=== PATIENT | female | born 1950 | race Caucasian/White ===

== ENCOUNTER → 2016-12-22 | Outpatient (CLI) | payer OTHER ==
[2012-10-12 14:31] VITALS: BP 179/59
--- NOTE | 2016-12-22 12:46 | MG ---
HISTORY: SCREENING Comparison: 06/18/2015, 06/03/2014 FINDINGS: Bilateral CC and MLO projections of the right and left breast were obtained. Scattered fibroglandul ar tissue is seen to be present. No significant architectural distortion, mass or clustered microca lcifications can be observed to suggest malignancy. No skin thickening or nipple retraction is appr eciated. No pathological lymphadenopathy can be identified. Partially visualized battery pack in t he left chest wall. IMPRESSION: NO RADIOGRAPHIC EVIDENCE OF MALIGNANCY. ACR CATEGORY I - NEGATIVE EXAM. FOLLOW-UP EXAM 1 YEAR. Diagnostic CAD was utilized and reviewed. * 0 (ZERO) - ASSESSMENT INCOMPLETE; ADDITIONAL IMAGING IS NEEDED. * 1/ (ONE) - NEGATIVE. * 2/II (TWO) - BENIGN FINDINGS. * 3/III (THREE) - PROBABLY BENIGN FINDING; SHORT INTERVAL FOLLOW-UP SUGGESTED. * 4/IV (FOUR) - SUSPICIOUS ABNORMALITY; BIOPSY SHOULD BE CONSIDERED. * 5/V - HIGHLY SUSPICIOUS OF MALIGNANCY; BIOPSY SHOULD BE PERFORMED. A NEGATIVE X-RAY REPORT SHOULD NOT DELAY BIOPSY IF A DOMINANT OR CLINICALLY SUSPICIOUS MASS IS PRESENT; 4 TO 8 PERCENT OF CANCERS ARE NOT IDENTIFIED BY X-RAY. A NEG ATIVE REPORT MAY REINFORCE THE CLINICAL IMPRESSION. ADENOSIS AND DENSE BREASTS MAY OBSCURE AN UNDER LYING NEOPLASM. Reported By:
== END ==
LOC: RAD 10:02
PROVIDERS: ATTEND Nurse Practitioner Family
DX: Z12.31 Encounter for screening mammogram for malignant neoplasm of breast (principal)
CPT/HCPCS: 77067

== ENCOUNTER → 2017-02-09 | Outpatient (CLI) | payer OTHER ==
[2012-10-12 14:31] VITALS: BP 179/59
--- NOTE | 2017-02-09 16:19 | RAD ---
HISTORY: PREOP. Study: PA and lateral chest. Comparison: Chest x-ray dated October 11, 2012 Findings: The trachea is midline. The cardiac silhouette is at the upper limits of normal. Interval placement of a multilead left chest cardiac pacemaker.. The lungs are clear without focal infiltrate or effu thai. The bony thorax is unremarkable. IMPRESSION: 1. No acute cardiopulmonary disease. Reported By:
== END | disposition home or self-care (01) ==
LOC: RAD 15:29
PROVIDERS: ATTEND Nurse Practitioner Family
DX: Z01.811 Encounter for preprocedural respiratory examination (principal); M25.561 Pain in right knee; M17.11 Unilateral primary osteoarthritis, right knee
CPT/HCPCS: 71020

== ENCOUNTER 2017-04-15 15:05 | Emergency (ER) | payer OTHER ==
[2017-04-15 15:18] VITALS: BP 152/74; BMI 43.2
[2017-04-15] MEDS ORDERED: DEMEROL INJ IM ONE (15:56)
[2017-04-15] MEDS ORDERED: PHENERGAN INJ 25 MG IM ONE (15:57)
[2017-04-15] MEDS ORDERED: DEMEROL INJ ONE (16:00)
[2017-04-15] MEDS ORDERED: PHENERGAN INJ 25 MG ONE (16:00)
--- NOTE | 2017-04-15 16:00 | DR.GENAD ---
HPI - PCP Primary Care Physician: NFD - Complaint/Symptoms Chief Complaint Doctors Comments: Patient is complaining of right ankle and foot pain all day. States she had right knee surgery recently and has been going to therapy with a little pain yesterday in her right foot but today she is unable to stand or put weight on the right ankle or foot. states the pain is 10 of 10. States she took oxycodone 10mg earlier today without improvement. States she is taking aspirin but she was on Eliquis for four weeks after the surgery. she denies chest pain or SOB. Patient states the new exercises is probabley what caused her ankle to hurt because it started hurting while she was doing the new exercise and has continurelly gotten worst. States she does not want crutches because she is using a walker presently. Chief Complaint:: PT STATES "I HAD KNEE SURGERY ON MARCH 06. I WAS AT THERAPY YESTERDAY ON THE BICYCLE MACHINE AND MY FOOT STARTED HURTING THEN. IT'S GOT WORSE THROUGH THE NIGHT. NOW IT'S UNBEARABLE." - Nurses notes reviewed Nurses Notes Review: Yes - Source History Provided: Patient, Family Member - Mode of Arrival Mode of Arrival: Wheelchair - Timing Onset of Chief Complaint: 04/14/17 Came on: Gradually - Duration Duration: Constant How lon Duration: Days - Location Location: right foot and ankle pain - Severity Severity: Severe - Modifying Factors Worsens:: standing or walking Improves:: rest PMH - PMH Past Medical History: No Past Medical History: Coronary Artery Disease, Hypertension Past Surgical History: Yes Surgical History: CABG/Valve Surgery, Cholecystectomy, RUGBY UNION FOOTBALLER Surgery, Ortho Surgery Past Surgical History Comment: PACEMAKER - SET AT 64. STENT X1. CERVICAL NECK FUSION. RIGHT TOTAL KNEE REPLACEMENT. GALLBLADDER REMOVAL. TUBAL LIGATION - Family History History of Family Medical Conditions: Yes Family Medical History: Cancer, [place], Coronary Artery Disease, Heart Failure, Hypertension - Social History Does patient currently use any type of tobacco product: No Have you used tobacco products in the last 12 months: No Type of Tobacco Use: Cigarettes How many years tobacco product used: 10 Does any household member use tobacco: Yes Alcohol Use: None Do you use any recreational Drugs:: No Lives With: Spouse Lives Where: Home - infectious screening In the last 2 months have you had wt loss of >10#?: NO Have you had fever, night sweats or hemotysis?: No Have you traveled outside the country in the last 6 months?: No Isolation: Standard ROS - Review of Systems Constitutional: No Symptoms Reported. negative: See HPI, Chills, Diaphoresis, Fever, Malaise, Weakness, Irritable, Fatigue, Loss of Appetite, Other Eyes: No Symptoms Reported. negative: See HPI, Eye Pain, Blurred Vision, Tearing, Discharge, Photophobia, Diplopia, Other ENTM: No Symptoms Reported. negative: See HPI, Ear Pain, Ear Discharge, Pulling on Ears, Hearing Loss, Nose Pain, Nose Discharge, Epistaxis, Nose Congestion, Mouth Pain, Mouth Swelling, Loose Teeth, Drooling, Throat Pain, Throat Swelling, Ear Foreign Body Respiratoy: No Symptoms Reported. negative: See HPI, Productive Cough, Non- Productive Cough, Moist Cough, Dry Cough, Hacking Cough, Barking Cough, Brassy Cough, Orthopnea, Short of Breath, Stridor, Wheezing, Hemoptysis, Other Cardiovascular: No Symptoms Reported. negative: See HPI, Chest Pain, Edema, Palpitations, Syncope, Cyanosis, Skin Mottling, Other Gastrointestinal/Abdominal: No Symptoms Reported. negative: Abdominal Pain, Diarrhea Genitourinary: No Symptoms Reported. negative: See HPI, Discharge, Dysuria, Frequency, Hematuria, Pain, Bleeding, Other Neurological: No Symptoms Reported Musculoskeletal: No Symptoms Reported, Right, Ankle (swelling, warm, tender), Foot Integumentary: No Symptoms Reported Hematologic/Lymphatic: No Symptoms Reported. negative: See HPI, Anemia, Blood Clots, Easy Bleeding, Easy Bruising, Swollen Glands, Lymphadenopathy, Other Endocrine: No Symptoms Reported Psychiatric: No Symptoms Reported PE - Vital Signs Vitals: Temperature 98.0 F Pulse Rate 89 Respiratory Rate 24 Blood Pressure [Right Arm] 179/59 Blood Pressure 152/74 O2 Sat by Pulse Oximetry 97 - General Limitations: No Limitations General Appearance: Alert, In Distress - Head Head Exam: Normal Inspection, Atraumatic, Normocephalic - Eyes Eye exam: Normal Appearance, PERRL, EOMI. negative: Scleral Icterus, Conjunctival Injection, Nystagmus, Miosis, Mydrasis, Periorbital Swelling, Periorbital Tenderness, Other - ENT ENT Exam: Normal Exam, Normal Oropharynx, Normal External Ear Exam, Mucous Membranes Moist, TM's Normal Bilaterally External Ear Exam: Normal External Inspection TM/Canal Exam: Bilateral Normal Nose Exam: Normal Nose Exam Mouth Exam: Normal Inspection Throat Exam: Normal Inspection - Neck Neck Exam: Normal Inspection, Full ROM, Trachea Midline - Chest Chest Inspection: Normal Inspection, Symmetric Chest Wall Rise - Respiratory Respiratory Exam: Normal Lung Sounds Bilat Respiratory Exam: Bilateral Clear to Auscultation - Cardiovascular Cardiovascular Exam: Regular Rate, Normal Rhythm, Normal Heart Sounds, Systolic Murmur - Abdominal Exam Abdominal Exam: Normal Inspection, Normal Bowel Sounds Abdominal Tenderness: negative: RUQ, RLQ, LUQ, LLQ, Epigastrium, Suprapubic, Diffuse, Mild, Moderate, Severe, Other - Extremities Extremities Exam: Normal Inspection, Full ROM, Normal Capillary Refill, Joint Swelling - Back Back Exam: Normal Inspection, Full ROM. negative: Tenderness, (R) CVA Tenderness, (L) CVA Tenderness, Muscle Spasm, Paraspinal Tenderness, Vertebral Tenderness, Rashes, (R) Sciatic Notch Tenderness, (L) Sciatic Notch Tendern, (R ) Straight Leg Raise, (L) Straight Leg Raise, Other - Neurologic Neurological Exam: Alert, Oriented X3, CN II-XII Intact, Reflexes Normal. negative: Normal Gait (gait not tested) - Skin Skin Exam: Warm, Dry, Intact, Normal Color ROR - Labs Reviewed Laboratory Results Reviewed?: Yes (all labs and x-ray results reviewed and discussed with patient) Result Diagrams: 04/15/17 16:14 04/15/17 16:14 Laboratory: WBC 14.7 X10^3/uL (3.6-10.0) H 04/15/17 16:14 RBC 4.11 X10^6/uL (3.5-5.4) 04/15/17 16:14 Hgb 12.4 g/dL (12.0-16.0) 04/15/17 16:14 Hct 37.3 % (36.0-47.0) 04/15/17 16:14 MCV 90.7 fL (80.0-100.0) 04/15/17 16:14 MCH 30.3 pg (27.0-34.0) 04/15/17 16:14 MCHC 33.4 g/dL (33.0-35.0) 04/15/17 16:14 RDW 14.0 % (11.6-16.5) 04/15/17 16:14 Plt Count 310 X10^3/uL (150.0-450.0) 04/15/17 16:14 MPV 9.5 fL (7.4-11.0) 04/15/17 16:14 Neut % 68.4 % (42.0-75.0) 04/15/17 16:14 Lymph % 21.4 % (21.0-51.0) 04/15/17 16:14 [place] % 8.2 % (0.0-13.0) 04/15/17 16:14 Eos % 1.1 % (0.9-2.9) 04/15/17 16:14 Baso % 0.9 % (0.2-1.0) 04/15/17 16:14 Neut # 10.1 x10^3/uL (2.2-4.8) H 04/15/17 16:14 Lymph # 3.1 X10^3/uL (1.3-2.9) H 04/15/17 16:14 [place] # 1.2 x10^3/uL (0.3-0.8) H 04/15/17 16:14 Eos # 0.2 x10^3/uL (0.0-0.2) 04/15/17 16:14 Baso # 0.1 X10^3/uL (0.0-0.1) 04/15/17 16:14 Absolute Nucleated RBC 0.0 /100WBC 04/15/17 16:14 D-Dimer > 5000 ng/mL (0-400) H* 04/15/17 16:14 Sodium 137 mmol/L (136-145) 04/15/17 16:14 Corrected Sodium 138 mmol/L (136-145) 04/15/17 16:14 Potassium 3.4 mmol/L (3.5-5.1) L 04/15/17 16:14 Chloride 103 mmol/L (98-107) 04/15/17 16:14 Carbon Dioxide 24.8 mmol/L (21-32) 04/15/17 16:14 BUN 18 mg/dL (7-18) 04/15/17 16:14 Creatinine 1.05 mg/dL (0.55-1.02) H 04/15/17 16:14 Est GFR (MDRD) Af Amer > 60 (>60) 04/15/17 16:14 Est GFR (MDRD) Non-Af 56 (>60) L 04/15/17 16:14 Glucose 121 mg/dL (65-99) H 04/15/17 16:14 Uric Acid 5.0 mg/dL (2.6-6.0) 04/15/17 16:14 Calcium 8.8 mg/dL (8.5-10.1) 04/15/17 16:14 - XRAY XRAY Interpreted by: Radiologist (Venous doppler: Negative for DVT) XRAY Findings: right forx x-ray: No acute osseous abnormalities identified. Osteopenia - Diagnosis Discharge Problem: Ankle pain, right, Tendonitis of ankle, Hyperglycemia Strain of ankle, right Qualifiers: Encounter type: initial encounter Qualified Code(s): S96.911A - Strain of unspecified muscle and tendon at ankle and foot level, right foot, initial encounter - Discharge Plan Disposition: 01 HOME, SELF-CARE Condition: Stable Prescriptions: Naproxen [Naprosyn] 500 mg PO BID PRN #24 tab PRN Reason: Pain/Inflammation - Follow ups/Referrals Follow ups/Referrals: Gaurav ROWE [Primary Care Provider] - 3 days RACHELLE LINARES [STAFF PHYSICIAN] - 3 days - Instructions Instructions: Tendinitis and Tenosynovitis-SportsMed, Tendon Injury
[2017-04-15] MEDS ORDERED: SOLU-Medrol 125 MG VIAL ONE (16:34)
[2017-04-15] MEDS ORDERED: TORADOL 30 MG VIAL IVP ONE (16:34)
[2017-04-15] MEDS ORDERED: SOLU-Medrol 125 MG VIAL IVP ONE (16:34)
[2017-04-15] MEDS ORDERED: TORADOL 30 MG VIAL ONE (16:34)
[2017-04-15 16:59] LABS: BLOOD UREA NITROGEN 18 mg/dL (7-18); CALCIUM 8.8 mg/dL (8.5-10.1); CARBON DIOXIDE 24.8 mmol/L (21-32); CHLORIDE 103 mmol/L (98-107); COR NA(FOR HYPERGLY) 138 mmol/L (136-145); CREATININE 1.05 mg/dL (0.55-1.02); SODIUM 137 mmol/L (136-145); eGFR BLACK RACES > 60 (>60); eGFR NON BLACK RACES 56 (>60)
[2017-04-15 17:00] LABS: BASOPHILS # (AUTO) 0.1 X10^3/uL (0.0-0.1); BASOPHILS % (AUTO) 0.9 % (0.2-1.0); EOSINOPHILS # (AUTO) 0.2 x10^3/uL (0.0-0.2); EOSINOPHILS % (AUTO) 1.1 % (0.9-2.9); HEMATOCRIT 37.3 % (36.0-47.0); HEMOGLOBIN 12.4 g/dL (12.0-16.0); LYMPHOCYTES # (AUTO) 3.1 X10^3/uL (1.3-2.9); LYMPHOCYTES % (AUTO) 21.4 % (21.0-51.0); MEAN CORPUSCULAR HEMOGLOBIN 30.3 pg (27.0-34.0); MEAN CORPUSCULAR HGB CONC 33.4 g/dL (33.0-35.0); MEAN CORPUSCULAR VOLUME 90.7 fL (80.0-100.0); MEAN PLATELET VOLUME 9.5 fL (7.4-11.0); MONOCYTES # (AUTO) 1.2 x10^3/uL (0.3-0.8); MONOCYTES % (AUTO) 8.2 % (0.0-13.0); NEUTROPHILS # (AUTO) 10.1 x10^3/uL (2.2-4.8); NEUTROPHILS % (AUTO) 68.4 % (42.0-75.0); PLATELET COUNT 310 X10^3/uL (150.0-450.0); RED BLOOD COUNT 4.11 X10^6/uL (3.5-5.4); WHITE BLOOD COUNT 14.7 X10^3/uL (3.6-10.0)
--- NOTE | 2017-04-15 17:12 | RAD ---
History: Right ankle pain Technique: Three views of the right ankle Comparison:NONE Findings: There is mild soft tissue swelling along the lateral aspect of the ankle. There is generalized osteop enia. There is no acute fracture or dislocation demonstrated. The ankle mortise and talar dome are in tact. Impression: 1. Lateral soft tissue swelling. No acute osseous abnormalities are demonstrated. 2. Osteopenia. Reported By:
--- NOTE | 2017-04-15 17:13 | RAD ---
History: Right foot pain. Technique: Three views of the right foot Comparison:NONE Findings: There is generalized osteopenia. There is no acute fracture or dislocation demonstrated. The tarsomet atarsal articulations appear aligned. Impression: 1. No acute osseous abnormalities identified. 2. Osteopenia Reported By:
--- NOTE | 2017-04-15 18:09 | VAS ---
HISTORY: Pain Study: Venous Doppler Comparison: None TECHNIQUE: Multiple marin scale and color flow Doppler images of the deep venous system were obtained of the right lower extremity FINDINGS: There is normal respiratory phasicity, compression and augmentation of the extremity veins without ev idence of acute DVT. IMPRESSION: 1. Negative for DVT. Reported By:
== END 2017-04-15 18:50 | disposition home or self-care (01) ==
LOC: ER 15:24
DX: S96.911A Strain of unspecified muscle and tendon at ankle and foot level, right foot, initial encounter (principal); M25.571 Pain in right ankle and joints of right foot; M77.9 Enthesopathy, unspecified; R73.9 Hyperglycemia, unspecified; Y33.XXXA Other specified events, undetermined intent, initial encounter; Y92.89 Other specified places as the place of occurrence of the external cause; M85.80 Other specified disorders of bone density and structure, unspecified site; R79.1 Abnormal coagulation profile
CPT/HCPCS: 36415; 73610; 73630; 80048; 84550; 85025; 85378; 93971; 96365; 96372; 96374; 96375; 99283; A4222; J1885; J2175; J2550; J2930

== ENCOUNTER 2017-05-20 21:55 | Emergency (ER) | payer OTHER ==
[2017-05-20 22:34] VITALS: BP 153/64; BMI 41.8
[2017-05-20] MEDS ORDERED: PHENERGAN INJ 25 MG IM ONE (23:20)
[2017-05-20] MEDS ORDERED: DEMEROL INJ IM ONE (23:20)
[2017-05-20] MEDS ORDERED: PREDNISONE TAB 20 MG PO ONE ×2 (23:21→23:42)
--- NOTE | 2017-05-20 23:26 | DR.GENAD ---
HPI - PCP Primary Care Physician: Yaakov WILCOX NANNY CAREGIVER - Complaint/Symptoms Chief Complaint Doctors Comments: Patient is complaining of severe left hip pain for the past 24 hours getting worst today with problems walking due to the hip pain. Patient states the pain is 10 of 10. she denies any recent trauma. States she just had right knee surgery in [place] recently and she has had a problem with stenosis in her back. She states she just went to her 's 50th class re-union and she had to take six Alieve 200mg and it still did not control the pain. She denies dysuria, hematuia, fever or chills. Chief Complaint:: LEFT HIP PAIN SINCE YESTERDAY EVENING. CAN'T HARDLY WALK, CAN' T STAND, CAN'T SIT WITHOUT HURTING Self Treatment fo Chief Complaint: ALEVE LAST TAKEN 2 HOURS AGO 400MG. 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 , Ortho Surgery, Tonsillectomy Past Surgical History Comment: PACE MAKER/STENT, CERVICAL FUSION - Family History History of Family Medical Conditions: Yes Family Medical History: Cancer, [place], Coronary Artery Disease, Heart Failure, Hypertension Family Medical History Comment: RENAL DISEASE, CVA - Social History Does patient currently use any type of tobacco product: No Have you used tobacco products in the last 12 months: No Type of Tobacco Use: None Does any household member use tobacco: No Alcohol Use: None Do you use any recreational Drugs:: No Lives With: Spouse Lives Where: Home - infectious screening In the last 2 months have you had wt loss of >10#?: NO Have you had fever, night sweats or hemotysis?: No Have you traveled outside the country in the last 6 months?: No Isolation: Standard ROS - Review of Systems Constitutional: No Symptoms Reported. negative: See HPI, Chills, Diaphoresis, Fever, Malaise, Weakness, Irritable, Fatigue, Loss of Appetite, Other Eyes: No Symptoms Reported. negative: See HPI, Eye Pain, Blurred Vision, Tearing, Discharge, Photophobia, Diplopia, Other ENTM: No Symptoms Reported Respiratoy: No Symptoms Reported. negative: See HPI, Productive Cough, Non- Productive Cough, Moist Cough, Dry Cough, Hacking Cough, Barking Cough, Brassy Cough, Orthopnea, Short of Breath, Stridor, Wheezing, Hemoptysis, Other Cardiovascular: No Symptoms Reported. negative: See HPI, Chest Pain, Edema, Palpitations, Syncope, Cyanosis, Skin Mottling, Other Gastrointestinal/Abdominal: No Symptoms Reported. negative: See HPI, Abdominal Pain, Constipation, Diarrhea, Nausea, Vomiting, Food Intolerance, Other Genitourinary: No Symptoms Reported. negative: See HPI, Discharge, Dysuria, Frequency, Hematuria, Pain, Bleeding, Other Neurological: No Symptoms Reported Musculoskeletal: No Symptoms Reported, Left, Hip Integumentary: No Symptoms Reported. negative: See HPI, Change in Color, Change in Hair/Nails, Dryness, Lesions, Lumps, Rash, Itching, Wound, Bruises, Juandice, Other Hematologic/Lymphatic: No Symptoms Reported Endocrine: No Symptoms Reported Psychiatric: No Symptoms Reported PE - Vital Signs Vitals: Temperature 98.4 F Pulse Rate 67 Respiratory Rate 20 Blood Pressure [Right Arm] 179/59 Blood Pressure 153/64 O2 Sat by Pulse Oximetry 98 - General Limitations: No Limitations General Appearance: Alert, In Distress (moderate), Obese - Head Head Exam: Normal Inspection, Atraumatic, Normocephalic - Eyes Eye exam: Normal Appearance, PERRL, EOMI, Scleral Icterus. negative: Conjunctival Injection, Nystagmus, Miosis, Mydrasis, Periorbital Swelling, Periorbital Tenderness, Other - ENT ENT Exam: Normal Exam, Normal Oropharynx, Normal External Ear Exam, Mucous Membranes Moist, TM's Normal Bilaterally External Ear Exam: Normal External Inspection TM/Canal Exam: Bilateral Normal Nose Exam: Normal Nose Exam Mouth Exam: Normal Inspection Throat Exam: Normal Inspection - Neck Neck Exam: Normal Inspection, Full ROM, Trachea Midline - Chest Chest Inspection: Normal Inspection, Symmetric Chest Wall Rise - Respiratory Respiratory Exam: Normal Lung Sounds Bilat Respiratory Exam: Bilateral Clear to Auscultation - Cardiovascular Cardiovascular Exam: Regular Rate, Normal Rhythm, Normal Heart Sounds. negative : Bradycardia, Tachycardia, Irregular Rhythm, Systolic Murmur, Diastolic Murmur , Rubs, Gallop, Clicks, JVD, +S1, +S2, +S3, +S4, Other - Abdominal Exam Abdominal Exam: Normal Inspection, Normal Bowel Sounds, Soft, Dimnished Bowel Sounds. negative: Distention, Tenderness, Guarding, Rebound, Rigidity, Hyperactive Bowel Sounds, Hypoactive Bowel Sounds, Organomegaly, Trauma, Incision, Ascites, Mass, Bruit, Pulsatile Mass, Hernia, Other Abdominal Tenderness: negative: RUQ, RLQ, LUQ, LLQ, Epigastrium, Suprapubic, Diffuse, Mild, Moderate, Severe, Other - Extremities Extremities Exam: Normal Inspection, Full ROM, Tenderness (left hip tender on palpation), Normal Capillary Refill - Back Back Exam: Normal Inspection, Full ROM, Tenderness (lower singer back tender L4 midline ), Paraspinal Tenderness. negative: (R) Straight Leg Raise, (L) Straight Leg Raise - Neurologic Neurological Exam: Alert, Oriented X3, CN II-XII Intact, Reflexes Normal. negative: Normal Gait (gait not tested) - Psychiatric Psychiatric Exam: Normal Affect, Normal Mood - Skin Skin Exam: Warm, Dry, Intact, Normal Color ROR - Labs Reviewed Laboratory Results Reviewed?: Yes (all x-ray results reviewed and discussed with patient and spouse) - XRAY XRAY Interpreted by: Self (left hip: no fracture or dislocation noted; Early degenerative changes noted.) - Diagnosis Discharge Problem: Left hip pain, Degenerative arthritis of hip, Degenerative arthritis of lumbar spine - Discharge Plan Disposition: 01 HOME, SELF-CARE Condition: Stable Prescriptions: Hydrocodone-Acet 7.5 mg/325 mg [[place] 7.5/325 mg Tab] 1 tab PO Q8H PRN #21 tab PRN Reason: Pain Methylprednisolone Dosepak 4Mg [MEDROL DOSEPAK (4 mg tab x 21)] 1 jitendra PO ONCE # 1 jitendra - Follow ups/Referrals Follow ups/Referrals: MIKE WILCOX [Primary Care Provider] - 3 days RACHELLE LINARES [STAFF PHYSICIAN] - 3 days - Instructions Instructions: Degenerative Disk Disease, Osteoarthritis, Joint Pain
[2017-05-20] MEDS ORDERED: DEMEROL INJ ONE (23:42)
[2017-05-20] MEDS ORDERED: PHENERGAN INJ 25 MG ONE (23:42)
[2017-05-21] MEDS ORDERED: TORADOL 60 MG VIAL ONE (01:06)
[2017-05-21] MEDS ORDERED: TORADOL 60 MG VIAL IM ONE (01:07)
--- NOTE | 2017-05-21 03:21 | RAD ---
Left hip three views Indication: Left hip pain. Findings: There is no cortical lucency or malalignment. Mild bilateral hip joint and SI joint DJD not ed. Bowel-gas fears sacrum. Impression: No acute left hip fracture. Reported By:
== END 2017-05-21 01:40 | disposition home or self-care (01) ==
LOC: ER 21:55
DX: M19.90 Unspecified osteoarthritis, unspecified site (principal); M47.896 Other spondylosis, lumbar region; M25.552 Pain in left hip
CPT/HCPCS: 73501; 96372; 99282; J1885; J2175; J2550; J7506

== ENCOUNTER 2017-05-25 09:15 | Day surgery (SDC) | payer OTHER ==
--- NOTE | 2017-05-25 12:00 | DR.H&P ---
H&P - History & Physical for Day of: H&P Date: 05/25/17 - Chief Complaint Chief Complaint: my back hurts on lower left side down to my left ankle. - Allergies Allergies/Adverse Reactions: Allergies Allergy/AdvReac Type Severity Reaction Status Date / Time No Known Drug Allergies Allergy Verified 04/16/17 23:30 - History of Present Illness History of Present Illness: pt reports long h/o above cc. received reggie x2 [address] Ly with very good results. presents today with similar pain. pain began about 2 weeks ago with no obvious cause. pt unable to have MRI secondary to PM. 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 pos slr on right.) Mood Description: Calm Speech Pattern: Clear - Assessment/Plan (1) Radiculopathy of lumbar region Status: Acute Plan: Interlaminar REGIGE L4-5 left
[2017-05-25] MEDS ORDERED: MARCAINE 0.25% INJ ONE (12:06)
[2017-05-25] MEDS ORDERED: KENALOG INJ 40 MG IM ONE (12:06)
[2017-05-25] MEDS ORDERED: XYLOCAINE 1 % (PLAIN) ONE (12:06)
== END 2017-05-25 12:30 | disposition home or self-care (01) ==
LOC: SURG1 09:15
PROVIDERS: ATTEND Student in an Organized Health Care Education/Training Program
PROC: 3E0R3BZ Introduction of Anesthetic Agent into Spinal Canal, Percutaneous Approach (ICD-10-PCS; 2017-05-25)
PROC: 3E0R33Z Introduction of Anti-inflammatory into Spinal Canal, Percutaneous Approach (ICD-10-PCS; principal; 2017-05-25 09:00)
DX: M54.17 Radiculopathy, lumbosacral region (principal)
CPT/HCPCS: 62323; 76000; S0020; J2001; J3301

== ENCOUNTER 2017-06-12 11:34 | Day surgery (SDC) | payer OTHER ==
--- NOTE | 2017-06-12 12:58 | DR.H&P ---
H&P - History & Physical for Day of: H&P Date: 06/12/17 - Chief Complaint Chief Complaint: lower back hurts into left buttock - Allergies Allergies/Adverse Reactions: Allergies Allergy/AdvReac Type Severity Reaction Status Date / Time No Known Drug Allergies Allergy Verified 04/16/17 23:30 - History of Present Illness History of Present Illness: planned reggie of L4-5 two weeks ago resulted in more of L3-4. good relief down leg, but stil pain in buttock on left. good results 8 years ago with series of reggie's - Past Medical History Past Medical History: Coronary Artery Disease, Hypertension - Past Surgical History Surgical History: Appendectomy, CABG/Valve Surgery, Cholecystectomy, TIE SAWYER Surgery , Ortho Surgery, Tonsillectomy - Family History Family Medical History: Cancer, [place], Coronary Artery Disease, Heart Failure, Hypertension - Physical Exam Vital Signs: Temperature 98.1 F Pulse Rate 68 Respiratory Rate 20 Blood Pressure [Right Arm] 179/59 Blood Pressure 153/64 O2 Sat by Pulse Oximetry 98 Musculoskeletal: Back:Lumbar (lumbar tenderness on left.) Psychiatric: Normal Mood Description: Calm - Assessment/Plan (1) Radiculopathy of lumbar region Status: Acute Plan: L4-5 interlaminar reggie left
[2017-06-12] MEDS ORDERED: XYLOCAINE 1 % (PLAIN) ONE (12:59)
[2017-06-12] MEDS ORDERED: KENALOG INJ 40 MG IM ONE (12:59)
[2017-06-12] MEDS ORDERED: MARCAINE 0.25% INJ ONE (13:00)
[2017-06-12 13:41] VITALS: BP 148/62
== END 2017-06-12 13:30 | disposition home or self-care (01) | DRG 552 ==
LOC: SURG1 11:34
PROVIDERS: ATTEND Student in an Organized Health Care Education/Training Program
PROC: 3E0R3BZ Introduction of Anesthetic Agent into Spinal Canal, Percutaneous Approach (ICD-10-PCS; 2017-06-12)
PROC: 3E0R33Z Introduction of Anti-inflammatory into Spinal Canal, Percutaneous Approach (ICD-10-PCS; principal; 2017-06-12 13:30)
DX: M54.5 Low back pain (principal); M54.17 Radiculopathy, lumbosacral region
CPT/HCPCS: 62323; 76000; S0020; J2001; J3301

== ENCOUNTER → 2017-07-13 | Outpatient (CLI) | payer OTHER ==
--- NOTE | 2017-07-13 16:04 | CT ---
Lumbar spine CT without contrast Indication: Severe lower back pain Technique: Helical CT images of the lumbar spine were obtained without IV contrast. Reformatted image s in the coronal and sagittal planes were also generated for review. Comparison: None Findings: Vertebral body heights and alignment are normal. No acute fracture or subluxation is identi fied. There is mild-moderate multilevel degenerative disc disease and facet arthropathy, most signifi cant at L4-L5. There are also prominent broad-based disc bulges at L2-L3, L3-L4 and L4-L5, which resu lt in moderate-severe canal stenosis and at least mild bilateral foraminal narrowing. The SI joints a re intact. There is mild calcification of the aortoiliac system without aneurysm. There is colonic diverticulosi s without evidence of acute inflammation. The remaining unenhanced visualized paraspinal soft tissues are grossly unremarkable. Impression: No acute osseous abnormality of the lumbar spine. Moderate multilevel degenerative changes of the lumbar spine, as detailed above. If clinically warran zelda, further evaluation with MRI is recommended. Additional incidental findings, as above. Reported By:
== END ==
LOC: RAD 13:24
PROVIDERS: ATTEND Nurse Practitioner Family
DX: M54.17 Radiculopathy, lumbosacral region (principal); M25.552 Pain in left hip; M79.605 Pain in left leg
CPT/HCPCS: 72131

== ENCOUNTER → 2018-01-07 | Outpatient (CLI) | payer OTHER ==
[2018-01-07 14:02] VITALS: BP 148/62
--- NOTE | 2018-01-07 15:13 | RAD ---
Examination: Right foot, three views History: Fell Comparison reference April 15, 2017 Findings: There is a faint lucency identified involving the distal neck of the 4th metatarsal. This w as not seen on a prior examination. There is no other suggestion of fracture or dislocation in the ri t foot. Impression: Subtle lucency distal 4th metatarsal. Correlate clinically for localized injury to this a jennifer. Follow-up as appropriate. Reported By:
== END ==
LOC: RAD 14:47
PROVIDERS: ATTEND Nurse Practitioner Family
DX: M25.571 Pain in right ankle and joints of right foot (principal)
CPT/HCPCS: 73630

== ENCOUNTER 2018-11-17 09:51 | Observation (INO) ==
--- NOTE | 2018-11-17 10:03 | DR.EXTPAIN ---
HPI - Time seen Time seen: 10:03 - Complaint/Symptoms Chief Complaint Doctor Comments: Patient states she getting ready to take a shower and had the water running and she stepped into the shower but forgot something and stepped back out on a title floor and her foot was wet and she slide and fell hitting her right knee and the back of her head. She denies LOC, nausea or vomiting. States the pain is 9 of 10 in her right knee and back of her head. She is able to move her neck well and denies neck pain. States her left foot hurts and she do not remember hitting it. She is unsure of her last tetanus. States she is a patient of Jana Mccall and she is taking Lisinopril 40mg po qhs; aspirin 81mg; lipitor 40mg and genfebolate. She denies chest pain or SOB. - Nurses notes reviewed Nurses Notes Review: Yes - Source History Provided: Patient - Mode of arrival Mode of Arrival: EMS - Context History of: Arthritis, Knee Operation, Shoulder Operation - Associated signs and symptoms Associated Signs and Symptoms: Laceration (right knee 6x9 cm laceration), Pain PMH - PMH Past Medical History: Coronary Artery Disease, Hypertension Past Surgical History: Yes Surgical History: Appendectomy, CABG/Valve Surgery, Cholecystectomy, TRANSITION OF CARE SPECIALIST Surgery, Ortho Surgery, Tonsillectomy - Family History Family Medical History: Cancer, [place], Coronary Artery Disease, Heart Failure, Hypertension - Social History Do you use any recreational Drugs:: No ROS - Review of Systems Constitutional: No Symptoms Reported Eyes: No Symptoms Reported ENTM: No Symptoms Reported Respiratoy: No Symptoms Reported Cardiovascular: No Symptoms Reported. negative: See HPI, Chest Pain, Edema, Palpitations, Syncope, Cyanosis, Skin Mottling, Other Gastrointestinal/Abdominal: No Symptoms Reported. negative: See HPI, Abdominal Pain, Constipation, Diarrhea, Nausea, Vomiting, Food Intolerance, Other Genitourinary: No Symptoms Reported Neurological: No Symptoms Reported, Problems Walking (right knee pain) Musculoskeletal: No Symptoms Reported, Right, Left, Knee, Foot Integumentary: No Symptoms Reported, Wound (right knee with 6 x 9 cm evulsion laceration with adipose tissue evident) Hematologic/Lymphatic: No Symptoms Reported, Easy Bruising Endocrine: No Symptoms Reported Psychiatric: No Symptoms Reported. negative: See HPI, Anxiety, Depression, Hallucinations, Excessive crying, Suicidal, Other PE - General Limitations: No Limitations General Appearance: Alert, In Distress (moderate), Obese - Head Head Exam: Normal Inspection, Normocephalic. negative: Atraumatic (4 cm soft tissue nodule left occipital scalp) - Eyes Eye exam: Normal Appearance, PERRL, EOMI. negative: Scleral Icterus, Conjunctival Injection, Nystagmus, Miosis, Mydrasis, Periorbital Swelling, Periorbital Tenderness, Other - ENT ENT Exam: Normal Exam, Normal Oropharynx, Normal External Ear Exam, Mucous Membranes Moist, TM's Normal Bilaterally - Neck Neck Exam: Normal Inspection, Full ROM, Trachea Midline - Chest Chest Inspection: Normal Inspection, Symmetric Chest Wall Rise. negative: Tenderness, Rash, Abscess, Other - Respiratory Respiratory Exam: Normal Lung Sounds Bilat Respiratory Exam: Bilateral Clear to Auscultation - Cardiovascular Cardiovascular Exam: Regular Rate, Normal Rhythm, Normal Heart Sounds - Abdominal Exam Abdominal Exam: Normal Inspection, Normal Bowel Sounds, Soft Abdominal Tenderness: negative: RUQ, RLQ, LUQ, LLQ, Epigastrium, Suprapubic, Diffuse, Mild, Moderate, Severe, Other - Extremities Extremities Exam: Normal Inspection, Full ROM, Tenderness (right knee with large laceratio; tender on movement), Normal Capillary Refill. negative: Calf Tend erness - Upper Extremities Shoulder Exam: Normal Inspection, Full ROM Arm Exam: Normal Inspection, Full ROM. negative: Tenderness, Swelling, Abrasion, Laceration, Ecchymosis, Deformity, Crepitus, Erythema, Other Elbow Exam: Normal Inspection, Full ROM. negative: Tenderness, Swelling, Abrasion, Laceration, Ecchymosis, Deformity, Crepitus, Dislocation, Erythema, Effusion, Pain w/ pronation, Pain w/ Spuination, Tenderness over Radial Head, Other Forearm Exam: Normal Inspection, Full ROM. negative: Tenderness, Swelling, Abrasion, Laceration, Ecchymosis, Deformity, Crepitus, Erythema, Dislocation, Other Hand Exam: Normal Inspection, Full ROM. negative: Tenderness, Swelling, Abrasion, Laceration, Ecchymosis, Skin Avulsion, Deformity, Crepitus, Erythema, Dislocation, Amputation, Nail Avulsion, Subungual Hematoma, Other Neuromotor Exam: Normal Exam Neurosensory Exam: Normal Exam Hand Tendon Exam: negative: Flexor Digitorium Profundus (Location) (normal) Upper Ext. Vascular Exam: Capillary Refill (normal), Radial Pulse (normal) - Lower Extremities Hip/Pelvis Exam: Normal Inspection, Full ROM. negative: Tenderness, Swelling, Abrasion, Laceration, Ecchymosis, Deformity, Crepitus, Dislocation, Erythema, External Rotation, Internal Rotation, Shortening, Pelvis Stable, Other Upper Leg Exam: Normal Inspection, Full ROM Knee Exam: Normal Inspection, Full ROM, Tenderness (right knee with large laceration), Swelling, Laceration (right knee with 9 cm laceration), Crepitus Lower Leg Exam: Normal Inspection, Full ROM. negative: Tenderness, Swelling, Abrasion, Laceration, Deformity, Ecchymosis, Crepitus, Dislocation, Erythema, Palpable Cord, Homans' Sign, Achilles Tendon Intact, Other Ankle Exam: Normal Inspection, Full ROM, Tenderness (left ankle with slight tenderness;no swelling or erythema) Foot/Toe Exam: Normal Inspection, Full ROM, Tenderness (left lateral foot worker on palpation). negative: Swelling, Abrasion, Laceration, Ecchymosis, Deformity, Crepitus, Dislocation, Erythema, Amputation, Puncture Wound, Foreign Body, Calcaneal Tenderness, Nail Avulsion, Other Neurovascular/Tendon Exam: Normal Capillary Refill Gait Exam: Not Tested/Not Observed - Back Back Exam: Normal Inspection, Full ROM. negative: Tenderness, (R) CVA Tenderness, (L) CVA Tenderness, Muscle Spasm, Paraspinal Tenderness, Vertebral Tenderness, Rashes, (R) Sciatic Notch Tenderness, (L) Sciatic Notch Tendern, (R) Straight Leg Raise, (L) Straight Leg Raise, Other - Neurological Neurological Exam: Alert, Oriented X3, CN II-XII Intact, Reflexes Normal. negative: Normal Gait (gait not tested) - Psychiatric Psychiatric Exam: Normal Affect, Normal Mood. negative: Depressed, Agitated, Anxious, Flat Affect, Manic, Homicidal Ideation, Suicidal Ideation, Other - Skin Skin Exam: Warm, Dry, Intact, Normal Color Type of Lesion: Laceration (right knee with 9 cm laceration) Distribution: negative: Generalized, Involves Palms/Soles, Head, Face, Neck, Thorax, Chest, Back, Abdomen, Genitals, LUE, LLE, RUE, RLE, Other Description: negative: Size, Tenderness, Erythematous, Swelling, Macular, Papular, Vesicular, Blisters, Cofluent, Bullous, Petechial, Purpuric, Urticarial, Crusting, Discharge, Fluctuant, Indurated, Other - Vital Signs Vitals: Temperature 97.6 F Pulse Rate 61 Respiratory Rate 16 Blood Pressure [Right Arm] 179/59 Blood Pressure 217/98 O2 Sat by Pulse Oximetry 97 Course - Consultation Called: 11:29 Call Returned: 11:30 (Dr. Dhillon to take to surgery ) - Education/Counseling Education/Counseling: Patient, Family Educated On: Treatment, Diagnosis, Needs for Follow Up ROR - Labs Reviewed Laboratory Results Reviewed?: Yes (All x-ray results reviewed and discussed with patient) - XRAY XRAY Interpreted by: Radiologist (CT head: No acute intracranial changes noted), Self (Right foot: Degenerative changes noted at ankle but not acute fracture noted.) XRAY Findings: Right knee: Postoperative changes consistent with total knee arthroplasty. - Diagnosis Discharge Problem: Contusion of right knee, initial encounter, Left foot pain, Fall against object Laceration of skin of right knee Qualifiers: Encounter type: initial encounter Qualified Code(s): S81.011A - Laceration without foreign body, right knee, initial encounter Contusion of head Qualifiers: Encounter type: initial encounter Traumatic hematoma of scalp Qualifiers: Encounter type: initial encounter Qualified Code(s): S00.03XA - Contusion of scalp, initial encounter - Discharge Plan Condition: Stable - Follow ups/Referrals Follow ups/Referrals: MIKE MCCALL [Primary Care Provider] - 3 days - Instructions
[2018-11-17 10:08] VITALS: BMI 43.8
[2018-11-17] MEDS ORDERED: ADACEL or BOOSTRIX TDaP VACCINE IM ONE ×2 (10:16→10:25)
[2018-11-17] MEDS ORDERED: DEMEROL INJ IM ONE (10:17)
[2018-11-17] MEDS ORDERED: PHENERGAN INJ 25 MG IM ONE ×2 (10:18→10:24)
[2018-11-17] MEDS ORDERED: DEMEROL INJ ONE (10:25)
--- NOTE | 2018-11-17 11:16 | CT ---
HISTORY: Trauma Study: CT brain without contrast Comparison: None Technique: Multiple axial images of the brain were obtained from the skull base to the vertex without administration of IV contrast. Findings: No acute intraparenchymal hemorrhage or mass can be identified. No extra-axial fluid collections are seen. No alteration in the attenuation of the brain parenchyma can be identified to suggest acute or subacute ischemic change. The ventricular system is symmetric and nondilated. The extracranial structures are grossly unremarkable. IMPRESSION: 1. No acute intracranial process can be identified. Reported By:
--- NOTE | 2018-11-17 11:19 | RAD ---
HISTORY: Knee pain Study: Three views right knee Comparison: None Findings: No evidence for acute cortical disruption or dislocation. Postoperative changes consistent with total knee arthroplasty are observed. No periprosthetic lucency to suggest loosening or fracture can be identified. No significant joint effusion can be observed. IMPRESSION: Postoperative changes consistent with total knee arthroplasty. No acute abnormality can be observed. Reported By:
[2018-11-17] MEDS ORDERED: NS 1000 ML 1,000 ML ONE (11:22)
--- NOTE | 2018-11-17 11:35 | RAD ---
Examination: Left ankle, three views History: Pain Findings: There is cortical irregularity and minimal fragmentation at the tips of both medial and lateral malleoli. The joint space is symmetric. No definite acute fracture or dislocation is seen. Impression: Findings described suggest residual of old trauma to the lateral and medial sides of the ankle. No acute findings are demonstrated. Reported By:
--- NOTE | 2018-11-17 11:36 | RAD ---
HISTORY: Foot pain Study: Three views left foot Comparison: None Findings: No acute cortical disruption or dislocation can be identified. No significant soft tissue swelling or injury can be seen. The visualized portions of the talus and calcaneus are unremarkable. IMPRESSION: 1. Negative exam. Reported By:
[2018-11-17] MEDS ORDERED: BACITRACIN VIAL ONE (11:44)
[2018-11-17] MEDS ORDERED: HYDROGEN PEROXIDE 3% ONE (11:44)
[2018-11-17] MEDS ORDERED: BACTROBAN TOPICAL OINT ONE (11:44)
[2018-11-17] MEDS ORDERED: XYLOCAINE 1 % (PLAIN) ONE (11:44)
[2018-11-17] MEDS ORDERED: FENTANYL INJ 100 mcg ONE (12:14)
[2018-11-17] MEDS ORDERED: ANCEF 1 GRAM IV PREMIX* 1 G/50 ML BAG IV ONE ×2 (12:17→12:23)
[2018-11-17] MEDS ORDERED: ZOFRAN INJ 4 MG VIAL IVP PRN (13:09)
[2018-11-17] MEDS ORDERED: DILAUDID INJ IVP PRN (13:09)
[2018-11-17] MEDS ORDERED: BENADRYL INJ 50 MG VIAL IVP PRN (13:09)
[2018-11-17] MEDS ORDERED: PHENERGAN INJ 25 MG IM PRN (13:09)
[2018-11-17] MEDS ORDERED: REGLAN INJ 10 MG VIAL IVP PRN (13:09)
[2018-11-17] MEDS ORDERED: PERCOCET TAB 5/325 MG PO PRN (13:41)
[2018-11-17] MEDS ORDERED: RESTORIL CAP 30 MG PO PRN (14:29)
[2018-11-17] MEDS ORDERED: NS 100 ML IV + SPIKE MINIBAG* 100 ML ONE (14:39)
[2018-11-17] MEDS ORDERED: ANCEF VIAL 1 GRAM ONE (14:40)
[2018-11-17] MEDS ORDERED: VERSED ONE (15:56)
[2018-11-17] MEDS ORDERED: DIPRIVAN VIAL ONE (15:56)
[2018-11-17] MEDS ORDERED: ZOFRAN INJ 4 MG VIAL ONE (15:56)
[2018-11-17] MEDS ORDERED: KETALAR ONE (15:56)
[2018-11-17] MEDS: NORCO 10/325 TAB PO PRN (19:25)
[2018-11-17] MEDS ORDERED: MILK OF MAGNESIA PO SCH (21:00)
[2018-11-17] MEDS ORDERED: TRICOR TAB 160 MG PO SCH (21:00)
[2018-11-17] MEDS ORDERED: COLACE CAP 100 MG PO SCH (21:00)
[2018-11-17] MEDS: ANCEF VIAL 1 GRAM IVP SCH (23:20)
[2018-11-18 04:31] VITALS: BP 143/86
[2018-11-18] MEDS: ANCEF VIAL 1 GRAM IVP SCH (05:21)
[2018-11-18] MEDS: NORCO 10/325 TAB PO PRN (06:38)
[2018-11-18] MEDS ORDERED: LIPITOR TAB 40 MG PO SCH ×2 (09:00→21:00)
[2018-11-18] MEDS ORDERED: ASPIRIN 81 MG CHEWTAB PO SCH (09:00)
[2018-11-18] MEDS ORDERED: ZESTRIL TAB 40 MG PO SCH (09:00)
[2018-11-18] MEDS ORDERED: MOBIC TAB 15 MG PO SCH (09:00)
== END 2018-11-18 10:45 | disposition home or self-care (01) ==
LOC: ER 09:53 → MED/SURG 12:07 → SURG1 12:07
PROVIDERS: ADMIT Surgery; ATTEND Surgery
PROC: WOUNDCL (2018-11-17 12:10)
DX: E66.01 Morbid (severe) obesity due to excess calories; S81.012A Laceration without foreign body, left knee, initial encounter; S00.03XA Contusion of scalp, initial encounter; M13.89 Other specified arthritis, multiple sites; Z96.652 Presence of left artificial knee joint; S00.83XA Contusion of other part of head, initial encounter; Y92.003 Bedroom of unspecified non-institutional (private) residence as the place of occurrence of the external cause; W01.198A Fall on same level from slipping, tripping and stumbling with subsequent striking against other object, initial encounter
CPT/HCPCS: 70450; 73564; 73610; 73630; 87070; 87075; 87205; 90471; 90715; 96367; 96372; 96374; 99284; A4222; J3490; G0378; J0690; J2175; J2250; J2405; J2550; J2704; J3010; J7030

== ENCOUNTER 2019-03-20 01:08 | Inpatient (IN) ==
[2019-03-20] MEDS ORDERED: MORPHINE SULFATE INJ 2 MG INJ IVP ONE (01:39)
--- NOTE | 2019-03-20 01:39 | DR.EXTPAIN ---
HPI Time seen Time Seen by Provider: 03/20/19 01:29 PCP Primary Care Physician: BRENDEN Complaint/Symptoms Chief Complaint Doctor Comments: 68 yo female who presents for right leg pain. Which has been present for abscess on leg for 4 days. She hit the leg on metal table which broke the skin. She has no pain in the knee but in the right lower leg from the knee down. She was seen by orthopedic doctor on 03/19/19 who did imaging of the knee and advised this was not intrarticular and superficial infection. She has had puss come out of the 7 lesion on her leg. She state the pain is achy, 10/10, her right leg, the pain is like burning/throbbing. She was at ED on 01/15/19 and given bactrim DS and then given keflex by orthopedic doctor. The pain and abscess are worsening. Chief Complaint:: PAIN IN R LEG, SWELLING AND LESIONS Self Treatment fo Chief Complaint: CAME TO ER ON MONDAY, WAS GIVEN BACTRIM DS Source History Provided: Patient Mode of arrival Mode of Arrival: Ambulatory Timing Onset of Chief Complaint: 03/15/19 PMH PMH Past Medical History: Yes Past Medical History: Coronary Artery Disease, Dyslipidemia, Hypertension and [place] Past Surgical History: Yes Surgical History: Angioplasty/Stents, Appendectomy, Cholecystectomy and Ortho Surgery Family History History of Family Medical Conditions: Yes Family Medical History: Cancer, [place], Coronary Artery Disease and Hypertension Social History Do you use any recreational Drugs:: No infectious screening Have you traveled outside the country in the last 6 months?: No Isolation: Standard ROS Review of Systems Constitutional: No Symptoms Reported Eyes: No Symptoms Reported ENTM: No Symptoms Reported Respiratoy: No Symptoms Reported Cardiovascular: No Symptoms Reported Gastrointestinal/Abdominal: Nausea; negative Abdominal Pain and Vomiting Genitourinary: No Symptoms Reported Neurological: Headache (not worst of life and improved from 03/17/19 ) Musculoskeletal: No Symptoms Reported Integumentary: See HPI, Lesions, Rash and Wound Endocrine: No Symptoms Reported Psychiatric: No Symptoms Reported All Other Systems: Reviewed and Negative PE Vital Signs Vitals: Temperature 97.0 F Pulse Rate 80 Respiratory Rate 20 Blood Pressure [Right Arm] 143/86 Blood Pressure 124/71 O2 Sat by Pulse Oximetry 98 General Limitations: No Limitations General Appearance: Alert, In No Apparent Distress and Anxious Head Head Exam: Normal Inspection, Atraumatic and Normocephalic Eyes Eye exam: Normal Appearance and EOMI ENT ENT Exam: Normal Exam and Normal Oropharynx Neck Neck Exam: Normal Inspection and Full ROM Chest Chest Inspection: Normal Inspection Respiratory Respiratory Exam: Normal Lung Sounds Bilat and Accessory Muscle Use Respiratory Exam: Bilateral: Clear to Auscultation Cardiovascular Cardiovascular Exam: Regular Rate and Normal Rhythm Abdominal Exam Abdominal Exam: Normal Inspection, Normal Bowel Sounds and Soft Extremities Extremities Exam: Edema and Other (erythema, pustules 6, ranging from 1 cm to 1.5cm, on medial malleous prulent abscess with drainage) Upper Extremities Hand Exam: Normal Inspection Upper Ext. Vascular Exam: Capillary Refill Lower Extremities Knee Exam: Normal Inspection and Other (right knee to ankle cellulitis ) Ankle Exam: Full ROM, Swelling and Other (neg homen sign ) Neurovascular/Tendon Exam: Normal Capillary Refill Neurological Neurological Exam: Alert, Oriented X3, CN II-XII Intact and Normal Gait Psychiatric Psychiatric Exam: Normal Affect and Normal Mood Skin Skin Exam: Erythema and Other Type of Lesion: Abscess Description: Tenderness (at lesion sites on right knee ) Front/Back of Body, Lg ([place]): 1. abscess [id number] 2. abscess 3. " " 4. " " 5. " " 6. "" MDM Differential Diagnosis Differential Diagnosis: Other (purulent cellulitis ) COURSE Treatment Treatment: IVF vancomycin Reevaluation 1st: Improved (02:30 improved, still painful) 2nd: Improved (03:51, improved still painful at ankle) Consultation Called: 03:43 Call Returned: 03:43 Consultation Comments: Dr. Fitzgerald accepted admission Education/Counseling Education/Counseling: Patient, Family, Education and Counseling Educated On: Treatment, Diagnosis, Prognosis, Needs for Follow Up and Other ROR Labs Reviewed Result Diagrams: 03/20/19 02:15 03/20/19 02:15 Laboratory: 03/20/19 01:42 Knee - Right Gram Stain - Final WBC 13.6 X10^3/uL (3.6-10.0) H 03/20/19 02:15 RBC 4.49 X10^6/uL (3.5-5.4) 03/20/19 02:15 Hgb 14.0 g/dL (12.0-16.0) 03/20/19 02:15 Hct 41.3 % (36.0-47.0) 03/20/19 02:15 MCV 91.9 fL (80.0-100.0) 03/20/19 02:15 MCH 31.2 pg (27.0-34.0) 03/20/19 02:15 MCHC 33.9 g/dL (33.0-35.0) 03/20/19 02:15 RDW 15.1 % (11.6-16.5) 03/20/19 02:15 Plt Count 199 X10^3/uL (150.0-450.0) 03/20/19 02:15 MPV 9.7 fL (7.4-11.0) 03/20/19 02:15 Neut % (Auto) 64.7 % (42.0-75.0) 03/20/19 02:15 Lymph % (Auto) 24.9 % (21.0-51.0) 03/20/19 02:15 [place] % (Auto) 7.7 % (0.0-13.0) 03/20/19 02:15 Eos % (Auto) 1.8 % (0.9-2.9) 03/20/19 02:15 Baso % (Auto) 0.9 % (0.2-1.0) 03/20/19 02:15 Neut # (Auto) 8.8 x10^3/uL (2.2-4.8) H 03/20/19 02:15 Lymph # (Auto) 3.4 X10^3/uL (1.3-2.9) H 03/20/19 02:15 [place] # (Auto) 1.0 x10^3/uL (0.3-0.8) H 03/20/19 02:15 Eos # (Auto) 0.3 x10^3/uL (0.0-0.2) H 03/20/19 02:15 Baso # (Auto) 0.1 X10^3/uL (0.0-0.1) 03/20/19 02:15 Absolute Nucleated RBC 0.0 /100WBC 03/20/19 02:15 Sodium 138 mmol/L (136-145) 03/20/19 02:15 Corrected Sodium TNP 03/20/19 02:15 Potassium 4.0 mmol/L (3.5-5.1) 03/20/19 02:15 Chloride 103 mmol/L (98-107) 03/20/19 02:15 Carbon Dioxide 22.5 mmol/L (21-32) 03/20/19 02:15 BUN 28 mg/dL (7-18) H 03/20/19 02:15 Creatinine 1.97 mg/dL (0.55-1.02) H 03/20/19 02:15 Est GFR (MDRD) Af Amer 33 (>60) L 03/20/19 02:15 Est GFR (MDRD) Non-Af 27 (>60) L 03/20/19 02:15 Glucose 106 mg/dL (65-99) H 03/20/19 02:15 Calcium 8.7 mg/dL (8.5-10.1) 03/20/19 02:15 Opioid Opioid Risk Tool Total: 0 Total Score Risk Category: Low Risk Copyright: Marko PARKS predicting aberrant behaviors Diagnosis Narrative Support Text: Failure of outpt abx treatment for purulent cellulitis and KELLEY, will continue IVF NS and IV ABX, plan discussed with Dr. Fitzgerald and family. Time was spent discussing all lab findings, imaging, and clinical thought process. The patient states understanding and agreement. All questions were answered, and time was spent educating them on care plan.
[2019-03-20] MEDS ORDERED: ZOFRAN INJ 4 MG VIAL ONE (01:45)
[2019-03-20] MEDS ORDERED: ZOFRAN INJ 4 MG VIAL IVP ONE ×2 (01:45→01:48)
[2019-03-20] MEDS ORDERED: NS 1000 ML 1,000 ML ONE (01:45)
[2019-03-20] MEDS ORDERED: VANCOMYCIN HCL 1 GM VIAL ONE ×2 (01:45→21:38)
[2019-03-20] MEDS ORDERED: NS 250 ML IV 250 ML ONE ×2 (01:47→21:38)
[2019-03-20] MEDS ORDERED: MORPHINE SULFATE INJ 2 MG INJ ONE (01:49)
[2019-03-20] MEDS ORDERED: NS 1000 ML 1,000 ML IV ONE (01:49)
[2019-03-20] MEDS ORDERED: PHARMACY CONSULT - VANCOMYCIN XX SCH ×2 (02:00→05:00)
[2019-03-20 02:26] LABS: BASOPHILS # (AUTO) 0.1 X10^3/uL (0.0-0.1); BASOPHILS % (AUTO) 0.9 % (0.2-1.0); EOSINOPHILS # (AUTO) 0.3 x10^3/uL (0.0-0.2); EOSINOPHILS % (AUTO) 1.8 % (0.9-2.9); HEMATOCRIT 41.3 % (36.0-47.0); LYMPHOCYTES # (AUTO) 3.4 X10^3/uL (1.3-2.9); LYMPHOCYTES % (AUTO) 24.9 % (21.0-51.0); MEAN CORPUSCULAR HEMOGLOBIN 31.2 pg (27.0-34.0); MEAN CORPUSCULAR HGB CONC 33.9 g/dL (33.0-35.0); MEAN CORPUSCULAR VOLUME 91.9 fL (80.0-100.0); MEAN PLATELET VOLUME 9.7 fL (7.4-11.0); MONOCYTES % (AUTO) 7.7 % (0.0-13.0); NEUTROPHILS # (AUTO) 8.8 x10^3/uL (2.2-4.8); NEUTROPHILS % (AUTO) 64.7 % (42.0-75.0); PLATELET COUNT 199 X10^3/uL (150.0-450.0); RED BLOOD COUNT 4.49 X10^6/uL (3.5-5.4); RED CELL DISTRIBUTION WIDTH 15.1 % (11.6-16.5); WHITE BLOOD COUNT 13.6 X10^3/uL (3.6-10.0)
[2019-03-20 02:31] LABS: BLOOD UREA NITROGEN 28 mg/dL (7-18); CALCIUM 8.7 mg/dL (8.5-10.1); CARBON DIOXIDE 22.5 mmol/L (21-32); CHLORIDE 103 mmol/L (98-107); CREATININE 1.97 mg/dL (0.55-1.02); SODIUM 138 mmol/L (136-145); eGFR NON BLACK RACES 27 (>60)
[2019-03-20] MEDS ORDERED: MORPHINE SULFATE INJ 2 MG INJ IVP PRN (04:01)
[2019-03-20 05:09] VITALS: BMI 40.2
[2019-03-20] MEDS ORDERED: NORCO 5/325 MG TAB ONE (05:11)
[2019-03-20] MEDS: NORCO 5/325 MG TAB PO PRN ×4 (05:18→22:55)
--- NOTE | 2019-03-20 07:48 | VAS ---
HISTORY: Right lower extremity edema Study: Right lower extremity venous Doppler Comparison: None Technique: Multiple grayscale sonographic images were obtained. Color duplex Doppler evaluation was performed. Findings: There is no evidence for deep venous thrombosis in the common femoral vein, greater saphenous junction, superficial femoral vein or popliteal veins. IMPRESSION: Exam negative for deep venous thrombosis in the right lower extremity Reported By:
--- NOTE | 2019-03-20 08:52 | DR.H&P ---
Addendum entered and electronically signed by JUAN RAMON BROWER 03/20/19 11:53: CORRECTION TO PRIOR ENTRY: PT IS 68 WHITE FEMALE Original Note: H&P - History & Physical for Day of: H&P Date: 03/20/19 - Chief Complaint Chief Complaint: right lower leg redness, pain, swelling - History of Present Illness History of Present Illness: 8 yo female who presents for right leg pain. Which has been present for abscess on leg for 4 days. She hit the leg on metal table which broke the skin. She has no pain in the knee but in the right lower leg from the knee down. She was seen by orthopedic doctor on 03/19/19 who did imaging of the knee and advised this was not intrarticular and superficial infection. She has had puss come out of the 7 lesion on her leg. She state the pain is achy, 10/10, her right leg, the pain is like burning/throbbing. She was at ED on 01/15/19 and given bactrim DS and then given keflex by orthopedic doctor. The pain and abscess are worsening. WBC 13.6 on admission. pt admitted for IV atbx therapy, wound and blood cultures. - Past Medical History Past Medical History: [place], Coronary Artery Disease, Hypertension, Dyslipidemia - Past Surgical History Surgical History: Angioplasty/Stents, Appendectomy, Cholecystectomy, SAMPLES AND REPAIRS PREPARER Surgery, Joint Replacement, Ortho Surgery - Family History Family Medical History: Cancer - Social History Does patient currently use any type of tobacco product: No Have you used tobacco products in the last 12 months: No Type of Tobacco Use: None How many years tobacco product used: 0 Does any household member use tobacco: No Alcohol Use: None Drug Use: None - Medications Home Medications: No Known Drug Allergies Allergy (Verified 11/17/18 14:16) - Review of Systems Constitutional: Fever, Weakness Eyes: No Symptoms Reported ENT: No Symptoms Reported Respiratory: No Symptoms Reported Cardiovascular: No Symptoms Reported, Edema Gastrointestinal: Nausea Genitourinary: No Symptoms Reported Musculoskeletal: Leg Pain Skin: No Symptoms Reported Neurological: No Symptoms Reported - Physical Exam Vital Signs: Temperature 97.8 F Pulse Rate [Brachial] 78 Pulse Rate 62 Respiratory Rate 14 Blood Pressure [Right Arm] 156/56 Blood Pressure 146/63 O2 Sat by Pulse Oximetry 100 Oriented: Normal Eyes: Normal Ear: Normal Nose: Normal Throat: Normal Respiratory: RLL Diminished, LLL Diminished Cardiovascular: Normal, Edema (rle, pace maker present) : Normal Auscultation: Bowel Sounds: Normal Palpation: Normal Tenderness: Normal Skin: Decreased [place], Red, Tender, Hot, Wound (rle) Musculoskeletal: Right, Leg, Swelling, Tender Psychiatric: Normal Affect: Anxious Speech Pattern: Clear, Appropriate - Assessment/Plan (1) Cellulitis and abscess of right leg Status: Acute Plan: ADMIT, BLOOD AND WOUND CULTURES ON ADMISSION. IV ATBX THERAPY, GENTLE IV HYDRATION. PAIN CONTROL, CXR ON ADMISSION. BP CONTROL, REPEAT AM LABS (2) Right knee pain Status: Acute (3) Hypertension Status: Acute - Allergies Allergies/Adverse Reactions: Allergies Allergy/AdvReac Type Severity Reaction Status Date / Time No Known Drug Allergies Allergy Verified 11/17/18 14:16
[2019-03-20] MEDS ORDERED: PHARMACY CONSULT - DOSE _____ XX SCH (09:00)
--- NOTE | 2019-03-20 09:23 | RAD ---
HISTORY: Injury, pain and swelling Study: Right knee three views Comparison: None Findings: The patient is status post total knee arthroplasty. Position and alignment is anatomic. No periprosthetic fracture or loosening is identified. The patella itself appears intact. There does appear to be some osteophyte formation projecting off the superior aspect of the patella within which there is a lucency suggestive of a fracture. IMPRESSION: Status post TKA in good position Large patellar osteophyte superiorly through which there is a lucency suspicious for a fracture. Clinical correlation as the presence or absence of point tenderness in this area should be helpful. Reported By:
--- NOTE | 2019-03-20 09:25 | RAD ---
History: Lower extremity edema Study: PA chest Comparison: February 09, 2017 Findings: The heart is mildly enlarged with intact pacemaker wire leads via the left subclavian vein. The lungs are grossly clear without edema or effusion or congestion. No significant bony abnormality is demonstrated. Impression: No evidence for acute cardiopulmonary disease Reported By:
[2019-03-20] MEDS: LOVENOX INJ 30 MG SYR SC SCH (10:17)
[2019-03-20] MEDS: ASPIRIN 81 MG CHEWTAB PO SCH (21:15)
[2019-03-20] MEDS: TRICOR TAB 160 MG PO SCH (21:16)
[2019-03-20] MEDS: LIPITOR TAB 40 MG PO SCH (21:16)
[2019-03-20] MEDS: ZESTRIL TAB 40 MG PO SCH (21:16)
[2019-03-20] MEDS: RESTORIL CAP 30 MG PO PRN (21:16)
[2019-03-20] MEDS ORDERED: VANCOMYCIN HCL 500 MG VIAL ONE (21:37)
[2019-03-20] MEDS: VANCOMYCIN HCL 500 MG VIAL 250 MG, VANCOMYCIN HCL 1 GM VIAL 1 G in D5W 250 ML IV 250 ML IV SCH (21:57)
[2019-03-21 06:37] LABS: BASOPHILS # (AUTO) 0.1 X10^3/uL (0.0-0.1); BASOPHILS % (AUTO) 0.9 % (0.2-1.0); EOSINOPHILS # (AUTO) 0.3 x10^3/uL (0.0-0.2); EOSINOPHILS % (AUTO) 3.1 % (0.9-2.9); HEMATOCRIT 36.1 % (36.0-47.0); HEMOGLOBIN 12.3 g/dL (12.0-16.0); LYMPHOCYTES # (AUTO) 3.3 X10^3/uL (1.3-2.9); LYMPHOCYTES % (AUTO) 38.4 % (21.0-51.0); MEAN CORPUSCULAR HEMOGLOBIN 31.2 pg (27.0-34.0); MEAN CORPUSCULAR HGB CONC 34.1 g/dL (33.0-35.0); MEAN CORPUSCULAR VOLUME 91.5 fL (80.0-100.0); MEAN PLATELET VOLUME 9.3 fL (7.4-11.0); MONOCYTES # (AUTO) 0.7 x10^3/uL (0.3-0.8); MONOCYTES % (AUTO) 7.7 % (0.0-13.0); NEUTROPHILS # (AUTO) 4.2 x10^3/uL (2.2-4.8); NEUTROPHILS % (AUTO) 49.9 % (42.0-75.0); PLATELET COUNT 182 X10^3/uL (150.0-450.0); RED BLOOD COUNT 3.95 X10^6/uL (3.5-5.4); RED CELL DISTRIBUTION WIDTH 14.3 % (11.6-16.5); WHITE BLOOD COUNT 8.5 X10^3/uL (3.6-10.0)
[2019-03-21 06:49] LABS: ALANINE AMINOTRANSFERASE 19 Units/L (12-78); ALBUMIN 2.4 g/dL (3.4-5.0); ALKALINE PHOSPHATASE 66 Units/L (46-116); ASPARTATE AMINO TRANSFERASE 18 Units/L (15-37); BLOOD UREA NITROGEN 17 mg/dL (7-18); CALCIUM 8.3 mg/dL (8.5-10.1); CARBON DIOXIDE 21.7 mmol/L (21-32); CHLORIDE 107 mmol/L (98-107); COR CA(FOR HYPOALB) 9.6 mg/dL (8.5-10.1); CREATININE 0.88 mg/dL (0.55-1.02); SODIUM 138 mmol/L (136-145); TOTAL PROTEIN 5.9 g/dL (6.4-8.2); eGFR NON BLACK RACES > 60 (>60)
[2019-03-21] MEDS: LOVENOX INJ 30 MG SYR SC SCH (08:17)
[2019-03-21 08:38] VITALS: BP 127/66
[2019-03-21] MEDS ORDERED: NORCO 5/325 MG TAB PO PRN (08:40)
[2019-03-21] MEDS ORDERED: DILAUDID INJ IVP PRN (08:49)
[2019-03-21] MEDS ORDERED: XYLOCAINE 1 % (PLAIN) ONE (10:45)
--- NOTE | 2019-03-21 13:45 | DR.UPDATE ---
H&P Update History and Physical Update: History and Physical reviewed and patient examined. Changes noted: NO Yes with the following:agree with H&P. Will place PICC for longterm abx Procedures (ALL) - Central Line Placement PCM.CLCO: written consent Time out performed: Yes Patient placed pm monitor/pulse ox: Yes prep: mask, gown, gloves, other Centrial line prep: chlorhexidine scrub Local anesthsia used: lidocane 1% Ultrasound used for placement: Yes Central line lumen ininserted: double (5Fr powerpicc. Left brachial id'd via ultrasound. catheter untrimmed. 0cm exposed.) Post procedure: good blood return, all ports aspirated, flushed,capped, sterile dressing applied Post procedure xray: tip oc catheter in good position, no pneumothorax seen Patient tolerated procedure: Yes Complications: none
--- NOTE | 2019-03-21 14:08 | RAD ---
Chest, one view Indication: PICC placement Comparison: 03/20/2019 Findings: There is stable enlargement of the cardiac silhouette without congestive failure. Left-sided pacemaker noted. No focal infiltrate or significant effusion is identified. Left-sided PICC terminates over the cavoatrial junction without pneumothorax. Remote fracture of the proximal right humerus noted. Impression: Satisfactory left-sided PICC placement without pneumothorax or additional acute chest process. Reported By:
--- NOTE | 2019-03-21 16:14 | CT ---
CT right knee without contrast Indication: Pain after fall. Comparison: 03/20/2019 Technique: Helical images through the right knee without contrast. Coronal and sagittal reformats provided. Findings: There is large suprapatellar osteophyte, within the quadriceps tendon. Quadriceps tendon is thickened suggesting tendinosis. These fragments appear generally corticated, with otherwise intact patellofemoral arthroplasty. Femoral and tibial components appear intact. Proximal tib-fib joint DJD noted. No large effusion or soft tissue abnormality seen. Mild prepatellar soft tissue and pretibial soft tissue swelling noted. Vascular plaques are noted. Femur, tibia and fibula show no fracture. Impression: 1. Large osteophytes in the distal quadriceps tendon at the superior pole of patella appear corticated, with probable tendinosis, but no convincing acute fracture. 2. Patellar component of the arthroplasty appears intact. 3. Femorotibial components are intact, with other findings as above. Reported By:
--- NOTE | 2019-03-21 18:07 | PCM.PROG ---
Progress Note - Progress Note for Day of Date of Exam: 03/21/19 - Subjective Subjective: 68 WF ADMITTED ON 03/20 WITH RLE CELLULITIS WITH CO RIGHT KNEE AND RIGHT LOWER LEG PAIN. PT WBC 13K ON ADMISSION IMPROVED THIS AM. PT IS CURRENTLY ON IV VANCOMYCIN. PT HAD KNEE XRAY ABNORMALITY, CT RIGHT KNEE ORDERED FOR THIS AM. PT CO SEVERE RLE PAIN WITH AMBULATION THIS AM. PT STATES MORPHINE DID NOT HELP HER LEG PAIN. PT WOUND CULTURE +STAPH. CONSULTED CASE MANAGEMENT FOR HOME HEALTH FOR IV ATBX INFUSIONS AND WOUND CARE AT HOME. MANAGER UROLOGY CONSULTED FOR PICC LINE PLACEMENT. - Past Medical Family Social History Past Med/Fam/Surg Hx: No changes since H&P Allergies: Allergies No Known Drug Allergies Allergy (Verified 11/17/18 14:16) - Review of Systems ROS: No change since H&P - Vital Signs and I&O's Vital Signs: Temperature 98.1 F Pulse Rate [Brachial] 78 Pulse Rate 60 Respiratory Rate 15 Blood Pressure [Right Arm] 156/56 Blood Pressure 127/66 O2 Sat by Pulse Oximetry 97 Intake and Output: Intake & Output 03/19/19 03/20/19 03/21/19 03/22/19 11:59 11:59 11:59 11:59 Intake Total 1000 / 1000 860 / 860 Balance 1000 / 1000 860 / 860 - Physical Exam Oriented: Normal Eyes: Normal Ear: Normal Nose: Normal Throat: Normal Respiratory: Normal Cardiovascular: Normal, Edema (rle, pace maker present) : Normal Auscultation: Bowel Sounds: Normal Tenderness: Normal Skin: Decreased Turgur, Red, Tender, Hot, Wound (rle) Musculoskeletal: Right, Leg, Swelling, Tender Psychiatric: Normal Mood Description: Calm Affect: Anxious Speech Pattern: Clear, Appropriate - Laboratory and Diagnostics Result Diagrams: 03/21/19 05:56 03/21/19 05:56 Labs: 03/20/19 01:42 Knee - Right Gram Stain - Final 03/20/19 01:42 Knee - Right Wound Culture - Preliminary Laboratory WBC 8.5 X10^3/uL (3.6-10.0) 03/21/19 05:56 RBC 3.95 X10^6/uL (3.5-5.4) 03/21/19 05:56 Hgb 12.3 g/dL (12.0-16.0) 03/21/19 05:56 Hct 36.1 % (36.0-47.0) 03/21/19 05:56 MCV 91.5 fL (80.0-100.0) 03/21/19 05:56 MCH 31.2 pg (27.0-34.0) 03/21/19 05:56 MCHC 34.1 g/dL (33.0-35.0) 03/21/19 05:56 RDW 14.3 % (11.6-16.5) 03/21/19 05:56 Plt Count 182 X10^3/uL (150.0-450.0) 03/21/19 05:56 MPV 9.3 fL (7.4-11.0) 03/21/19 05:56 Neut % (Auto) 49.9 % (42.0-75.0) 03/21/19 05:56 Lymph % (Auto) 38.4 % (21.0-51.0) 03/21/19 05:56 [place] % (Auto) 7.7 % (0.0-13.0) 03/21/19 05:56 Eos % (Auto) 3.1 % (0.9-2.9) H 03/21/19 05:56 Baso % (Auto) 0.9 % (0.2-1.0) 03/21/19 05:56 Neut # (Auto) 4.2 x10^3/uL (2.2-4.8) 03/21/19 05:56 Lymph # (Auto) 3.3 X10^3/uL (1.3-2.9) H 03/21/19 05:56 [place] # (Auto) 0.7 x10^3/uL (0.3-0.8) 03/21/19 05:56 Eos # (Auto) 0.3 x10^3/uL (0.0-0.2) H 03/21/19 05:56 Baso # (Auto) 0.1 X10^3/uL (0.0-0.1) 03/21/19 05:56 Absolute Nucleated RBC 0.0 /100WBC 03/21/19 05:56 ESR 37 MM/HOUR (0-20) H 03/21/19 05:56 Sodium 138 mmol/L (136-145) 03/21/19 05:56 Corrected Sodium TNP 03/21/19 05:56 Potassium 4.2 mmol/L (3.5-5.1) 03/21/19 05:56 Chloride 107 mmol/L (98-107) 03/21/19 05:56 Carbon Dioxide 21.7 mmol/L (21-32) 03/21/19 05:56 BUN 17 mg/dL (7-18) 03/21/19 05:56 Creatinine 0.88 mg/dL (0.55-1.02) 03/21/19 05:56 Est GFR (MDRD) Af Amer > 60 (>60) 03/21/19 05:56 Est GFR (MDRD) Non-Af > 60 (>60) 03/21/19 05:56 Glucose 104 mg/dL (65-99) H 03/21/19 05:56 Calcium 8.3 mg/dL (8.5-10.1) L 03/21/19 05:56 Corrected Calcium 9.6 mg/dL (8.5-10.1) 03/21/19 05:56 Total Bilirubin 0.30 mg/dL (0.2-1.0) 03/21/19 05:56 AST 18 Units/L (15-37) 03/21/19 05:56 ALT 19 Units/L (12-78) 03/21/19 05:56 Alkaline Phosphatase 66 Units/L (46-116) 03/21/19 05:56 C-Reactive Protein 39.70 mg/L (0-3.0) H 03/21/19 05:56 Total Protein 5.9 g/dL (6.4-8.2) L 03/21/19 05:56 Albumin 2.4 g/dL (3.4-5.0) L 03/21/19 05:56 Globulin 3.5 g/dL (2.5-4.5) 03/21/19 05:56 Albumin/Globulin Ratio 0.7 Ratio (1.1-2.1) L 03/21/19 05:56 - Plan (1) Cellulitis and abscess of right leg Status: Acute Plan: BLOOD AND WOUND CULTURES ON ADMISSION. IV ATBX THERAPY, GENTLE IV HYDRATION. PAIN CONTROL, CXR ON ADMISSION. BP CONTROL, REPEAT AM LABS. PICC LINE PLACEMENT, CASE MANAGEMENT CONSULT (2) Right knee pain Status: Acute (3) Hypertension Status: Acute
[2019-03-21] MEDS ORDERED: VANCOMYCIN HCL 500 MG VIAL ONE (20:10)
[2019-03-21] MEDS ORDERED: NS 250 ML IV 250 ML ONE (20:10)
[2019-03-21] MEDS ORDERED: VANCOMYCIN HCL 1 GM VIAL ONE (20:10)
[2019-03-21] MEDS: ASPIRIN 81 MG CHEWTAB PO SCH (20:35)
[2019-03-21] MEDS: ZESTRIL TAB 40 MG PO SCH (20:35)
[2019-03-21] MEDS: LIPITOR TAB 40 MG PO SCH (20:36)
[2019-03-21] MEDS: TRICOR TAB 160 MG PO SCH (20:36)
[2019-03-21] MEDS: VANCOMYCIN HCL 500 MG VIAL 250 MG, VANCOMYCIN HCL 1 GM VIAL 1 G in D5W 250 ML IV 250 ML IV SCH (21:15)
[2019-03-21] MEDS: RESTORIL CAP 30 MG PO PRN (21:49)
[2019-03-22 06:52] LABS: BASOPHILS # (AUTO) 0.1 X10^3/uL (0.0-0.1); BASOPHILS % (AUTO) 0.9 % (0.2-1.0); EOSINOPHILS # (AUTO) 0.2 x10^3/uL (0.0-0.2); EOSINOPHILS % (AUTO) 3.1 % (0.9-2.9); HEMATOCRIT 36.6 % (36.0-47.0); HEMOGLOBIN 12.3 g/dL (12.0-16.0); LYMPHOCYTES # (AUTO) 3.4 X10^3/uL (1.3-2.9); LYMPHOCYTES % (AUTO) 43.3 % (21.0-51.0); MEAN CORPUSCULAR HGB CONC 33.7 g/dL (33.0-35.0); MEAN PLATELET VOLUME 9.4 fL (7.4-11.0); MONOCYTES # (AUTO) 0.6 x10^3/uL (0.3-0.8); MONOCYTES % (AUTO) 7.3 % (0.0-13.0); NEUTROPHILS # (AUTO) 3.6 x10^3/uL (2.2-4.8); NEUTROPHILS % (AUTO) 45.4 % (42.0-75.0); PLATELET COUNT 193 X10^3/uL (150.0-450.0); RED BLOOD COUNT 3.98 X10^6/uL (3.5-5.4); RED CELL DISTRIBUTION WIDTH 14.6 % (11.6-16.5); WHITE BLOOD COUNT 7.8 X10^3/uL (3.6-10.0)
[2019-03-22 07:20] LABS: ALANINE AMINOTRANSFERASE 23 Units/L (12-78); ALBUMIN 2.4 g/dL (3.4-5.0); ALKALINE PHOSPHATASE 71 Units/L (46-116); ASPARTATE AMINO TRANSFERASE 20 Units/L (15-37); BLOOD UREA NITROGEN 18 mg/dL (7-18); CALCIUM 8.5 mg/dL (8.5-10.1); CHLORIDE 106 mmol/L (98-107); COR CA(FOR HYPOALB) 9.8 mg/dL (8.5-10.1); CREATININE 0.73 mg/dL (0.55-1.02); SODIUM 139 mmol/L (136-145); eGFR NON BLACK RACES > 60 (>60)
[2019-03-22] MEDS: LOVENOX INJ 30 MG SYR SC SCH (09:06)
[2019-03-22] MEDS ORDERED: VANCOMYCIN HCL 1 GM VIAL 1 G in D5W 250 ML IV 250 ML IV SCH (10:00)
[2019-03-22] MEDS ORDERED: PHARMACY COMMENT IV SCH (20:45)
== END 2019-03-22 11:55 | disposition home or self-care (01) | DRG 603 ==
LOC: ER 01:10 → ICU 03:56
PROVIDERS: ADMIT Internal Medicine; ATTEND Internal Medicine
DX: B95.7 Other staphylococcus as the cause of diseases classified elsewhere; R79.82 Elevated C-reactive protein (CRP); I87.2 Venous insufficiency (chronic) (peripheral); Z95.0 Presence of cardiac pacemaker; M19.90 Unspecified osteoarthritis, unspecified site; Z96.651 Presence of right artificial knee joint; M25.561 Pain in right knee; I10 Essential (primary) hypertension; R60.0 Localized edema; I25.10 Atherosclerotic heart disease of native coronary artery without angina pectoris; L02.415 Cutaneous abscess of right lower limb; E78.2 Mixed hyperlipidemia; L03.115 Cellulitis of right lower limb
CPT/HCPCS: 36415; 36569; 71010; 71045; 73564; 73700; 80048; 80053; 80202; 85025; 85652; 86140; 87040; 87070; 87075; 87077; 87186; 87205; 93971; 96365; 96367; 96374; 96375; 99284; A4216; A4222; J1170; J1650; J2270; J2405; J3370; J7030; J7050; J7060

== ENCOUNTER 2022-05-27 11:16 | Observation (INO) ==
[2022-05-27] MEDS ORDERED: TUSSIONEX PENNKINETIC SUSP PO PRN (13:58)
[2022-05-27] MEDS ORDERED: FORTAZ or TAZICEF VIAL INJ 1 G in NS 100 ML IV + SPIKE MINIBAG* 100 ML IV SCH (14:00)
[2022-05-27] MEDS ORDERED: SALINE 3% 15 ML NEB TX ONE (14:01)
[2022-05-27] MEDS ORDERED: DUONEB 0.5 MG/3 MG (3 mL) NEB ONE (14:01)
[2022-05-27] MEDS: DUONEB 0.5 MG/3 MG (3 mL) NEB SCH ×2 (14:05→21:47)
[2022-05-27] MEDS ORDERED: SALINE 3% 15 ML NEB TX NEB ONE (14:08)
[2022-05-27] MEDS: PULMICORT NEB TX 0.5 MG NEB SCH ×2 (14:13→21:47)
[2022-05-27] MEDS ORDERED: NS 1/2 1,000 ML IV 1,000 ML IV ONE (14:29)
[2022-05-27] MEDS: NS 1/2 1,000 ML IV 1,000 ML IV SCH (14:32)
[2022-05-27] MEDS: SOLU-Medrol 40 MG VIAL IVP SCH ×2 (14:32→22:01)
[2022-05-27] MEDS: ROBITUSSIN DM PO SCH ×3 (14:32→20:39)
[2022-05-27] MEDS: TAMIFLU PO SCH ×2 (14:32→20:40)
[2022-05-27] MEDS: LEVAQUIN PREMIX IV 500 MG 500 MG/100 ML BAG IV SCH (14:33)
[2022-05-27] MEDS: VSL#3 PO SCH (14:33)
[2022-05-27] MEDS: FORTAZ or TAZICEF VIAL INJ 1 G in NS 100 ML IV 100 ML IV SCH ×2 (14:33→22:01)
[2022-05-27 15:27] LABS: BASOPHILS % (AUTO) 0.2 % (0.2-1.0); HEMATOCRIT 41.9 % (36.0-47.0); HEMOGLOBIN 14.4 g/dL (12.0-16.0); LYMPHOCYTES # (AUTO) 1.5 X10^3/uL (1.3-2.9); LYMPHOCYTES % (AUTO) 10.9 % (21.0-51.0); MEAN CORPUSCULAR HEMOGLOBIN 31.6 pg (27.0-34.0); MEAN CORPUSCULAR HGB CONC 34.4 g/dL (33.0-35.0); MEAN CORPUSCULAR VOLUME 91.8 fL (80.0-100.0); MONOCYTES # (AUTO) 0.9 x10^3/uL (0.3-0.8); MONOCYTES % (AUTO) 6.4 % (0.0-13.0); NEUTROPHILS # (AUTO) 11.4 x10^3/uL (2.2-4.8); NEUTROPHILS % (AUTO) 82.5 % (42.0-75.0); RED BLOOD COUNT 4.57 X10^6/uL (3.5-5.4); RED CELL DISTRIBUTION WIDTH 14.3 % (11.6-16.5); WHITE BLOOD COUNT 13.8 X10^3/uL (3.6-10.0)
[2022-05-27 15:44] LABS: ALANINE AMINOTRANSFERASE 34 Units/L (12-78); ALBUMIN 2.8 g/dL (3.4-5.0); ALKALINE PHOSPHATASE 60 Units/L (46-116); ASPARTATE AMINO TRANSFERASE 50 Units/L (15-37); BLOOD UREA NITROGEN 42 mg/dL (7-18); CALCIUM 8.3 mg/dL (8.5-10.1); CARBON DIOXIDE 25.9 mmol/L (21-32); CHLORIDE 102 mmol/L (98-107); COR CA(FOR HYPOALB) 9.3 mg/dL (8.5-10.1); CREATININE 1.58 mg/dL (0.55-1.02); SODIUM 136 mmol/L (136-145); eGFR NON BLACK RACES 34 (>60)
[2022-05-27 16:11] LABS: PLATELET MORPHOLOGY COMMENT NORMAL (NORMAL)
--- NOTE | 2022-05-27 16:16 | RAD ---
HISTORYFLU A, SOB, BRONCHOPNEUMONIASTUDYCHEST, 1 VIEWCOMPARISONNoneFINDINGSThe lungs are clear. No pneumothorax or significant effusion.Heart size is normal.Bones are unremarkable. [Left subclavian ICD is present with leads in expected location. Fixation hardware is present in the cervical spine.]IMPRESSION1. No significant abnormalityElectronically signed by: Raulito Echeverria (May 27, 2022 16:15:00)
[2022-05-27] MEDS ORDERED: NORCO 5/325 MG TAB PO PRN (20:42)
[2022-05-27] MEDS: DESYREL PO SCH (21:59)
[2022-05-27] MEDS: LIPITOR TAB 40 MG PO SCH (21:59)
[2022-05-27] MEDS: ASPIRIN EC 81 MG PO SCH (22:00)
[2022-05-27] MEDS: TRICOR TAB 160 MG PO SCH (22:00)
[2022-05-28] MEDS ORDERED: NS 1/2 1,000 ML IV 1,000 ML IV ONE (04:59)
[2022-05-28] MEDS: SOLU-Medrol 40 MG VIAL IVP SCH ×3 (05:13→21:49)
[2022-05-28] MEDS: FORTAZ or TAZICEF VIAL INJ 1 G in NS 100 ML IV 100 ML IV SCH ×3 (05:14→21:49)
[2022-05-28 06:34] LABS: BASOPHILS % (AUTO) 0.1 % (0.2-1.0); EOSINOPHILS % (AUTO) 0.1 % (0.9-2.9); HEMATOCRIT 39.2 % (36.0-47.0); HEMOGLOBIN 13.7 g/dL (12.0-16.0); LYMPHOCYTES # (AUTO) 1.4 X10^3/uL (1.3-2.9); LYMPHOCYTES % (AUTO) 12.7 % (21.0-51.0); MEAN CORPUSCULAR HEMOGLOBIN 32.1 pg (27.0-34.0); MEAN CORPUSCULAR HGB CONC 34.9 g/dL (33.0-35.0); MEAN PLATELET VOLUME 10.3 fL (7.4-11.0); MONOCYTES # (AUTO) 0.4 x10^3/uL (0.3-0.8); MONOCYTES % (AUTO) 3.6 % (0.0-13.0); NEUTROPHILS # (AUTO) 9.1 x10^3/uL (2.2-4.8); NEUTROPHILS % (AUTO) 83.5 % (42.0-75.0); RED BLOOD COUNT 4.26 X10^6/uL (3.5-5.4); RED CELL DISTRIBUTION WIDTH 14.3 % (11.6-16.5)
--- NOTE | 2022-05-28 06:53 | RAD ---
CHEST, 1 VIEWHISTORY: SOBStudy: Single view of the chest.Comparison:May 27, 2022Findings:The cardiomediastinal silhouette is normal.No focal consolidations, pleural effusions or pneumothorax. Osseous structures demonstrate no acute abnormality.IMPRESSION:1. No acute cardiopulmonary process.Electronically signed by: MARILYN AMAYA (May 28, 2022 06:51:04)
[2022-05-28 06:54] LABS: ALANINE AMINOTRANSFERASE 29 Units/L (12-78); ALBUMIN 2.4 g/dL (3.4-5.0); ALKALINE PHOSPHATASE 55 Units/L (46-116); ASPARTATE AMINO TRANSFERASE 44 Units/L (15-37); BLOOD UREA NITROGEN 32 mg/dL (7-18); CALCIUM 7.9 mg/dL (8.5-10.1); CARBON DIOXIDE 25.6 mmol/L (21-32); CHLORIDE 104 mmol/L (98-107); COR CA(FOR HYPOALB) 9.2 mg/dL (8.5-10.1); COR NA(FOR HYPERGLY) 139 mmol/L (136-145); CREATININE 1.02 mg/dL (0.55-1.02); SODIUM 138 mmol/L (136-145); TOTAL PROTEIN 5.4 g/dL (6.4-8.2); eGFR NON BLACK RACES 57 (>60)
[2022-05-28] MEDS: NS 1/2 1,000 ML IV 1,000 ML IV SCH ×2 (07:55→17:36)
[2022-05-28] MEDS: DUONEB 0.5 MG/3 MG (3 mL) NEB SCH ×4 (08:03→20:25)
[2022-05-28] MEDS: PULMICORT NEB TX 0.5 MG NEB SCH ×2 (08:03→20:25)
[2022-05-28] MEDS ORDERED: NORCO 5/325 MG TAB PO PRN (08:08)
[2022-05-28] MEDS: LEVAQUIN PREMIX IV 500 MG 500 MG/100 ML BAG IV SCH (08:17)
[2022-05-28] MEDS: ZESTRIL TAB 40 MG PO SCH (08:17)
[2022-05-28] MEDS: TAMIFLU PO SCH ×2 (08:17→20:45)
[2022-05-28] MEDS: ROBITUSSIN DM PO SCH ×4 (08:17→20:43)
[2022-05-28] MEDS: VSL#3 PO SCH (08:18)
[2022-05-28] MEDS ORDERED: SOLU-Medrol 40 MG VIAL IVP SCH (10:00)
--- NOTE | 2022-05-28 10:50 | DR.H&P ---
H&P - History & Physical for Day of: H&P Date: 05/27/22 - Chief Complaint Chief Complaint: FEVER, COUGH, CONGESTION, SHORTNESS OF BREATH, WEAKNESS, AND BODY ACHES, FLU A + - History of Present Illness History of Present Illness: IS A 71 YEAR OLD PATIENT OF [employer]. SHE PRESENTED TO THE HOSPITAL FOR A DIRECT ADMISSION FOR TREATMENT OF INFLUENZA A AND ACUTE BRONCHITIS. PATIENT HAS APPARENTLY HAD SYMPTOMS OF FEVER, COUGH, CONGESTION, SHORTNESS OF BREATH, WEAKNESS, AND BODY ACHES SINCE THE BEGINNING OF THE WEEK. SHE HAS BEEN TAKING TAMIFLU, TUSSIONEX, A MEDROL DOSEPACK, AND LEVAQUIN 500MG DAILY SINCE 05/24/22. SHE DENIES IMPROVEMENT IN SYMPTOMS DESPITE COMPLIANCE WITH MEDICATIONS. HER PMH INCLUDES: CAD, ME, HTN, PACEMAKER, CARDIAC STENTS, OSTEOARTHRITIS, APPENDECTOMY, TONSILLECTOMY, RIGHT KNEE REPLACEMENT, CHOLECYSTECTOMY, CERVICAL FUSION, AND TUBAL. ON ARRIVAL TO THE HOSPITAL, VITALS WERE: 98.7-73-20-93%-137/58. SHE WAS PLACED ON OXYGEN VIA NASAL CANNULA AT 2 LPM. LABS WERE OBTAINED. WBC 13.8, RBC 4.57, HGB 14.4, HCT 41.9, PLT COUNT 147, SODIUM 136, POTASSIUM 4.3, CHLORIDE 102, BUN 42, CREATININE 1.58, GLUCOSE 96, CALCIUM 8.3, AST 50, ALT 34, ALK PHOS 60, TOTAL PROTEIN 6.0, ALBUMIN 2.8. RESPIRATORY VIRAL PANEL WAS SET UP. BLOOD CULTURES WERE SET UP. A CHEST XRAY WAS OBTAINED AND REVEALED: The lungs are clear. No pneumothorax or significant effusion. Heart size is normal. Bones are unremarkable. Left subclavian ICD is present with leads in expected location. Fixation hardware is present in the cervical spine. SHE WAS STARTED ON 1/2NS AT 75 ML/HR, LEVAQUIN 500MG IV DAILY, FORTAZ 1G IV Q8H, DUONEBS QID, PULMICORT NEBS BID, TAMIFLU 75MG PO BID, SOLU- MEDROL 20MG IV Q12H, TUSSIONEX 5ML PO Q12H PRN, ROBITUSSIN DM 10ML PO QID, AND HER HOME MEDICATIONS WERE RESUMED. OTHERWISE, WE PLAN TO FOLLOW-UP WITH AM LABS CONTINUE TO MONITOR. TIME SPENT ON CLINICAL ASSESSMENT, REVIWING LABS AND IMAGING, DECISION MAKING, AND DOCUMENTATION GREATER THAN 75 MINUTES. - Past Medical History Past Medical History: ME, Coronary Artery Disease, Hypertension, Dyslipidemia - Past Surgical History Surgical History: Appendectomy, Tonsillectomy - Family History Family Medical History: Cancer, ME, Sudden Cardiac , Hypertension - Social History Does patient currently use any type of tobacco product: No Have you used tobacco products in the last 12 months: No Type of Tobacco Use: None Alcohol Use: None - Medications Home Medications: duloxetine [From Cymbalta] Adverse Reaction (Verified 05/27/22 14:18) CONTINUE taking the following medications atorvastatin 40 mg tablet (Lipitor) 80 mg PO HS 05/27/22 [History] trazodone 50 mg tablet 50 mg PO HS 05/27/22 [History] - Review of Systems Constitutional: Fever, Chills, Weakness Eyes: No Symptoms Reported ENT: No Symptoms Reported Respiratory: Cough, Shortness of Breath, SOB with Excertion, Wheezing Cardiovascular: No Symptoms Reported Gastrointestinal: No Symptoms Reported Genitourinary: No Symptoms Reported Musculoskeletal: No Symptoms Reported Skin: No Symptoms Reported Neurological: Weakness - Physical Exam Vital Signs: Temperature 97.9 F Pulse Rate [Left Radial] 61 Pulse Rate 67 Respiratory Rate 20 Blood Pressure [Right Arm] 150/67 Blood Pressure 137/58 O2 Sat by Pulse Oximetry 98 Oriented: Normal Eyes: Normal Ear: Normal Nose: Normal Throat: Normal Respiratory: Diminished Throughout, Wheezes Throughout Cardiovascular: Normal : Normal Auscultation: Bowel Sounds: Normal Palpation: Normal Tenderness: Normal Skin: Normal Musculoskeletal: Normal Psychiatric: Normal Mood Description: Calm Affect: Normal Speech Pattern: Clear - Assessment/Plan (1) Acute bronchitis Qualifiers: Bronchitis organism: unspecified organism Qualified Code(s): J20.9 - Acute bronchitis, unspecified Status: Acute Plan: ADMIT, SUPPLEMENTAL OXYGEN, 1/2NS AT 75 ML/HR, LEVAQUIN 500MG IV DAILY, FORTAZ 1G IV Q8H, DUONEBS QID, PULMICORT NEBS BID, TAMIFLU 75MG PO BID, SOLU- MEDROL 20MG IV Q12H, TUSSIONEX 5ML PO Q12H PRN, ROBITUSSIN DM 10ML PO QID, AND HER HOME MEDICATIONS WERE RESUMED. (2) Influenza A Status: Acute (3) CAD (coronary artery disease) Qualifiers: Coronary Disease-Associated Artery/Lesion type: [place] artery [place] vs. transplanted heart: [place] heart Associated angina: unspecified whether angina present Qualified Code(s): I25.10 - Atherosclerotic heart disease of [place] coronary artery without angina pectoris Status: Chronic (4) Hypertension Qualifiers: Hypertension type: primary hypertension Qualified Code(s): I10 - Essential (primary) hypertension Status: Chronic - Allergies Allergies/Adverse Reactions: Allergies Allergy/AdvReac Type Severity Reaction Status Date / Time duloxetine [From Cymbalta] AdvReac Verified 05/27/22 14:18
[2022-05-28] MEDS: LIPITOR TAB 40 MG PO SCH (20:44)
[2022-05-28] MEDS: ASPIRIN EC 81 MG PO SCH (20:44)
[2022-05-28] MEDS: DESYREL PO SCH (20:44)
[2022-05-28] MEDS: TRICOR TAB 160 MG PO SCH (20:46)
[2022-05-28 22:54] VITALS: BP 184/81
[2022-05-29] MEDS ORDERED: NS 1/2 1,000 ML IV 1,000 ML IV ONE ×2 (01:16→17:25)
[2022-05-29] MEDS: NS 1/2 1,000 ML IV 1,000 ML IV SCH ×4 (03:50→21:21)
[2022-05-29] MEDS: SOLU-Medrol 40 MG VIAL IVP SCH ×3 (05:36→21:21)
[2022-05-29] MEDS: FORTAZ or TAZICEF VIAL INJ 1 G in NS 100 ML IV 100 ML IV SCH ×3 (05:36→21:20)
[2022-05-29 06:17] LABS: BASOPHILS % (AUTO) 0.2 % (0.2-1.0); HEMATOCRIT 39.7 % (36.0-47.0); HEMOGLOBIN 13.5 g/dL (12.0-16.0); LYMPHOCYTES # (AUTO) 1.3 X10^3/uL (1.3-2.9); LYMPHOCYTES % (AUTO) 11.7 % (21.0-51.0); MEAN CORPUSCULAR HEMOGLOBIN 31.2 pg (27.0-34.0); MEAN CORPUSCULAR HGB CONC 33.9 g/dL (33.0-35.0); MEAN PLATELET VOLUME 10.4 fL (7.4-11.0); MONOCYTES # (AUTO) 0.6 x10^3/uL (0.3-0.8); MONOCYTES % (AUTO) 5.5 % (0.0-13.0); NEUTROPHILS # (AUTO) 9.1 x10^3/uL (2.2-4.8); NEUTROPHILS % (AUTO) 82.6 % (42.0-75.0); RED BLOOD COUNT 4.31 X10^6/uL (3.5-5.4)
[2022-05-29 06:34] LABS: ALANINE AMINOTRANSFERASE 31 Units/L (12-78); ALBUMIN 2.3 g/dL (3.4-5.0); ALKALINE PHOSPHATASE 66 Units/L (46-116); ASPARTATE AMINO TRANSFERASE 37 Units/L (15-37); BLOOD UREA NITROGEN 31 mg/dL (7-18); CALCIUM 7.9 mg/dL (8.5-10.1); CARBON DIOXIDE 25.2 mmol/L (21-32); CHLORIDE 106 mmol/L (98-107); COR CA(FOR HYPOALB) 9.3 mg/dL (8.5-10.1); COR NA(FOR HYPERGLY) 141 mmol/L (136-145); CREATININE 0.89 mg/dL (0.55-1.02); SODIUM 139 mmol/L (136-145); TOTAL PROTEIN 5.1 g/dL (6.4-8.2); eGFR NON BLACK RACES > 60 (>60)
[2022-05-29] MEDS: DUONEB 0.5 MG/3 MG (3 mL) NEB SCH ×4 (08:06→21:00)
[2022-05-29] MEDS: PULMICORT NEB TX 0.5 MG NEB SCH ×2 (08:06→21:00)
--- NOTE | 2022-05-29 08:07 | RAD ---
CHEST, 1 VIEWHISTORY: SOBStudy: Single view of the chest.Comparison:May 28, 2022Findings:The cardiomediastinal silhouette is normal.No focal consolidations, pleural effusions or pneumothorax. Osseous structures demonstrate no acute abnormality. No change from prior.IMPRESSION:1. No acute cardiopulmonary process.Electronically signed by: MARILYN AMAYA (May 29, 2022 08:05:05)
[2022-05-29] MEDS: LEVAQUIN PREMIX IV 500 MG 500 MG/100 ML BAG IV SCH (08:53)
[2022-05-29] MEDS: VSL#3 PO SCH (08:54)
[2022-05-29] MEDS: ZESTRIL TAB 40 MG PO SCH (08:54)
[2022-05-29] MEDS: ROBITUSSIN DM PO SCH ×4 (08:54→21:19)
[2022-05-29] MEDS: TAMIFLU PO SCH ×2 (08:54→21:18)
[2022-05-29] MEDS: ASPIRIN EC 81 MG PO SCH (21:18)
[2022-05-29] MEDS: DESYREL PO SCH (21:19)
[2022-05-29] MEDS: LIPITOR TAB 40 MG PO SCH (21:20)
[2022-05-29] MEDS: TRICOR TAB 160 MG PO SCH (21:20)
[2022-05-30] MEDS: SOLU-Medrol 40 MG VIAL IVP SCH (05:15)
[2022-05-30] MEDS: FORTAZ or TAZICEF VIAL INJ 1 G in NS 100 ML IV 100 ML IV SCH (05:15)
[2022-05-30] MEDS ORDERED: NS 1/2 1,000 ML IV 1,000 ML IV ONE (05:22)
[2022-05-30] MEDS: NS 1/2 1,000 ML IV 1,000 ML IV SCH (05:51)
[2022-05-30 06:30] LABS: BASOPHILS % (AUTO) 0.3 % (0.2-1.0); HEMATOCRIT 40.6 % (36.0-47.0); HEMOGLOBIN 13.9 g/dL (12.0-16.0); LYMPHOCYTES # (AUTO) 1.7 X10^3/uL (1.3-2.9); LYMPHOCYTES % (AUTO) 15.1 % (21.0-51.0); MEAN CORPUSCULAR HEMOGLOBIN 31.6 pg (27.0-34.0); MEAN CORPUSCULAR HGB CONC 34.3 g/dL (33.0-35.0); MEAN CORPUSCULAR VOLUME 92.3 fL (80.0-100.0); MEAN PLATELET VOLUME 10.5 fL (7.4-11.0); MONOCYTES # (AUTO) 0.7 x10^3/uL (0.3-0.8); MONOCYTES % (AUTO) 6.5 % (0.0-13.0); NEUTROPHILS # (AUTO) 8.6 x10^3/uL (2.2-4.8); NEUTROPHILS % (AUTO) 78.1 % (42.0-75.0); RED CELL DISTRIBUTION WIDTH 14.4 % (11.6-16.5)
[2022-05-30 06:43] LABS: ALANINE AMINOTRANSFERASE 33 Units/L (12-78); ALBUMIN 2.4 g/dL (3.4-5.0); ALKALINE PHOSPHATASE 62 Units/L (46-116); ASPARTATE AMINO TRANSFERASE 34 Units/L (15-37); BLOOD UREA NITROGEN 29 mg/dL (7-18); CALCIUM 7.9 mg/dL (8.5-10.1); CARBON DIOXIDE 28.5 mmol/L (21-32); CHLORIDE 106 mmol/L (98-107); COR CA(FOR HYPOALB) 9.2 mg/dL (8.5-10.1); COR NA(FOR HYPERGLY) 140 mmol/L (136-145); SODIUM 139 mmol/L (136-145); TOTAL PROTEIN 5.3 g/dL (6.4-8.2); eGFR NON BLACK RACES > 60 (>60)
--- NOTE | 2022-05-30 07:15 | RAD ---
HISTORYSOBSTUDYPortable AP [id number] cardiomegaly with pacemaker. The lungs remain clear of consolidation. Mild vascular prominence may be related to nonstandard technical factors. There is no evidence for pneumonia, pulmonary edema or pleural effusion.IMPRESSIONNo acute pulmonary or pleural lesion demonstrated.Electronically signed by: BRET ZAMARRIPA (May 30, 2022 07:14:51)
[2022-05-30] MEDS: DUONEB 0.5 MG/3 MG (3 mL) NEB SCH (08:06)
[2022-05-30] MEDS: PULMICORT NEB TX 0.5 MG NEB SCH (08:06)
[2022-05-30] MEDS: LEVAQUIN PREMIX IV 500 MG 500 MG/100 ML BAG IV SCH (08:23)
[2022-05-30] MEDS: ROBITUSSIN DM PO SCH (08:23)
[2022-05-30] MEDS: TAMIFLU PO SCH (08:24)
[2022-05-30] MEDS: ZESTRIL TAB 40 MG PO SCH (08:24)
[2022-05-30] MEDS: VSL#3 PO SCH (08:28)
== END 2022-05-30 10:15 | disposition home or self-care (01) ==
LOC: MED/SURG
PROVIDERS: ADMIT Internal Medicine; ATTEND Internal Medicine
DX: M19.90 Unspecified osteoarthritis, unspecified site; R94.4 Abnormal results of kidney function studies; Z20.822 Contact with and (suspected) exposure to COVID-19; I10 Essential (primary) hypertension; R53.1 Weakness; J10.1 Influenza due to other identified influenza virus with other respiratory manifestations; Z95.0 Presence of cardiac pacemaker; R06.02 Shortness of breath; J20.8 Acute bronchitis due to other specified organisms; I25.10 Atherosclerotic heart disease of native coronary artery without angina pectoris

== ENCOUNTER 2024-07-16 11:56 | Observation (INO) ==
[2024-07-16 13:07] LABS: BASOPHILS # (AUTO) 0.1 X10^3/uL (0.0-0.1); BASOPHILS % (AUTO) 1.3 % (0.2-1.0); EOSINOPHILS # (AUTO) 0.4 x10^3/uL (0.0-0.2); EOSINOPHILS % (AUTO) 4.6 % (0.9-2.9); HEMATOCRIT 40.3 % (36.0-47.0); HEMOGLOBIN 13.6 g/dL (12.0-16.0); LYMPHOCYTES # (AUTO) 3.4 X10^3/uL (1.3-2.9); LYMPHOCYTES % (AUTO) 44.3 % (21.0-51.0); MEAN CORPUSCULAR HEMOGLOBIN 31.7 pg (27.0-34.0); MEAN CORPUSCULAR HGB CONC 33.7 g/dL (33.0-35.0); MEAN PLATELET VOLUME 9.7 fL (7.4-11.0); MONOCYTES # (AUTO) 0.7 x10^3/uL (0.3-0.8); MONOCYTES % (AUTO) 8.5 % (0.0-13.0); NEUTROPHILS # (AUTO) 3.2 x10^3/uL (2.2-4.8); NEUTROPHILS % (AUTO) 41.3 % (42.0-75.0); PLATELET COUNT 239 X10^3/uL (150.0-450.0); RED BLOOD COUNT 4.28 X10^6/uL (3.5-5.4); RED CELL DISTRIBUTION WIDTH 14.6 % (11.6-16.5); WHITE BLOOD COUNT 7.8 X10^3/uL (3.6-10.0)
[2024-07-16] MEDS: NS 1,000 ML IV 1,000 ML IV ONE (13:08)
[2024-07-16] MEDS: MAGNESIUM SULFATE 1 GRAM/100 mL PREMIX 1 G/100 ML BAG IV ONE (13:08)
[2024-07-16 13:16] LABS: ALANINE AMINOTRANSFERASE 40 Units/L (12-78); ALBUMIN 2.6 g/dL (3.4-5.0); ALKALINE PHOSPHATASE 73 Units/L (46-116); ASPARTATE AMINO TRANSFERASE 40 Units/L (15-37); BLOOD UREA NITROGEN 7 mg/dL (7-18); CALCIUM 9.5 mg/dL (8.5-10.1); CARBON DIOXIDE 27.1 mmol/L (21-32); CHLORIDE 106 mmol/L (98-107); COR CA(FOR HYPOALB) 10.6 mg/dL (8.5-10.1); COR NA(FOR HYPERGLY) 143 mmol/L (136-145); CREATININE 1.13 mg/dL (0.55-1.02); GLUCOSE 112 mg/dL (65-99); MAGNESIUM 1.3 mg/dL (2.0-2.9); SODIUM 143 mmol/L (136-145); TOTAL PROTEIN 5.9 g/dL (6.4-8.2); eGFR NON BLACK RACES 50 (>60)
[2024-07-16] MEDS: K-DUR TAB 20 MEQ PO ONE (14:05)
--- NOTE | 2024-07-16 15:15 | DR.DIZZY ---
HPI Time seen Time Seen by Provider: 07/16/24 12:41 PCP Primary Care Physician: sanjuana brady HPI Comment HPI Comment: Patient had recent total knee replacement of the left knee and since then has been weak and having difficulty ambulating. Has not been eating or drinking well enough. Has had several skin tears along the surgical site. Patient's family concerned due to her deconditioning. No focal signs or symptoms Complaint Chief Complaint:: feeling like going to faint, worse when standing. pt had total knee replacement end of may. during recovery has had decreased oral intake of food and fluids. she had been on restrictions of mobility due to severe skin tears around the surgical site to the left knee. in the last 2 weeks has been up more working with pt and ambulating 5-6 steps. on monday had episode of fainting when standing with spouse at home. he reports that she went limp and eyes rolled into her head. Self Treatment fo Chief Complaint: has not been taking in oral substance because she just doesnt want anything. noted dry mucous membranes and lips. when standing on the scales she was noted to become weaker and had to sit back into the wheelchair. COVID-19 Coronavirus risk:travel/contact w/high risk person: No Has patient experienced Coronavirus symptoms: No Source History Provided: Patient and Family Member Mode of Arrival Mode of Arrival: Wheelchair Timing Onset of Chief Complaint: 07/14/24 Symptom Onset: Unknown Location of Weakness Weakness Location: Generalized Context History of: ID Stroke Symptoms: None Associated signs and symptoms Associated Signs and Symptoms: Faintness and Weak PMH PMH Past Medical History: Yes Past Medical History: Hypertension and ID Past Medical History Comment: sick sinus Past Surgical History: Yes Surgical History: Appendectomy, Cholecystectomy, Joint Replacement, Ortho Surgery and Tonsillectomy Family History History of Family Medical Conditions: Yes Family Medical History: Cancer, ID, Coronary Artery Disease and Hypertension Social History Type of Tobacco Use: Cigarettes Does any household member use tobacco: No Alcohol Use: None Do you use any recreational Drugs:: No Lives With: Spouse Lives Where: Home Travel Risk Coronavirus risk:travel/contact w/high risk person: No Has patient experienced Coronavirus symptoms: No Infectious screening In the last 2 months have you had wt loss of >10#?: NO Have you had fever, night sweats or hemotysis?: No Have you traveled outside the country in the last 6 months?: No Isolation: Standard ROS Review of Systems Constitutional: See HPI Eyes: No Symptoms Reported ENTM: No Symptoms Reported Respiratoy: No Symptoms Reported Cardiovascular: No Symptoms Reported Gastrointestinal/Abdominal: No Symptoms Reported Genitourinary: No Symptoms Reported Neurological: No Symptoms Reported Musculoskeletal: See HPI Integumentary: See HPI Hematologic/Lymphatic: No Symptoms Reported Endocrine: No Symptoms Reported Psychiatric: No Symptoms Reported All Other Systems: Reviewed and Negative PE Vital Signs Vitals: Vital Signs Temperature 97.7 F Pulse Rate 61 Pulse Rate 60 Pulse Rate 60 Pulse Rate 60 Pulse Rate 60 Pulse Rate 60 Pulse Rate 60 Respiratory Rate 23 Respiratory Rate 23 Respiratory Rate 24 Respiratory Rate 27 Respiratory Rate 31 Respiratory Rate 12 Respiratory Rate 15 Blood Pressure 130/60 Blood Pressure 111/59 Blood Pressure 80/53 O2 Sat by Pulse Oximetry 100 O2 Sat by Pulse Oximetry 98 O2 Sat by Pulse Oximetry 100 O2 Sat by Pulse Oximetry 99 O2 Sat by Pulse Oximetry 99 O2 Sat by Pulse Oximetry 100 General Limitations: No Limitations General Appearance: Alert and In No Apparent Distress Head Head Exam: Normal Inspection Eyes Eye exam: Normal Appearance ENT ENT Exam: Normal Exam, Normal Oropharynx and Normal External Ear Exam Neck Neck Exam: Normal Inspection and Full ROM Chest Chest Inspection: Normal Inspection Respiratory Respiratory Exam: Normal Lung Sounds Bilat Cardiovascular Cardiovascular Exam: Regular Rate and Normal Rhythm Abdominal Exam Abdominal Exam: Normal Inspection, Normal Bowel Sounds and Soft Rectal Rectal Exam: Deferred Extremeties Extremities Exam: Other (Left knee surgical site clean dry and intact. No sign of infection. Healing well and patricia ready to be removed.) Back Back Exam: Normal Inspection and Full ROM Neurologic Neurological Exam: Alert and Oriented X3 Psychiatric Psychiatric Exam: Normal Affect and Normal Mood Skin Skin Exam: Warm, Dry, Intact and Normal Color Other Exam Other Exam: Patient is weak globally with no focal signs. COURSE Consultation Called: 15:26 Consultation Comments: Case presented to Dr. Sharma and he is agreeable for admission. Due to patient's deconditioning and failure to thrive as well need for more hydration she will be placed in the hospital as a knobs and will investigate possible placement. [facility] Labs Reviewed 07/16/24 12:55 07/16/24 12:55 Laboratory: WBC 7.8 X10^3/uL (3.6-10.0) 07/16/24 12:55 RBC 4.28 X10^6/uL (3.5-5.4) 07/16/24 12:55 Hgb 13.6 g/dL (12.0-16.0) 07/16/24 12:55 Hct 40.3 % (36.0-47.0) 07/16/24 12:55 MCV 94.0 fL (80.0-100.0) 07/16/24 12:55 MCH 31.7 pg (27.0-34.0) 07/16/24 12:55 MCHC 33.7 g/dL (33.0-35.0) 07/16/24 12:55 RDW 14.6 % (11.6-16.5) 07/16/24 12:55 Plt Count 239 X10^3/uL (150.0-450.0) 07/16/24 12:55 MPV 9.7 fL (7.4-11.0) 07/16/24 12:55 Neut % (Auto) 41.3 % (42.0-75.0) L 07/16/24 12:55 Lymph % (Auto) 44.3 % (21.0-51.0) 07/16/24 12:55 [place] % (Auto) 8.5 % (0.0-13.0) 07/16/24 12:55 Eos % (Auto) 4.6 % (0.9-2.9) H 07/16/24 12:55 Baso % (Auto) 1.3 % (0.2-1.0) H 07/16/24 12:55 Neut # (Auto) 3.2 x10^3/uL (2.2-4.8) 07/16/24 12:55 Lymph # (Auto) 3.4 X10^3/uL (1.3-2.9) H 07/16/24 12:55 [place] # (Auto) 0.7 x10^3/uL (0.3-0.8) 07/16/24 12:55 Eos # (Auto) 0.4 x10^3/uL (0.0-0.2) H 07/16/24 12:55 Baso # (Auto) 0.1 X10^3/uL (0.0-0.1) 07/16/24 12:55 Absolute Nucleated RBC 0.1 /100WBC 07/16/24 12:55 Sodium 143 mmol/L (136-145) 07/16/24 12:55 Corrected Sodium 143 mmol/L (136-145) 07/16/24 12:55 Potassium 3.0 mmol/L (3.5-5.1) L 07/16/24 12:55 Chloride 106 mmol/L (98-107) 07/16/24 12:55 Carbon Dioxide 27.1 mmol/L (21-32) 07/16/24 12:55 BUN 7 mg/dL (7-18) 07/16/24 12:55 Creatinine 1.13 mg/dL (0.55-1.02) H 07/16/24 12:55 Est GFR (MDRD) Af Amer > 60 (>60) 07/16/24 12:55 Est GFR (MDRD) Non-Af 50 (>60) L 07/16/24 12:55 Glucose 112 mg/dL (65-99) H 07/16/24 12:55 Calcium 9.5 mg/dL (8.5-10.1) 07/16/24 12:55 Corrected Calcium 10.6 mg/dL (8.5-10.1) H 07/16/24 12:55 Magnesium 1.3 mg/dL (2.0-2.9) L 07/16/24 12:55 Total Bilirubin 0.30 mg/dL (0.2-1.0) 07/16/24 12:55 AST 40 Units/L (15-37) H 07/16/24 12:55 ALT 40 Units/L (12-78) 07/16/24 12:55 Alkaline Phosphatase 73 Units/L (46-116) 07/16/24 12:55 Total Protein 5.9 g/dL (6.4-8.2) L 07/16/24 12:55 Albumin 2.6 g/dL (3.4-5.0) L 07/16/24 12:55 Globulin 3.3 g/dL (2.5-4.5) 07/16/24 12:55 Albumin/Globulin Ratio 0.8 Ratio (1.1-2.1) L 07/16/24 12:55 Opioid Opioid Risk Tool Age (Gian box if 16-45): No History of Preadolescent Sexual Abuse: No Total: 0 Total Score Risk Category: Low Risk Copyright: Marko PARKS predicting aberrant behaviors Discharge Plan Diagnosis Discharge Problem: Physical deconditioning, Dehydration, Hypomagnesemia, Acute hypokalemia, Adult failure to thrive Discharge Plan Patient Disposition: 09 ADMITTED INPATIENT Condition: Stable Orders to Discharge Patient Discharge Orders: Transfer (Routine); Ordered 07/16/24 Ordered By: Robert Jimenez
[2024-07-16] MEDS ORDERED: CONSULT PHARMACY - POTASSIUM & MAGNESIUM XX SCH (16:26)
[2024-07-16] MEDS: NS 1,000 ML IV 1,000 ML IV SCH (17:51)
[2024-07-16 17:56] LABS: BILIRUBIN,URINE 1+ (NEGATIVE); BLOOD/HEMOGLOBIN,URINE NEGATIVE (NEGATIVE); GLUCOSE, URINE NEGATIVE (NEGATIVE); KETONES,URINE 1+ (NEGATIVE); LEUKOCYTE ESTERASE ,URINE 1+ (NEGATIVE); NITRITES,URINE NEGATIVE (NEGATIVE); PROTEIN,URINE 2+ (NEGATIVE); UROBILINOGEN,URINE 1+ (NORMAL)
[2024-07-16 18:02] LABS: APPEARANCE,URINE SLIGHTLY HAZY (CLEAR); COLOR,URINE DARK YELLOW (YELLOW)
[2024-07-16 18:14] LABS: RBC,URINE 0-2 /HPF (0-3)
[2024-07-16 18:15] LABS: BACTERIA,URINE 2+ /HPF (NEGATIVE); CALCIUM OXALATE CRYSTALS,UR MANY /HPF (NEGATIVE); SQUAMOUS EPITHELIAL CELL,UR NUMEROUS /HPF (NEGATIVE)
[2024-07-16] MEDS: MAG-OX TAB PO SCH (18:15)
[2024-07-16] MEDS: K-DUR TAB 20 MEQ PO SCH (18:15)
[2024-07-16] MEDS ORDERED: DESYREL PO SCH (21:00)
[2024-07-16] MEDS: KLONOPIN TAB 1 MG PO SCH (21:57)
[2024-07-16] MEDS: LIPITOR TAB 40 MG PO SCH (21:58)
[2024-07-16] MEDS: LOPRESSOR TAB 25 MG PO SCH (21:58)
[2024-07-16] MEDS: DESYREL PO SCH (21:58)
[2024-07-16] MEDS: TRICOR TAB 160 MG PO SCH (21:58)
[2024-07-17] MEDS: TYLENOL 325 MG TAB PO PRN (02:23)
[2024-07-17 05:54] LABS: MEAN PLATELET VOLUME 10.2 fL (7.4-11.0); WHITE BLOOD COUNT 8.4 X10^3/uL (3.6-10.0)
[2024-07-17 06:02] LABS: BASOPHILS # (AUTO) 0.1 X10^3/uL (0.0-0.1); BASOPHILS % (AUTO) 1.1 % (0.2-1.0); EOSINOPHILS # (AUTO) 0.4 x10^3/uL (0.0-0.2); EOSINOPHILS % (AUTO) 4.2 % (0.9-2.9); HEMATOCRIT 34.1 % (36.0-47.0); HEMOGLOBIN 11.8 g/dL (12.0-16.0); LYMPHOCYTES # (AUTO) 4.1 X10^3/uL (1.3-2.9); LYMPHOCYTES % (AUTO) 48.4 % (21.0-51.0); MEAN CORPUSCULAR HEMOGLOBIN 32.5 pg (27.0-34.0); MEAN CORPUSCULAR HGB CONC 34.7 g/dL (33.0-35.0); MEAN CORPUSCULAR VOLUME 93.6 fL (80.0-100.0); MONOCYTES # (AUTO) 0.7 x10^3/uL (0.3-0.8); NEUTROPHILS # (AUTO) 3.2 x10^3/uL (2.2-4.8); NEUTROPHILS % (AUTO) 38.3 % (42.0-75.0); PLATELET COUNT 217 X10^3/uL (150.0-450.0); RED BLOOD COUNT 3.64 X10^6/uL (3.5-5.4); RED CELL DISTRIBUTION WIDTH 14.4 % (11.6-16.5)
[2024-07-17 06:09] LABS: ALANINE AMINOTRANSFERASE 32 Units/L (12-78); ALBUMIN 2.1 g/dL (3.4-5.0); ALKALINE PHOSPHATASE 69 Units/L (46-116); ASPARTATE AMINO TRANSFERASE 30 Units/L (15-37); BLOOD UREA NITROGEN 7 mg/dL (7-18); CALCIUM 9.1 mg/dL (8.5-10.1); CARBON DIOXIDE 25.9 mmol/L (21-32); CHLORIDE 110 mmol/L (98-107); COR CA(FOR HYPOALB) 10.6 mg/dL (8.5-10.1); COR NA(FOR HYPERGLY) 145 mmol/L (136-145); CREATININE 0.81 mg/dL (0.55-1.02); GLUCOSE 116 mg/dL (65-99); POTASSIUM 3.2 mmol/L (3.5-5.1); SODIUM 145 mmol/L (136-145); TOTAL PROTEIN 4.7 g/dL (6.4-8.2); eGFR NON BLACK RACES > 60 (>60)
[2024-07-17] MEDS: ROBITUSSIN DM PO PRN (06:14)
[2024-07-17] MEDS ORDERED: CONSULT PHARMACY - POTASSIUM & MAGNESIUM XX SCH (07:00)
[2024-07-17 09:00] VITALS: BMI 41.5
[2024-07-17] MEDS ORDERED: PHARMACY CONSULT - LOVENOX XX SCH (09:00)
[2024-07-17] MEDS ORDERED: MAG-OX TAB PO SCH (09:00)
[2024-07-17] MEDS ORDERED: K-DUR TAB 20 MEQ PO SCH (09:00)
[2024-07-17] MEDS ORDERED: OXYBUTYNIN CHLORIDE ER PO SCH (09:00)
[2024-07-17] MEDS: NS + KCL 20 MEQ/L 1,000 ML with MAGNESIUM SULFATE 50% INJ VIAL 1 G IV SCH (09:50)
[2024-07-17] MEDS: LOVENOX INJ 40 MG SYR SC SCH (09:51)
[2024-07-17] MEDS: ZESTRIL TAB 40 MG PO SCH (09:51)
[2024-07-17] MEDS: OXYBUTYNIN CHLORIDE ER PO SCH (21:47)
[2024-07-17] MEDS: AMBIEN PO PRN (21:49)
[2024-07-17] MEDS: COLACE CAP 100 MG PO PRN (21:59)
[2024-07-18] MEDS: RESTORIL CAP 15 MG PO PRN ×2 (02:29→20:35)
[2024-07-18 06:24] LABS: BASOPHILS # (AUTO) 0.1 X10^3/uL (0.0-0.1); BASOPHILS % (AUTO) 1.4 % (0.2-1.0); EOSINOPHILS # (AUTO) 0.4 x10^3/uL (0.0-0.2); HEMOGLOBIN 12.2 g/dL (12.0-16.0); LYMPHOCYTES # (AUTO) 4.3 X10^3/uL (1.3-2.9); LYMPHOCYTES % (AUTO) 48.4 % (21.0-51.0); MEAN CORPUSCULAR HGB CONC 33.8 g/dL (33.0-35.0); MEAN CORPUSCULAR VOLUME 94.7 fL (80.0-100.0); MEAN PLATELET VOLUME 10.2 fL (7.4-11.0); MONOCYTES # (AUTO) 0.8 x10^3/uL (0.3-0.8); MONOCYTES % (AUTO) 8.8 % (0.0-13.0); NEUTROPHILS # (AUTO) 3.3 x10^3/uL (2.2-4.8); NEUTROPHILS % (AUTO) 37.4 % (42.0-75.0); PLATELET COUNT 209 X10^3/uL (150.0-450.0); RED CELL DISTRIBUTION WIDTH 14.5 % (11.6-16.5); WHITE BLOOD COUNT 8.9 X10^3/uL (3.6-10.0)
[2024-07-18 06:35] LABS: ALANINE AMINOTRANSFERASE 29 Units/L (12-78); ALBUMIN 2.4 g/dL (3.4-5.0); ALKALINE PHOSPHATASE 66 Units/L (46-116); ASPARTATE AMINO TRANSFERASE 26 Units/L (15-37); BLOOD UREA NITROGEN 9 mg/dL (7-18); CALCIUM 9.1 mg/dL (8.5-10.1); CARBON DIOXIDE 23.7 mmol/L (21-32); CHLORIDE 111 mmol/L (98-107); COR CA(FOR HYPOALB) 10.4 mg/dL (8.5-10.1); CREATININE 0.76 mg/dL (0.55-1.02); GLUCOSE 98 mg/dL (65-99); MAGNESIUM 1.9 mg/dL (2.0-2.9); POTASSIUM 3.5 mmol/L (3.5-5.1); SODIUM 144 mmol/L (136-145); eGFR NON BLACK RACES > 60 (>60)
[2024-07-18] MEDS ORDERED: CONSULT PHARMACY - POTASSIUM & MAGNESIUM XX SCH (07:00)
[2024-07-18] MEDS: K-DUR TAB 20 MEQ PO SCH (10:55)
[2024-07-18] MEDS: MAG-OX TAB PO SCH (10:55)
[2024-07-18] MEDS: MEGACE PO SCH (10:56)
--- NOTE | 2024-07-18 15:10 | DR.H&P ---
H&P History & Physical for Day of: H&P Date: 07/16/24 Chief Complaint Chief Complaint: "I had those skin tears." History of Present Illness History of Present Illness: Azucena Corea is a 79-year-old woman who presents with a history of skin tears following knee surgery on May 16, 2023, which required stitches. She reports that her skin tear was very painful and tender, stating, "It hurt like hell." She has also expressed concerns about the warmth of the area but denies any signs of infection. Azucena has recently started physical therapy and is trying to regain mobility and strength in her knee, despite the initial pain. She has experienced difficulty with appetite and hydration, stating, "Nothing tasted good," and acknowledges being dehydrated at times. There have been no recent travel or new medications that could contribute to her condition. She specifically denies shortness of breath, chest pain, or any other acute symptoms that might interfere with her daily functioning. Past Medical History Past Medical History: Hypertension and MA Past Surgical History Surgical History: Appendectomy, Cholecystectomy, Joint Replacement, Ortho Surgery and Tonsillectomy Family History Family Medical History: Cancer, MA, Coronary Artery Disease and Hypertension Social History Does patient currently use any type of tobacco product: No Type of Tobacco Use: Cigarettes Does any household member use tobacco: No Alcohol Use: None Medications Home Medications: Home Medications Medication Instructions Recorded Confirmed Type fenofibrate 160 mg tablet 160 mg PO HS 11/17/18 07/16/24 History lisinopril 40 mg tablet 40 mg PO DAILY 11/17/18 07/16/24 History atorvastatin 40 mg tablet (Lipitor) 80 mg PO HS 05/27/22 07/16/24 History trazodone 50 mg tablet 50 mg PO HS 05/27/22 07/16/24 History clonazepam 1 mg tablet 1 mg PO QPM PRN 07/16/24 07/16/24 History metoprolol tartrate 25 mg tablet 25 mg PO BID 07/16/24 07/16/24 History oxybutynin chloride 10 mg 10 mg PO QDAY 07/16/24 07/16/24 History tablet,extended release 24 hr Allergies Allergies Allergy/AdvReac Type Severity Reaction Status Date / Time duloxetine [From Cymbalta] AdvReac Verified 05/27/22 14:18 latex AdvReac Verified 07/16/24 12:09 Labs 07/18/24 05:50 07/18/24 05:50 Labs: Laboratory WBC 8.4 X10^3/uL (3.6-10.0) 07/17/24 05:05 RBC 3.64 X10^6/uL (3.5-5.4) 07/17/24 05:05 Hgb 11.8 g/dL (12.0-16.0) L 07/17/24 05:05 Hct 34.1 % (36.0-47.0) L 07/17/24 05:05 MCV 93.6 fL (80.0-100.0) 07/17/24 05:05 MCH 32.5 pg (27.0-34.0) 07/17/24 05:05 MCHC 34.7 g/dL (33.0-35.0) 07/17/24 05:05 RDW 14.4 % (11.6-16.5) 07/17/24 05:05 Plt Count 217 X10^3/uL (150.0-450.0) 07/17/24 05:05 MPV 10.2 fL (7.4-11.0) 07/17/24 05:05 Neut % (Auto) 38.3 % (42.0-75.0) L 07/17/24 05:05 Lymph % (Auto) 48.4 % (21.0-51.0) 07/17/24 05:05 [place] % (Auto) 8.0 % (0.0-13.0) 07/17/24 05:05 Eos % (Auto) 4.2 % (0.9-2.9) H 07/17/24 05:05 Baso % (Auto) 1.1 % (0.2-1.0) H 07/17/24 05:05 Neut # (Auto) 3.2 x10^3/uL (2.2-4.8) 07/17/24 05:05 Lymph # (Auto) 4.1 X10^3/uL (1.3-2.9) H 07/17/24 05:05 [place] # (Auto) 0.7 x10^3/uL (0.3-0.8) 07/17/24 05:05 Eos # (Auto) 0.4 x10^3/uL (0.0-0.2) H 07/17/24 05:05 Baso # (Auto) 0.1 X10^3/uL (0.0-0.1) 07/17/24 05:05 Absolute Nucleated RBC 0.1 /100WBC 07/17/24 05:05 Sodium 145 mmol/L (136-145) 07/17/24 05:05 Corrected Sodium 145 mmol/L (136-145) 07/17/24 05:05 Potassium 3.2 mmol/L (3.5-5.1) L 07/17/24 05:05 Chloride 110 mmol/L (98-107) H 07/17/24 05:05 Carbon Dioxide 25.9 mmol/L (21-32) 07/17/24 05:05 BUN 7 mg/dL (7-18) 07/17/24 05:05 Creatinine 0.81 mg/dL (0.55-1.02) 07/17/24 05:05 Est GFR (MDRD) Af Amer > 60 (>60) 07/17/24 05:05 Est GFR (MDRD) Non-Af > 60 (>60) 07/17/24 05:05 Glucose 116 mg/dL (65-99) H 07/17/24 05:05 Calcium 9.1 mg/dL (8.5-10.1) 07/17/24 05:05 Corrected Calcium 10.6 mg/dL (8.5-10.1) H 07/17/24 05:05 Magnesium 1.4 mg/dL (2.0-2.9) L 07/17/24 05:05 Total Bilirubin 0.20 mg/dL (0.2-1.0) 07/17/24 05:05 AST 30 Units/L (15-37) 07/17/24 05:05 ALT 32 Units/L (12-78) 07/17/24 05:05 Alkaline Phosphatase 69 Units/L (46-116) 07/17/24 05:05 Total Protein 4.7 g/dL (6.4-8.2) L 07/17/24 05:05 Albumin 2.1 g/dL (3.4-5.0) L 07/17/24 05:05 Globulin 2.6 g/dL (2.5-4.5) 07/17/24 05:05 Albumin/Globulin Ratio 0.8 Ratio (1.1-2.1) L 07/17/24 05:05 Specimen Type Clean catch urine 07/16/24 16:45 Urine Color Dark yellow (YELLOW) 07/16/24 16:45 Urine Appearance Slightly hazy (CLEAR) 07/16/24 16:45 Urine pH 5.0 (5.0 - 8.0) 07/16/24 16:45 Ur Specific [place] 1.030 (1.000-1.030) 07/16/24 16:45 Urine Protein 2+ (NEGATIVE) 07/16/24 16:45 Urine Glucose (UA) Negative (NEGATIVE) 07/16/24 16:45 Urine Ketones 1+ (NEGATIVE) 07/16/24 16:45 Urine Blood Negative (NEGATIVE) 07/16/24 16:45 Urine Nitrite Negative (NEGATIVE) 07/16/24 16:45 Urine Bilirubin 1+ (NEGATIVE) 07/16/24 16:45 Urine Urobilinogen 1+ (NORMAL) 07/16/24 16:45 Ur Leukocyte Esterase 1+ (NEGATIVE) 07/16/24 16:45 Urine RBC 0-2 /HPF (0-3) 07/16/24 16:45 Urine WBC 0-2 /HPF (0-5) 07/16/24 16:45 Ur Squamous Epith Cells Numerous /HPF (NEGATIVE) 07/16/24 16:45 Calcium Oxalate Crystal Many /HPF (NEGATIVE) 07/16/24 16:45 Urine Bacteria 2+ /HPF (NEGATIVE) 07/16/24 16:45 Ur Culture Indicated? No/not indicated 07/16/24 16:45 Urine Opiates Screen Negative (NEG=<300) 07/16/24 16:45 Urine Methadone Screen Negative (NEG=<300) 07/16/24 16:45 Ur Barbiturates Screen Negative (NEG=<200) 07/16/24 16:45 Ur Phencyclidine Scrn Negative (NEG=<25) 07/16/24 16:45 Ur Amphetamines Screen Negative (NEG=<1000) 07/16/24 16:45 U Benzodiazepines Scrn Positive (NEG=<200) A 07/16/24 16:45 Urine Cocaine Screen Negative (NEG=<300) 07/16/24 16:45 U Marijuana (THC) Screen Negative (NEG=<50) 07/16/24 16:45 Review of Systems Constitutional: Chills, Weakness and Malaise Eyes: No Symptoms Reported ENT: No Symptoms Reported Respiratory: SOB with Excertion; denies Cough, Shortness of Breath, Hemoptysis or Sputum Cardiovascular: No Symptoms Reported Gastrointestinal: No Symptoms Reported Genitourinary: No Symptoms Reported Musculoskeletal: Leg Pain Skin: No Symptoms Reported Neurological: No Symptoms Reported Physical Exam Vital Signs: Vital Signs Temperature 98.6 F Pulse Rate [Right Radial] 60 Respiratory Rate 16 Respiratory Rate 18 Respiratory Rate 18 Blood Pressure [Right Arm] 155/72 O2 Sat by Pulse Oximetry 95 Oriented: Normal, Time, Person and Place Eyes: Normal Nose: Normal Throat: Normal Respiratory: Clear Throughout Cardiovascular: Normal Auscultation: Bowel Sounds: Normal Palpation: Normal Tenderness: Normal Skin: Normal Musculoskeletal: Knee (The patient's left knee is erythematous but there is no evidence of any drainage or infection at this time. There is a surgical incision that is well-healed.) Psychiatric: Depression Mood Description: Depressed Affect: Flat Speech Pattern: Clear and Appropriate Assessment/Plan (1) Difficulty in walking involving joint: Status: Acute Plan: Assessment and Plan Azucena presents with skin tear recovery and issues related to dehydration and electrolyte imbalances. The plan includes increasing hydration, correcting magnesium levels to subsequently correct potassium levels, and adjusting Trazodone dosage. Follow-up appointments should focus on lab monitoring and progress in both recovery and physical therapy. Clear instructions on diet and hydration needs should be communicated, with specific follow-ups on symptom management related to medications. (2) Physical deconditioning: Status: Acute Plan: Physical therapy consultation. (3) Poor motivation: Status: Acute (4) Hypomagnesemia: Status: Acute Plan: Magnesium correction with potassium replacement protocol which utilizes a magnesium replacement protocol as well. (5) Acute hypokalemia: Status: Acute Plan: Potassium correction potassium replacement protocol. (6) Chronic knee pain after total replacement of left knee joint: Status: Acute Review H&P Reviewed: Yes Patient was examined?: Yes
--- NOTE | 2024-07-18 15:17 | PCM.PROG ---
Progress Note Progress Note for Day of Date of Exam: 07/17/24 Subjective Subjective: History/Background Azucena has a history of hypertension and is currently on lisinopril 40 mg daily and metoprolol tartrate 25 mg twice daily. She reported not sleeping well and had issues with frostbite. She has been on lisinopril for years without experiencing a chronic dry cough. Past Medical Family Social History Allergies: Allergies duloxetine [From Cymbalta] Adverse Reaction (Verified 05/27/22 14:18) latex Adverse Reaction (Verified 07/16/24 12:09) Vital Signs and I&O's Vital Signs: Vital Signs Temperature 97.7 F Temperature 97.9 F Pulse Rate [Right Radial] 63 Pulse Rate [Right Radial] 58 Respiratory Rate 18 Respiratory Rate 18 Blood Pressure [Right Arm] 96/56 Blood Pressure [Right Arm] 141/68 O2 Sat by Pulse Oximetry 96 O2 Sat by Pulse Oximetry 99 Intake and Output: Intake & Output 07/16/24 07/17/24 07/18/24 07/19/24 11:59 11:59 11:59 11:59 Intake Total 1530 / 1530 2778 / 2778 Balance 1530 / 1530 2778 / 2778 Clinical Observations Upon examination, Azucena's blood pressure during this visit was initially low at 80/53 but has stabilized and increased to 152/71 at 8 PM last night and 155/72 this morning. Heart rate was measured at 60 bpm. The surgical site on her knee appears warm, with two patricia still present and a little scab forming. 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 No signs of swelling in the ankles or along the fingers were noted. Physical Exam Oriented: Normal, Time, Person and Place Eyes: Normal Nose: Normal Throat: Normal Cardiovascular: Normal Auscultation: Bowel Sounds: Normal Tenderness: Normal Skin: Normal Musculoskeletal: Knee (The patient's left knee is erythematous but there is no evidence of any drainage or infection at this time. There is a surgical incision that is well-healed.) Psychiatric: Depression Mood Description: Depressed Affect: Flat Speech Pattern: Clear and Appropriate Laboratory and Diagnostics 07/18/24 05:50 07/18/24 05:50 Labs: Laboratory WBC 8.9 X10^3/uL (3.6-10.0) 07/18/24 05:50 RBC 3.80 X10^6/uL (3.5-5.4) 07/18/24 05:50 Hgb 12.2 g/dL (12.0-16.0) 07/18/24 05:50 Hct 36.0 % (36.0-47.0) 07/18/24 05:50 MCV 94.7 fL (80.0-100.0) 07/18/24 05:50 MCH 32.0 pg (27.0-34.0) 07/18/24 05:50 MCHC 33.8 g/dL (33.0-35.0) 07/18/24 05:50 RDW 14.5 % (11.6-16.5) 07/18/24 05:50 Plt Count 209 X10^3/uL (150.0-450.0) 07/18/24 05:50 MPV 10.2 fL (7.4-11.0) 07/18/24 05:50 Neut % (Auto) 37.4 % (42.0-75.0) L 07/18/24 05:50 Lymph % (Auto) 48.4 % (21.0-51.0) 07/18/24 05:50 [place] % (Auto) 8.8 % (0.0-13.0) 07/18/24 05:50 Eos % (Auto) 4.0 % (0.9-2.9) H 07/18/24 05:50 Baso % (Auto) 1.4 % (0.2-1.0) H 07/18/24 05:50 Neut # (Auto) 3.3 x10^3/uL (2.2-4.8) 07/18/24 05:50 Lymph # (Auto) 4.3 X10^3/uL (1.3-2.9) H 07/18/24 05:50 [place] # (Auto) 0.8 x10^3/uL (0.3-0.8) 07/18/24 05:50 Eos # (Auto) 0.4 x10^3/uL (0.0-0.2) H 07/18/24 05:50 Baso # (Auto) 0.1 X10^3/uL (0.0-0.1) 07/18/24 05:50 Absolute Nucleated RBC 0.0 /100WBC 07/18/24 05:50 Sodium 144 mmol/L (136-145) 07/18/24 05:50 Corrected Sodium TNP 07/18/24 05:50 Potassium 3.5 mmol/L (3.5-5.1) 07/18/24 05:50 Chloride 111 mmol/L (98-107) H 07/18/24 05:50 Carbon Dioxide 23.7 mmol/L (21-32) 07/18/24 05:50 BUN 9 mg/dL (7-18) 07/18/24 05:50 Creatinine 0.76 mg/dL (0.55-1.02) 07/18/24 05:50 Est GFR (MDRD) Af Amer > 60 (>60) 07/18/24 05:50 Est GFR (MDRD) Non-Af > 60 (>60) 07/18/24 05:50 Glucose 98 mg/dL (65-99) 07/18/24 05:50 Calcium 9.1 mg/dL (8.5-10.1) 07/18/24 05:50 Corrected Calcium 10.4 mg/dL (8.5-10.1) H 07/18/24 05:50 Magnesium 1.9 mg/dL (2.0-2.9) L 07/18/24 05:50 Total Bilirubin 0.40 mg/dL (0.2-1.0) 07/18/24 05:50 AST 26 Units/L (15-37) 07/18/24 05:50 ALT 29 Units/L (12-78) 07/18/24 05:50 Alkaline Phosphatase 66 Units/L (46-116) 07/18/24 05:50 Total Protein 5.0 g/dL (6.4-8.2) L 07/18/24 05:50 Albumin 2.4 g/dL (3.4-5.0) L 07/18/24 05:50 Globulin 2.6 g/dL (2.5-4.5) 07/18/24 05:50 Albumin/Globulin Ratio 0.9 Ratio (1.1-2.1) L 07/18/24 05:50 Specimen Type Clean catch urine 07/16/24 16:45 Urine Color Dark yellow (YELLOW) 07/16/24 16:45 Urine Appearance Slightly hazy (CLEAR) 07/16/24 16:45 Urine pH 5.0 (5.0 - 8.0) 07/16/24 16:45 Ur Specific [place] 1.030 (1.000-1.030) 07/16/24 16:45 Urine Protein 2+ (NEGATIVE) 07/16/24 16:45 Urine Glucose (UA) Negative (NEGATIVE) 07/16/24 16:45 Urine Ketones 1+ (NEGATIVE) 07/16/24 16:45 Urine Blood Negative (NEGATIVE) 07/16/24 16:45 Urine Nitrite Negative (NEGATIVE) 07/16/24 16:45 Urine Bilirubin 1+ (NEGATIVE) 07/16/24 16:45 Urine Urobilinogen 1+ (NORMAL) 07/16/24 16:45 Ur Leukocyte Esterase 1+ (NEGATIVE) 07/16/24 16:45 Urine RBC 0-2 /HPF (0-3) 07/16/24 16:45 Urine WBC 0-2 /HPF (0-5) 07/16/24 16:45 Ur Squamous Epith Cells Numerous /HPF (NEGATIVE) 07/16/24 16:45 Calcium Oxalate Crystal Many /HPF (NEGATIVE) 07/16/24 16:45 Urine Bacteria 2+ /HPF (NEGATIVE) 07/16/24 16:45 Ur Culture Indicated? No/not indicated 07/16/24 16:45 Urine Opiates Screen Negative (NEG=<300) 07/16/24 16:45 Urine Methadone Screen Negative (NEG=<300) 07/16/24 16:45 Ur Barbiturates Screen Negative (NEG=<200) 07/16/24 16:45 Ur Phencyclidine Scrn Negative (NEG=<25) 07/16/24 16:45 Ur Amphetamines Screen Negative (NEG=<1000) 07/16/24 16:45 U Benzodiazepines Scrn Positive (NEG=<200) A 07/16/24 16:45 Urine Cocaine Screen Negative (NEG=<300) 07/16/24 16:45 U Marijuana (THC) Screen Negative (NEG=<50) 07/16/24 16:45 Plan (1) Difficulty in walking involving joint: Status: Acute (2) Physical deconditioning: Status: Acute Plan: Physical therapy consultation. (3) Poor motivation: Status: Acute (4) Hypomagnesemia: Status: Acute Plan: Magnesium correction with potassium replacement protocol which utilizes a magnesium replacement protocol as well. (5) Acute hypokalemia: Status: Acute Plan: Potassium correction potassium replacement protocol. (6) Chronic knee pain after total replacement of left knee joint: Status: Acute Plan: Plan/Recommendations Plan is to adjust medications: continue lisinopril at 40 mg daily, increase metoprolol if heart rate allows, but since the heart rate is normal, do not increase it at this time. I will add 12.5 mg of hydrochlorothiazide or consider 5 mg of amlodipine to prevent dehydration. I plan to reassess her knee next month and will ensure proper equipment for staple removal is available.
--- NOTE | 2024-07-18 15:19 | PCM.PROG ---
Progress Note Progress Note for Day of Date of Exam: 07/18/24 Subjective Subjective: History/Background Patient reports difficulty sleeping due to nurses coming in and out during the night. She has been experiencing excessive sleepiness during the day. Patient has been taking multiple medications for sleep, including clonazepam, trazodone, temazepam, and possibly Ambien (though patient denies taking Ambien). Patient's appetite is reported as "not too good". Past Medical Family Social History Allergies: Allergies duloxetine [From Cymbalta] Adverse Reaction (Verified 05/27/22 14:18) latex Adverse Reaction (Verified 07/16/24 12:09) Review of Systems ROS: No change since H&P Vital Signs and I&O's Vital Signs: Vital Signs Temperature 97.7 F Temperature 97.9 F Pulse Rate [Right Radial] 63 Pulse Rate [Right Radial] 58 Respiratory Rate 18 Respiratory Rate 18 Blood Pressure [Right Arm] 96/56 Blood Pressure [Right Arm] 141/68 O2 Sat by Pulse Oximetry 96 O2 Sat by Pulse Oximetry 99 Intake and Output: Intake & Output 07/16/24 07/17/24 07/18/24 07/19/24 11:59 11:59 11:59 11:59 Intake Total 1530 / 1530 2778 / 2778 Balance 1530 / 1530 2778 / 2778 1. Nucla have been removed, and the scapula incision is closed up 2. Patient appears sleepy during the examination 3. Vital signs look good 4. CBC is normal 5. Electrolytes are good 6. Kidney function is normal 7. Corrected calcium is slightly elevated (10.6 yesterday and the day before, slightly lower today) 8. Magnesium is 1.9 (normal range 2.0 to 2.9) 9. Liver tests are normal 10. Albumin is slightly low 11. No edema observed 12. Lungs were listened to during examination, but results not specified Physical Exam Oriented: Normal, Time, Person and Place Eyes: Normal Nose: Normal Throat: Normal Cardiovascular: Normal Auscultation: Bowel Sounds: Normal Tenderness: Normal Skin: Normal Musculoskeletal: Knee (The patient's left knee is erythematous but there is no evidence of any drainage or infection at this time. There is a surgical incision that is well-healed.) Psychiatric: Depression Mood Description: Depressed Affect: Flat Speech Pattern: Clear and Appropriate Laboratory and Diagnostics 07/18/24 05:50 07/18/24 05:50 Labs: Laboratory WBC 8.9 X10^3/uL (3.6-10.0) 07/18/24 05:50 RBC 3.80 X10^6/uL (3.5-5.4) 07/18/24 05:50 Hgb 12.2 g/dL (12.0-16.0) 07/18/24 05:50 Hct 36.0 % (36.0-47.0) 07/18/24 05:50 MCV 94.7 fL (80.0-100.0) 07/18/24 05:50 MCH 32.0 pg (27.0-34.0) 07/18/24 05:50 MCHC 33.8 g/dL (33.0-35.0) 07/18/24 05:50 RDW 14.5 % (11.6-16.5) 07/18/24 05:50 Plt Count 209 X10^3/uL (150.0-450.0) 07/18/24 05:50 MPV 10.2 fL (7.4-11.0) 07/18/24 05:50 Neut % (Auto) 37.4 % (42.0-75.0) L 07/18/24 05:50 Lymph % (Auto) 48.4 % (21.0-51.0) 07/18/24 05:50 [place] % (Auto) 8.8 % (0.0-13.0) 07/18/24 05:50 Eos % (Auto) 4.0 % (0.9-2.9) H 07/18/24 05:50 Baso % (Auto) 1.4 % (0.2-1.0) H 07/18/24 05:50 Neut # (Auto) 3.3 x10^3/uL (2.2-4.8) 07/18/24 05:50 Lymph # (Auto) 4.3 X10^3/uL (1.3-2.9) H 07/18/24 05:50 [place] # (Auto) 0.8 x10^3/uL (0.3-0.8) 07/18/24 05:50 Eos # (Auto) 0.4 x10^3/uL (0.0-0.2) H 07/18/24 05:50 Baso # (Auto) 0.1 X10^3/uL (0.0-0.1) 07/18/24 05:50 Absolute Nucleated RBC 0.0 /100WBC 07/18/24 05:50 Sodium 144 mmol/L (136-145) 07/18/24 05:50 Corrected Sodium TNP 07/18/24 05:50 Potassium 3.5 mmol/L (3.5-5.1) 07/18/24 05:50 Chloride 111 mmol/L (98-107) H 07/18/24 05:50 Carbon Dioxide 23.7 mmol/L (21-32) 07/18/24 05:50 BUN 9 mg/dL (7-18) 07/18/24 05:50 Creatinine 0.76 mg/dL (0.55-1.02) 07/18/24 05:50 Est GFR (MDRD) Af Amer > 60 (>60) 07/18/24 05:50 Est GFR (MDRD) Non-Af > 60 (>60) 07/18/24 05:50 Glucose 98 mg/dL (65-99) 07/18/24 05:50 Calcium 9.1 mg/dL (8.5-10.1) 07/18/24 05:50 Corrected Calcium 10.4 mg/dL (8.5-10.1) H 07/18/24 05:50 Magnesium 1.9 mg/dL (2.0-2.9) L 07/18/24 05:50 Total Bilirubin 0.40 mg/dL (0.2-1.0) 07/18/24 05:50 AST 26 Units/L (15-37) 07/18/24 05:50 ALT 29 Units/L (12-78) 07/18/24 05:50 Alkaline Phosphatase 66 Units/L (46-116) 07/18/24 05:50 Total Protein 5.0 g/dL (6.4-8.2) L 07/18/24 05:50 Albumin 2.4 g/dL (3.4-5.0) L 07/18/24 05:50 Globulin 2.6 g/dL (2.5-4.5) 07/18/24 05:50 Albumin/Globulin Ratio 0.9 Ratio (1.1-2.1) L 07/18/24 05:50 Specimen Type Clean catch urine 07/16/24 16:45 Urine Color Dark yellow (YELLOW) 07/16/24 16:45 Urine Appearance Slightly hazy (CLEAR) 07/16/24 16:45 Urine pH 5.0 (5.0 - 8.0) 07/16/24 16:45 Ur Specific [place] 1.030 (1.000-1.030) 07/16/24 16:45 Urine Protein 2+ (NEGATIVE) 07/16/24 16:45 Urine Glucose (UA) Negative (NEGATIVE) 07/16/24 16:45 Urine Ketones 1+ (NEGATIVE) 07/16/24 16:45 Urine Blood Negative (NEGATIVE) 07/16/24 16:45 Urine Nitrite Negative (NEGATIVE) 07/16/24 16:45 Urine Bilirubin 1+ (NEGATIVE) 07/16/24 16:45 Urine Urobilinogen 1+ (NORMAL) 07/16/24 16:45 Ur Leukocyte Esterase 1+ (NEGATIVE) 07/16/24 16:45 Urine RBC 0-2 /HPF (0-3) 07/16/24 16:45 Urine WBC 0-2 /HPF (0-5) 07/16/24 16:45 Ur Squamous Epith Cells Numerous /HPF (NEGATIVE) 07/16/24 16:45 Calcium Oxalate Crystal Many /HPF (NEGATIVE) 07/16/24 16:45 Urine Bacteria 2+ /HPF (NEGATIVE) 07/16/24 16:45 Ur Culture Indicated? No/not indicated 07/16/24 16:45 Urine Opiates Screen Negative (NEG=<300) 07/16/24 16:45 Urine Methadone Screen Negative (NEG=<300) 07/16/24 16:45 Ur Barbiturates Screen Negative (NEG=<200) 07/16/24 16:45 Ur Phencyclidine Scrn Negative (NEG=<25) 07/16/24 16:45 Ur Amphetamines Screen Negative (NEG=<1000) 07/16/24 16:45 U Benzodiazepines Scrn Positive (NEG=<200) A 07/16/24 16:45 Urine Cocaine Screen Negative (NEG=<300) 07/16/24 16:45 U Marijuana (THC) Screen Negative (NEG=<50) 07/16/24 16:45 Plan (1) Difficulty in walking involving joint: Status: Acute Plan: Assessment and Plan Azucena presents with skin tear recovery and issues related to dehydration and electrolyte imbalances. The plan includes increasing hydration, correcting magnesium levels to subsequently correct potassium levels, and adjusting Trazodone dosage. Follow-up appointments should focus on lab monitoring and progress in both recovery and physical therapy. Clear instructions on diet and hydration needs should be communicated, with specific follow-ups on symptom management related to medications. (2) Physical deconditioning: Status: Acute Plan: Physical therapy consultation. (3) Poor motivation: Status: Acute (4) Hypomagnesemia: Status: Acute Plan: Magnesium correction with potassium replacement protocol which utilizes a magnesium replacement protocol as well. (5) Acute hypokalemia: Status: Acute Plan: Potassium correction potassium replacement protocol. (6) Chronic knee pain after total replacement of left knee joint: Status: Acute Plan: 1. Discontinue trazodone and Ambien because of patient's increased daytime somnolence and excessive sleepiness which may be side effects of these medications. Monitor for improvement tomorrow morning. 2. Increase temazepam to 30 mg at bedtime 3. Discontinue clonazepam 4. Start Megace at 20 mg twice daily to stimulate appetite 5. Consider transferring patient to swing bed today or tomorrow for further rehabilitation and physical therapy 6. Encourage increased physical activity and movement (7) Excessive somnolence disorder: Status: Acute
[2024-07-19 06:16] LABS: BASOPHILS # (AUTO) 0.1 X10^3/uL (0.0-0.1); BASOPHILS % (AUTO) 1.2 % (0.2-1.0); EOSINOPHILS # (AUTO) 0.4 x10^3/uL (0.0-0.2); EOSINOPHILS % (AUTO) 4.1 % (0.9-2.9); HEMATOCRIT 33.5 % (36.0-47.0); HEMOGLOBIN 11.4 g/dL (12.0-16.0); LYMPHOCYTES # (AUTO) 3.9 X10^3/uL (1.3-2.9); LYMPHOCYTES % (AUTO) 42.6 % (21.0-51.0); MEAN CORPUSCULAR VOLUME 94.1 fL (80.0-100.0); MEAN PLATELET VOLUME 10.3 fL (7.4-11.0); MONOCYTES # (AUTO) 0.7 x10^3/uL (0.3-0.8); MONOCYTES % (AUTO) 7.2 % (0.0-13.0); NEUTROPHILS # (AUTO) 4.1 x10^3/uL (2.2-4.8); NEUTROPHILS % (AUTO) 44.9 % (42.0-75.0); PLATELET COUNT 206 X10^3/uL (150.0-450.0); RED BLOOD COUNT 3.57 X10^6/uL (3.5-5.4); RED CELL DISTRIBUTION WIDTH 14.6 % (11.6-16.5); WHITE BLOOD COUNT 9.1 X10^3/uL (3.6-10.0)
[2024-07-19 06:35] LABS: ALANINE AMINOTRANSFERASE 22 Units/L (12-78); ALBUMIN 2.1 g/dL (3.4-5.0); ALKALINE PHOSPHATASE 59 Units/L (46-116); ASPARTATE AMINO TRANSFERASE 21 Units/L (15-37); BLOOD UREA NITROGEN 11 mg/dL (7-18); CALCIUM 8.7 mg/dL (8.5-10.1); CHLORIDE 112 mmol/L (98-107); COR CA(FOR HYPOALB) 10.2 mg/dL (8.5-10.1); CREATININE 0.65 mg/dL (0.55-1.02); GLUCOSE 110 mg/dL (65-99); MAGNESIUM 1.9 mg/dL (2.0-2.9); POTASSIUM 3.8 mmol/L (3.5-5.1); SODIUM 142 mmol/L (136-145); TOTAL PROTEIN 4.6 g/dL (6.4-8.2); eGFR NON BLACK RACES > 60 (>60)
--- NOTE | 2024-07-19 22:00 | PCM.PROG ---
Progress Note Progress Note for Day of Date of Exam: 07/19/24 Subjective Subjective: Clinical Observations The patient's knee shows some edema, which is expected due to recent surgery. This edema is likely to be chronic but should not be problematic if it remains mild. The patient's vital signs look good. She appears more awake and has better color today compared to previous observations. The patient seems to have more energy during the day, likely due to the changes made to her nighttime medication. Past Medical Family Social History Allergies: Allergies duloxetine [From Cymbalta] Adverse Reaction (Verified 05/27/22 14:18) latex Adverse Reaction (Verified 07/16/24 12:09) Review of Systems ROS: No change since H&P Vital Signs and I&O's Vital Signs: Vital Signs Temperature 98.6 F Temperature 98.0 F Pulse Rate [Right Radial] 65 Pulse Rate [Right Radial] 69 Respiratory Rate 18 Respiratory Rate 20 Respiratory Rate 22 Respiratory Rate 18 Blood Pressure [Right Arm] 131/61 Blood Pressure [Right Arm] 126/84 O2 Sat by Pulse Oximetry 99 O2 Sat by Pulse Oximetry 99 Intake and Output: Intake & Output 07/17/24 07/18/24 07/19/24 07/20/24 11:59 11:59 11:59 11:59 Intake Total 1530 / 1530 2778 / 2778 2719 / 2719 2060 Balance 1530 / 1530 2778 / 2778 9 / 2719 2060 Physical Exam Oriented: Normal, Time, Person and Place Eyes: Normal Nose: Normal Throat: Normal Respiratory: Normal Cardiovascular: Normal Auscultation: Bowel Sounds: Normal Tenderness: Normal Skin: Normal Musculoskeletal: Knee (The patient's left knee is erythematous but there is no evidence of any drainage or infection at this time. There is a surgical incision that is well-healed.) Psychiatric: Depression Mood Description: Depressed Affect: Flat Speech Pattern: Clear and Appropriate Laboratory and Diagnostics 07/19/24 05:34 07/19/24 05:34 Labs: Laboratory WBC 9.1 X10^3/uL (3.6-10.0) 07/19/24 05:34 RBC 3.57 X10^6/uL (3.5-5.4) 07/19/24 05:34 Hgb 11.4 g/dL (12.0-16.0) L 07/19/24 05:34 Hct 33.5 % (36.0-47.0) L 07/19/24 05:34 MCV 94.1 fL (80.0-100.0) 07/19/24 05:34 MCH 32.0 pg (27.0-34.0) 07/19/24 05:34 MCHC 34.0 g/dL (33.0-35.0) 07/19/24 05:34 RDW 14.6 % (11.6-16.5) 07/19/24 05:34 Plt Count 206 X10^3/uL (150.0-450.0) 07/19/24 05:34 MPV 10.3 fL (7.4-11.0) 07/19/24 05:34 Neut % (Auto) 44.9 % (42.0-75.0) 07/19/24 05:34 Lymph % (Auto) 42.6 % (21.0-51.0) 07/19/24 05:34 [place] % (Auto) 7.2 % (0.0-13.0) 07/19/24 05:34 Eos % (Auto) 4.1 % (0.9-2.9) H 07/19/24 05:34 Baso % (Auto) 1.2 % (0.2-1.0) H 07/19/24 05:34 Neut # (Auto) 4.1 x10^3/uL (2.2-4.8) 07/19/24 05:34 Lymph # (Auto) 3.9 X10^3/uL (1.3-2.9) H 07/19/24 05:34 [place] # (Auto) 0.7 x10^3/uL (0.3-0.8) 07/19/24 05:34 Eos # (Auto) 0.4 x10^3/uL (0.0-0.2) H 07/19/24 05:34 Baso # (Auto) 0.1 X10^3/uL (0.0-0.1) 07/19/24 05:34 Absolute Nucleated RBC 0.0 /100WBC 07/19/24 05:34 Sodium 142 mmol/L (136-145) 07/19/24 05:34 Corrected Sodium TNP 07/19/24 05:34 Potassium 3.8 mmol/L (3.5-5.1) 07/19/24 05:34 Chloride 112 mmol/L (98-107) H 07/19/24 05:34 Carbon Dioxide 24.0 mmol/L (21-32) 07/19/24 05:34 BUN 11 mg/dL (7-18) 07/19/24 05:34 Creatinine 0.65 mg/dL (0.55-1.02) 07/19/24 05:34 Est GFR (MDRD) Af Amer > 60 (>60) 07/19/24 05:34 Est GFR (MDRD) Non-Af > 60 (>60) 07/19/24 05:34 Glucose 110 mg/dL (65-99) H 07/19/24 05:34 Calcium 8.7 mg/dL (8.5-10.1) 07/19/24 05:34 Corrected Calcium 10.2 mg/dL (8.5-10.1) H 07/19/24 05:34 Magnesium 1.9 mg/dL (2.0-2.9) L 07/19/24 05:34 Total Bilirubin 0.40 mg/dL (0.2-1.0) 07/19/24 05:34 AST 21 Units/L (15-37) 07/19/24 05:34 ALT 22 Units/L (12-78) 07/19/24 05:34 Alkaline Phosphatase 59 Units/L (46-116) 07/19/24 05:34 Total Protein 4.6 g/dL (6.4-8.2) L 07/19/24 05:34 Albumin 2.1 g/dL (3.4-5.0) L 07/19/24 05:34 Globulin 2.5 g/dL (2.5-4.5) 07/19/24 05:34 Albumin/Globulin Ratio 0.8 Ratio (1.1-2.1) L 07/19/24 05:34 Specimen Type Clean catch urine 07/16/24 16:45 Urine Color Dark yellow (YELLOW) 07/16/24 16:45 Urine Appearance Slightly hazy (CLEAR) 07/16/24 16:45 Urine pH 5.0 (5.0 - 8.0) 07/16/24 16:45 Ur Specific [place] 1.030 (1.000-1.030) 07/16/24 16:45 Urine Protein 2+ (NEGATIVE) 07/16/24 16:45 Urine Glucose (UA) Negative (NEGATIVE) 07/16/24 16:45 Urine Ketones 1+ (NEGATIVE) 07/16/24 16:45 Urine Blood Negative (NEGATIVE) 07/16/24 16:45 Urine Nitrite Negative (NEGATIVE) 07/16/24 16:45 Urine Bilirubin 1+ (NEGATIVE) 07/16/24 16:45 Urine Urobilinogen 1+ (NORMAL) 07/16/24 16:45 Ur Leukocyte Esterase 1+ (NEGATIVE) 07/16/24 16:45 Urine RBC 0-2 /HPF (0-3) 07/16/24 16:45 Urine WBC 0-2 /HPF (0-5) 07/16/24 16:45 Ur Squamous Epith Cells Numerous /HPF (NEGATIVE) 07/16/24 16:45 Calcium Oxalate Crystal Many /HPF (NEGATIVE) 07/16/24 16:45 Urine Bacteria 2+ /HPF (NEGATIVE) 07/16/24 16:45 Ur Culture Indicated? No/not indicated 07/16/24 16:45 Urine Opiates Screen Negative (NEG=<300) 07/16/24 16:45 Urine Methadone Screen Negative (NEG=<300) 07/16/24 16:45 Ur Barbiturates Screen Negative (NEG=<200) 07/16/24 16:45 Ur Phencyclidine Scrn Negative (NEG=<25) 07/16/24 16:45 Ur Amphetamines Screen Negative (NEG=<1000) 07/16/24 16:45 U Benzodiazepines Scrn Positive (NEG=<200) A 07/16/24 16:45 Urine Cocaine Screen Negative (NEG=<300) 07/16/24 16:45 U Marijuana (THC) Screen Negative (NEG=<50) 07/16/24 16:45 Plan (1) Difficulty in walking involving joint: Status: Acute Plan: Plan/Recommendations I am changing the patient over to swing bed this coming Monday. We will continue current treatment at this time. She is improving overall and seems to be more motivated now since we have discontinued her nighttime Ambien and trazodone. I think this was causing a lot of her problems as outpatient as it was causing her to be excessively sedated. (2) Physical deconditioning: Status: Acute Plan: Transfer to swing bed admission in 3 days from now for continued inpatient physical therapy. (3) Poor motivation: Status: Resolved Narrative Support Text: Improved since discontinuing nighttime sedatives resulted in being more alert during the day and more motivated. (4) Hypomagnesemia: Status: Resolved Plan: Magnesium correction with potassium replacement protocol which utilizes a magnesium replacement protocol as well. (5) Acute hypokalemia: Status: Resolved Plan: Potassium correction potassium replacement protocol. (6) Chronic knee pain after total replacement of left knee joint: Status: Acute Narrative Support Text: Pain is stable at this time. (7) Excessive somnolence disorder: Status: Resolved Narrative Support Text: Improved since discontinuing nighttime sedatives.
[2024-07-19] MEDS: ULTRAM PO PRN (23:37)
[2024-07-20] MEDS: MAGNESIUM SULFATE 50% INJ VIAL ONE (06:22)
[2024-07-20] MEDS: NS + KCL 20 MEQ/L 0 ML IV ONE (06:23)
[2024-07-20 07:00] LABS: BASOPHILS # (AUTO) 0.1 X10^3/uL (0.0-0.1); BASOPHILS % (AUTO) 0.9 % (0.2-1.0); EOSINOPHILS # (AUTO) 0.4 x10^3/uL (0.0-0.2); EOSINOPHILS % (AUTO) 4.1 % (0.9-2.9); HEMATOCRIT 32.6 % (36.0-47.0); HEMOGLOBIN 11.2 g/dL (12.0-16.0); LYMPHOCYTES # (AUTO) 3.9 X10^3/uL (1.3-2.9); LYMPHOCYTES % (AUTO) 39.9 % (21.0-51.0); MEAN CORPUSCULAR HEMOGLOBIN 32.4 pg (27.0-34.0); MEAN CORPUSCULAR HGB CONC 34.3 g/dL (33.0-35.0); MEAN CORPUSCULAR VOLUME 94.4 fL (80.0-100.0); MEAN PLATELET VOLUME 10.3 fL (7.4-11.0); MONOCYTES # (AUTO) 0.8 x10^3/uL (0.3-0.8); MONOCYTES % (AUTO) 7.9 % (0.0-13.0); NEUTROPHILS # (AUTO) 4.6 x10^3/uL (2.2-4.8); NEUTROPHILS % (AUTO) 47.2 % (42.0-75.0); PLATELET COUNT 189 X10^3/uL (150.0-450.0); RED BLOOD COUNT 3.45 X10^6/uL (3.5-5.4); RED CELL DISTRIBUTION WIDTH 14.9 % (11.6-16.5); WHITE BLOOD COUNT 9.7 X10^3/uL (3.6-10.0)
[2024-07-20 07:16] LABS: ALANINE AMINOTRANSFERASE 20 Units/L (12-78); ALBUMIN 2.2 g/dL (3.4-5.0); ALKALINE PHOSPHATASE 65 Units/L (46-116); ASPARTATE AMINO TRANSFERASE 18 Units/L (15-37); BLOOD UREA NITROGEN 12 mg/dL (7-18); CALCIUM 8.8 mg/dL (8.5-10.1); CARBON DIOXIDE 22.2 mmol/L (21-32); CHLORIDE 110 mmol/L (98-107); COR CA(FOR HYPOALB) 10.2 mg/dL (8.5-10.1); CREATININE 0.94 mg/dL (0.55-1.02); GLUCOSE 109 mg/dL (65-99); MAGNESIUM 1.8 mg/dL (2.0-2.9); SODIUM 140 mmol/L (136-145); TOTAL PROTEIN 4.7 g/dL (6.4-8.2); eGFR NON BLACK RACES > 60 (>60)
[2024-07-21 06:11] LABS: HEMOGLOBIN 11.7 g/dL (12.0-16.0); MEAN CORPUSCULAR HGB CONC 34.1 g/dL (33.0-35.0); PLATELET COUNT 192 X10^3/uL (150.0-450.0); WHITE BLOOD COUNT 10.6 X10^3/uL (3.6-10.0)
[2024-07-21 06:18] LABS: BASOPHILS # (AUTO) 0.1 X10^3/uL (0.0-0.1); BASOPHILS % (AUTO) 1.2 % (0.2-1.0); EOSINOPHILS # (AUTO) 0.4 x10^3/uL (0.0-0.2); EOSINOPHILS % (AUTO) 3.8 % (0.9-2.9); HEMATOCRIT 34.3 % (36.0-47.0); LYMPHOCYTES # (AUTO) 4.5 X10^3/uL (1.3-2.9); LYMPHOCYTES % (AUTO) 42.1 % (21.0-51.0); MEAN CORPUSCULAR HEMOGLOBIN 32.3 pg (27.0-34.0); MEAN CORPUSCULAR VOLUME 94.7 fL (80.0-100.0); MEAN PLATELET VOLUME 10.8 fL (7.4-11.0); MONOCYTES # (AUTO) 0.7 x10^3/uL (0.3-0.8); MONOCYTES % (AUTO) 6.8 % (0.0-13.0); NEUTROPHILS # (AUTO) 4.9 x10^3/uL (2.2-4.8); NEUTROPHILS % (AUTO) 46.1 % (42.0-75.0); RED BLOOD COUNT 3.62 X10^6/uL (3.5-5.4); RED CELL DISTRIBUTION WIDTH 14.8 % (11.6-16.5)
[2024-07-21 06:28] LABS: ALANINE AMINOTRANSFERASE 18 Units/L (12-78); ALBUMIN 2.2 g/dL (3.4-5.0); ALKALINE PHOSPHATASE 73 Units/L (46-116); ASPARTATE AMINO TRANSFERASE 16 Units/L (15-37); BLOOD UREA NITROGEN 12 mg/dL (7-18); CARBON DIOXIDE 21.6 mmol/L (21-32); CHLORIDE 110 mmol/L (98-107); COR CA(FOR HYPOALB) 10.4 mg/dL (8.5-10.1); CREATININE 0.85 mg/dL (0.55-1.02); GLUCOSE 105 mg/dL (65-99); POTASSIUM 4.4 mmol/L (3.5-5.1); SODIUM 139 mmol/L (136-145); TOTAL PROTEIN 5.1 g/dL (6.4-8.2); eGFR NON BLACK RACES > 60 (>60)
--- NOTE | 2024-07-21 08:51 | PCM.PROG ---
Progress Note Progress Note for Day of Date of Exam: 07/20/24 Subjective Subjective: Patient is a 73-year-old female that is admitted for Physical deconditioning after having a left knee replacement. She also has electrolyte abnormalities that were being repleted per protocol. This morning she is laying in bed. She does report still having a lot of pain. She does have pain medication to be given as needed that she can ask for. No acute events overnight. Labs/imaging: WBC 9.7, hemoglobin 11.2, platelets 189, sodium 140, potassium 4.0, creatinine 0.94, glucose 109. Home medications have been resumed. Otherwise continue current treatment plan and physical therapy. Continue closely monitor follow-up labs. Past Medical Family Social History Allergies: Allergies duloxetine [From Cymbalta] Adverse Reaction (Verified 05/27/22 14:18) latex Adverse Reaction (Verified 07/16/24 12:09) Review of Systems ROS changes noted: see HPI Vital Signs and I&O's Vital Signs: Vital Signs Temperature 98.1 F Temperature 98.1 F Pulse Rate [Right Radial] 62 Pulse Rate [Right Radial] 62 Respiratory Rate 21 Respiratory Rate 21 Respiratory Rate 20 Respiratory Rate 22 Blood Pressure [Right Arm] 118/72 Blood Pressure [Right Arm] 118/72 O2 Sat by Pulse Oximetry 95 O2 Sat by Pulse Oximetry 95 Intake and Output: Intake & Output 07/18/24 07/19/24 07/20/24 07/21/24 23:59 23:59 23:59 23:59 Intake Total 3382 / 3382 3163 / 3163 3392 / 3392 540 / 540 Output Total 202 / 202 Balance 3382 / 3382 3163 / 3163 3392 / 3392 338 / 338 Physical Exam Oriented: Normal, Time, Person and Place Eyes: Normal Nose: Normal Throat: Normal Respiratory: Normal Cardiovascular: Normal Auscultation: Bowel Sounds: Normal Tenderness: Normal Skin: Normal Musculoskeletal: Knee (The patient's left knee. There is a surgical incision that is well-healed.) Psychiatric: Normal Mood Description: Calm Affect: Flat Speech Pattern: Clear Laboratory and Diagnostics 07/21/24 05:40 07/21/24 05:40 Labs: Laboratory WBC 10.6 X10^3/uL (3.6-10.0) H 07/21/24 05:40 RBC 3.62 X10^6/uL (3.5-5.4) 07/21/24 05:40 Hgb 11.7 g/dL (12.0-16.0) L 07/21/24 05:40 Hct 34.3 % (36.0-47.0) L 07/21/24 05:40 MCV 94.7 fL (80.0-100.0) 07/21/24 05:40 MCH 32.3 pg (27.0-34.0) 07/21/24 05:40 MCHC 34.1 g/dL (33.0-35.0) 07/21/24 05:40 RDW 14.8 % (11.6-16.5) 07/21/24 05:40 Plt Count 192 X10^3/uL (150.0-450.0) 07/21/24 05:40 MPV 10.8 fL (7.4-11.0) 07/21/24 05:40 Neut % (Auto) 46.1 % (42.0-75.0) 07/21/24 05:40 Lymph % (Auto) 42.1 % (21.0-51.0) 07/21/24 05:40 [place] % (Auto) 6.8 % (0.0-13.0) 07/21/24 05:40 Eos % (Auto) 3.8 % (0.9-2.9) H 07/21/24 05:40 Baso % (Auto) 1.2 % (0.2-1.0) H 07/21/24 05:40 Neut # (Auto) 4.9 x10^3/uL (2.2-4.8) H 07/21/24 05:40 Lymph # (Auto) 4.5 X10^3/uL (1.3-2.9) H 07/21/24 05:40 [place] # (Auto) 0.7 x10^3/uL (0.3-0.8) 07/21/24 05:40 Eos # (Auto) 0.4 x10^3/uL (0.0-0.2) H 07/21/24 05:40 Baso # (Auto) 0.1 X10^3/uL (0.0-0.1) 07/21/24 05:40 Absolute Nucleated RBC 0.1 /100WBC 07/21/24 05:40 Sodium 139 mmol/L (136-145) 07/21/24 05:40 Corrected Sodium TNP 07/21/24 05:40 Potassium 4.4 mmol/L (3.5-5.1) 07/21/24 05:40 Chloride 110 mmol/L (98-107) H 07/21/24 05:40 Carbon Dioxide 21.6 mmol/L (21-32) 07/21/24 05:40 BUN 12 mg/dL (7-18) 07/21/24 05:40 Creatinine 0.85 mg/dL (0.55-1.02) 07/21/24 05:40 Est GFR (MDRD) Af Amer > 60 (>60) 07/21/24 05:40 Est GFR (MDRD) Non-Af > 60 (>60) 07/21/24 05:40 Glucose 105 mg/dL (65-99) H 07/21/24 05:40 Calcium 9.0 mg/dL (8.5-10.1) 07/21/24 05:40 Corrected Calcium 10.4 mg/dL (8.5-10.1) H 07/21/24 05:40 Magnesium 1.8 mg/dL (2.0-2.9) L 07/20/24 06:36 Total Bilirubin 0.40 mg/dL (0.2-1.0) 07/21/24 05:40 AST 16 Units/L (15-37) 07/21/24 05:40 ALT 18 Units/L (12-78) 07/21/24 05:40 Alkaline Phosphatase 73 Units/L (46-116) 07/21/24 05:40 Total Protein 5.1 g/dL (6.4-8.2) L 07/21/24 05:40 Albumin 2.2 g/dL (3.4-5.0) L 07/21/24 05:40 Globulin 2.9 g/dL (2.5-4.5) 07/21/24 05:40 Albumin/Globulin Ratio 0.8 Ratio (1.1-2.1) L 07/21/24 05:40 Specimen Type Clean catch urine 07/16/24 16:45 Urine Color Dark yellow (YELLOW) 07/16/24 16:45 Urine Appearance Slightly hazy (CLEAR) 07/16/24 16:45 Urine pH 5.0 (5.0 - 8.0) 07/16/24 16:45 Ur Specific [place] 1.030 (1.000-1.030) 07/16/24 16:45 Urine Protein 2+ (NEGATIVE) 07/16/24 16:45 Urine Glucose (UA) Negative (NEGATIVE) 07/16/24 16:45 Urine Ketones 1+ (NEGATIVE) 07/16/24 16:45 Urine Blood Negative (NEGATIVE) 07/16/24 16:45 Urine Nitrite Negative (NEGATIVE) 07/16/24 16:45 Urine Bilirubin 1+ (NEGATIVE) 07/16/24 16:45 Urine Urobilinogen 1+ (NORMAL) 07/16/24 16:45 Ur Leukocyte Esterase 1+ (NEGATIVE) 07/16/24 16:45 Urine RBC 0-2 /HPF (0-3) 07/16/24 16:45 Urine WBC 0-2 /HPF (0-5) 07/16/24 16:45 Ur Squamous Epith Cells Numerous /HPF (NEGATIVE) 07/16/24 16:45 Calcium Oxalate Crystal Many /HPF (NEGATIVE) 07/16/24 16:45 Urine Bacteria 2+ /HPF (NEGATIVE) 07/16/24 16:45 Ur Culture Indicated? No/not indicated 07/16/24 16:45 Urine Opiates Screen Negative (NEG=<300) 07/16/24 16:45 Urine Methadone Screen Negative (NEG=<300) 07/16/24 16:45 Ur Barbiturates Screen Negative (NEG=<200) 07/16/24 16:45 Ur Phencyclidine Scrn Negative (NEG=<25) 07/16/24 16:45 Ur Amphetamines Screen Negative (NEG=<1000) 07/16/24 16:45 U Benzodiazepines Scrn Positive (NEG=<200) A 07/16/24 16:45 Urine Cocaine Screen Negative (NEG=<300) 07/16/24 16:45 U Marijuana (THC) Screen Negative (NEG=<50) 07/16/24 16:45 Plan (1) Difficulty in walking involving joint: Status: Acute Plan: Plan/Recommendations I am changing the patient over to swing bed this coming Monday. We will continue current treatment at this time. She is improving overall and seems to be more motivated now since we have discontinued her nighttime Ambien and trazodone. I think this was causing a lot of her problems as outpatient as it was causing her to be excessively sedated. (2) Physical deconditioning: Status: Acute Plan: Transfer to swing bed admission in 3 days from now for continued inpatient physical therapy. (3) Poor motivation: Status: Resolved (4) Hypomagnesemia: Status: Resolved Plan: Magnesium correction with potassium replacement protocol which utilizes a magnesium replacement protocol as well. (5) Acute hypokalemia: Status: Resolved Plan: Potassium correction potassium replacement protocol. (6) Chronic knee pain after total replacement of left knee joint: Status: Acute Plan: 1. Discontinue trazodone and Ambien because of patient's increased daytime somnolence and excessive sleepiness which may be side effects of these medications. Monitor for improvement tomorrow morning. 2. Increase temazepam to 30 mg at bedtime 3. Discontinue clonazepam 4. Start Megace at 20 mg twice daily to stimulate appetite 5. Consider transferring patient to swing bed today or tomorrow for further rehabilitation and physical therapy 6. Encourage increased physical activity and movement (7) Excessive somnolence disorder: Status: Resolved
[2024-07-21] MEDS: NEOSPORIN OINT TOP SCH (11:23)
--- NOTE | 2024-07-21 12:01 | PCM.PROG ---
Progress Note Progress Note for Day of Date of Exam: 07/21/24 Subjective Subjective: Patient is a 73-year-old female that is admitted for Physical deconditioning after having a left knee replacement. She also has electrolyte abnormalities that were being repleted per protocol. This morning she is sitting in recliner. She has started to ambulate more. No acute events overni ght. Labs/imaging: WBC 10.6, hemoglobin 11.7, platelets 192, sodium 139, potassium 4.4, creatinine 0.85, glucose 105. Home medications have been resumed. Otherwise continue current treatment plan and physical therapy. Continue closely monitor follow-up labs. Past Medical Family Social History Allergies: Allergies duloxetine [From Cymbalta] Adverse Reaction (Verified 05/27/22 14:18) latex Adverse Reaction (Verified 07/16/24 12:09) Review of Systems ROS: No change since H&P Vital Signs and I&O's Vital Signs: Vital Signs Temperature 97.5 F Temperature 98.1 F Temperature 98.1 F Pulse Rate [Left Brachial] 64 Pulse Rate [Right Radial] 62 Pulse Rate [Right Radial] 62 Respiratory Rate 20 Respiratory Rate 21 Respiratory Rate 21 Blood Pressure [Left Arm] 117/64 Blood Pressure [Right Arm] 118/72 Blood Pressure [Right Arm] 118/72 O2 Sat by Pulse Oximetry 97 O2 Sat by Pulse Oximetry 95 O2 Sat by Pulse Oximetry 95 Intake and Output: Intake & Output 07/18/24 07/19/24 07/20/24 07/21/24 23:59 23:59 23:59 23:59 Intake Total 3382 / 3382 3163 / 3163 3392 / 3392 540 / 540 Output Total 202 / 202 Balance 3382 / 3382 3163 / 3163 3392 / 3392 338 / 338 Physical Exam Oriented: Normal, Time, Person and Place Eyes: Normal Nose: Normal Throat: Normal Respiratory: Normal Cardiovascular: Normal Auscultation: Bowel Sounds: Normal Tenderness: Normal Skin: Normal Musculoskeletal: Knee (The patient's left knee. There is a surgical incision that is well-healed.) Psychiatric: Normal Mood Description: Calm Affect: Flat Speech Pattern: Clear Laboratory and Diagnostics 07/21/24 05:40 07/21/24 05:40 Labs: Laboratory WBC 10.6 X10^3/uL (3.6-10.0) H 07/21/24 05:40 RBC 3.62 X10^6/uL (3.5-5.4) 07/21/24 05:40 Hgb 11.7 g/dL (12.0-16.0) L 07/21/24 05:40 Hct 34.3 % (36.0-47.0) L 07/21/24 05:40 MCV 94.7 fL (80.0-100.0) 07/21/24 05:40 MCH 32.3 pg (27.0-34.0) 07/21/24 05:40 MCHC 34.1 g/dL (33.0-35.0) 07/21/24 05:40 RDW 14.8 % (11.6-16.5) 07/21/24 05:40 Plt Count 192 X10^3/uL (150.0-450.0) 07/21/24 05:40 MPV 10.8 fL (7.4-11.0) 07/21/24 05:40 Neut % (Auto) 46.1 % (42.0-75.0) 07/21/24 05:40 Lymph % (Auto) 42.1 % (21.0-51.0) 07/21/24 05:40 [place] % (Auto) 6.8 % (0.0-13.0) 07/21/24 05:40 Eos % (Auto) 3.8 % (0.9-2.9) H 07/21/24 05:40 Baso % (Auto) 1.2 % (0.2-1.0) H 07/21/24 05:40 Neut # (Auto) 4.9 x10^3/uL (2.2-4.8) H 07/21/24 05:40 Lymph # (Auto) 4.5 X10^3/uL (1.3-2.9) H 07/21/24 05:40 [place] # (Auto) 0.7 x10^3/uL (0.3-0.8) 07/21/24 05:40 Eos # (Auto) 0.4 x10^3/uL (0.0-0.2) H 07/21/24 05:40 Baso # (Auto) 0.1 X10^3/uL (0.0-0.1) 07/21/24 05:40 Absolute Nucleated RBC 0.1 /100WBC 07/21/24 05:40 Sodium 139 mmol/L (136-145) 07/21/24 05:40 Corrected Sodium TNP 07/21/24 05:40 Potassium 4.4 mmol/L (3.5-5.1) 07/21/24 05:40 Chloride 110 mmol/L (98-107) H 07/21/24 05:40 Carbon Dioxide 21.6 mmol/L (21-32) 07/21/24 05:40 BUN 12 mg/dL (7-18) 07/21/24 05:40 Creatinine 0.85 mg/dL (0.55-1.02) 07/21/24 05:40 Est GFR (MDRD) Af Amer > 60 (>60) 07/21/24 05:40 Est GFR (MDRD) Non-Af > 60 (>60) 07/21/24 05:40 Glucose 105 mg/dL (65-99) H 07/21/24 05:40 Calcium 9.0 mg/dL (8.5-10.1) 07/21/24 05:40 Corrected Calcium 10.4 mg/dL (8.5-10.1) H 07/21/24 05:40 Magnesium 1.8 mg/dL (2.0-2.9) L 07/20/24 06:36 Total Bilirubin 0.40 mg/dL (0.2-1.0) 07/21/24 05:40 AST 16 Units/L (15-37) 07/21/24 05:40 ALT 18 Units/L (12-78) 07/21/24 05:40 Alkaline Phosphatase 73 Units/L (46-116) 07/21/24 05:40 Total Protein 5.1 g/dL (6.4-8.2) L 07/21/24 05:40 Albumin 2.2 g/dL (3.4-5.0) L 07/21/24 05:40 Globulin 2.9 g/dL (2.5-4.5) 07/21/24 05:40 Albumin/Globulin Ratio 0.8 Ratio (1.1-2.1) L 07/21/24 05:40 Specimen Type Clean catch urine 07/16/24 16:45 Urine Color Dark yellow (YELLOW) 07/16/24 16:45 Urine Appearance Slightly hazy (CLEAR) 07/16/24 16:45 Urine pH 5.0 (5.0 - 8.0) 07/16/24 16:45 Ur Specific [place] 1.030 (1.000-1.030) 07/16/24 16:45 Urine Protein 2+ (NEGATIVE) 07/16/24 16:45 Urine Glucose (UA) Negative (NEGATIVE) 07/16/24 16:45 Urine Ketones 1+ (NEGATIVE) 07/16/24 16:45 Urine Blood Negative (NEGATIVE) 07/16/24 16:45 Urine Nitrite Negative (NEGATIVE) 07/16/24 16:45 Urine Bilirubin 1+ (NEGATIVE) 07/16/24 16:45 Urine Urobilinogen 1+ (NORMAL) 07/16/24 16:45 Ur Leukocyte Esterase 1+ (NEGATIVE) 07/16/24 16:45 Urine RBC 0-2 /HPF (0-3) 07/16/24 16:45 Urine WBC 0-2 /HPF (0-5) 07/16/24 16:45 Ur Squamous Epith Cells Numerous /HPF (NEGATIVE) 07/16/24 16:45 Calcium Oxalate Crystal Many /HPF (NEGATIVE) 07/16/24 16:45 Urine Bacteria 2+ /HPF (NEGATIVE) 07/16/24 16:45 Ur Culture Indicated? No/not indicated 07/16/24 16:45 Urine Opiates Screen Negative (NEG=<300) 07/16/24 16:45 Urine Methadone Screen Negative (NEG=<300) 07/16/24 16:45 Ur Barbiturates Screen Negative (NEG=<200) 07/16/24 16:45 Ur Phencyclidine Scrn Negative (NEG=<25) 07/16/24 16:45 Ur Amphetamines Screen Negative (NEG=<1000) 07/16/24 16:45 U Benzodiazepines Scrn Positive (NEG=<200) A 07/16/24 16:45 Urine Cocaine Screen Negative (NEG=<300) 07/16/24 16:45 U Marijuana (THC) Screen Negative (NEG=<50) 07/16/24 16:45 Plan (1) Difficulty in walking involving joint: Status: Acute Plan: Plan/Recommendations I am changing the patient over to swing bed this coming Monday. We will continue current treatment at this time. She is improving overall and seems to be more motivated now. (2) Physical deconditioning: Status: Acute Plan: Transfer to swing bed admission for continued inpatient physical therapy. (3) Poor motivation: Status: Resolved (4) Hypomagnesemia: Status: Resolved Plan: Magnesium correction with potassium replacement protocol which utilizes a magnesium replacement protocol as well. (5) Acute hypokalemia: Status: Resolved Plan: Potassium correction potassium replacement protocol. (6) Chronic knee pain after total replacement of left knee joint: Status: Acute Plan: 1. Discontinue trazodone and Ambien because of patient's increased daytime somnolence and excessive sleepiness which may be side effects of these medications. Monitor for improvement tomorrow morning. 2. Increase temazepam to 30 mg at bedtime 3. Discontinue clonazepam 4. Start Megace at 20 mg twice daily to stimulate appetite 5. Consider transferring patient to swing bed today or tomorrow for further rehabilitation and physical therapy 6. Encourage increased physical activity and movement (7) Excessive somnolence disorder: Status: Resolved
[2024-07-22 05:57] LABS: BASOPHILS # (AUTO) 0.1 X10^3/uL (0.0-0.1); BASOPHILS % (AUTO) 1.5 % (0.2-1.0); EOSINOPHILS # (AUTO) 0.3 x10^3/uL (0.0-0.2); EOSINOPHILS % (AUTO) 3.9 % (0.9-2.9); HEMATOCRIT 34.4 % (36.0-47.0); HEMOGLOBIN 11.5 g/dL (12.0-16.0); LYMPHOCYTES # (AUTO) 3.5 X10^3/uL (1.3-2.9); LYMPHOCYTES % (AUTO) 39.4 % (21.0-51.0); MEAN CORPUSCULAR HEMOGLOBIN 31.8 pg (27.0-34.0); MEAN CORPUSCULAR HGB CONC 33.5 g/dL (33.0-35.0); MEAN PLATELET VOLUME 10.9 fL (7.4-11.0); MONOCYTES # (AUTO) 0.8 x10^3/uL (0.3-0.8); MONOCYTES % (AUTO) 9.6 % (0.0-13.0); NEUTROPHILS % (AUTO) 45.6 % (42.0-75.0); PLATELET COUNT 182 X10^3/uL (150.0-450.0); RED BLOOD COUNT 3.62 X10^6/uL (3.5-5.4); RED CELL DISTRIBUTION WIDTH 14.7 % (11.6-16.5); WHITE BLOOD COUNT 8.9 X10^3/uL (3.6-10.0)
[2024-07-22 06:11] LABS: ALANINE AMINOTRANSFERASE 17 Units/L (12-78); ALBUMIN 2.2 g/dL (3.4-5.0); ALKALINE PHOSPHATASE 62 Units/L (46-116); ASPARTATE AMINO TRANSFERASE 17 Units/L (15-37); BLOOD UREA NITROGEN 9 mg/dL (7-18); CARBON DIOXIDE 23.2 mmol/L (21-32); CHLORIDE 109 mmol/L (98-107); COR CA(FOR HYPOALB) 10.4 mg/dL (8.5-10.1); CREATININE 0.77 mg/dL (0.55-1.02); GLUCOSE 93 mg/dL (65-99); POTASSIUM 3.9 mmol/L (3.5-5.1); SODIUM 141 mmol/L (136-145); TOTAL PROTEIN 4.9 g/dL (6.4-8.2); eGFR NON BLACK RACES > 60 (>60)
[2024-07-22 08:08] VITALS: RESP 18; O2SAT 97
[2024-07-22] MEDS ORDERED: NS + KCL 20 MEQ/L 1,000 ML with MAGNESIUM SULFATE 50% INJ VIAL 2 G IV SCH (09:00)
[2024-07-22] MEDS: MAG-OX TAB PO SCH (09:05)
[2024-07-22] MEDS ORDERED: NEOSPORIN OINT ONE (09:13)
[2024-07-22 11:51] VITALS: BP 118/64; PULSE 60; TEMP 97.4
[2024-07-22] MEDS: NORCO 5/325 MG TAB PO PRN (13:17)
[2024-07-22] MEDS ORDERED: DETROL LA 2 MG CAP EXT REL PO SCH (21:00)
[2024-07-22] MEDS ORDERED: K-DUR TAB 20 MEQ PO SCH (21:00)
== END 2024-07-22 11:44 | disposition swing bed (61) ==
LOC: MED/SURG 11:56 → ER 11:56 → MED/SURG 16:18
PROVIDERS: ADMIT Family Medicine; ATTEND Family Medicine
DX: R55 Syncope and collapse; L53.8 Other specified erythematous conditions; E86.0 Dehydration; M25.562 Pain in left knee; R53.81 Other malaise; R26.89 Other abnormalities of gait and mobility; I10 Essential (primary) hypertension; Z48.02 Encounter for removal of sutures; Z98.890 Other specified postprocedural states; E87.6 Hypokalemia; E83.42 Hypomagnesemia; R06.02 Shortness of breath; Z96.652 Presence of left artificial knee joint; R62.7 Adult failure to thrive; R40.0 Somnolence; R26.2 Difficulty in walking, not elsewhere classified

== ENCOUNTER 2024-07-22 11:45 | Inpatient (IN) ==
[2024-07-22] MEDS ORDERED: COLACE CAP 100 MG PO PRN (12:13)
[2024-07-22] MEDS ORDERED: TYLENOL 325 MG TAB PO PRN (12:13)
[2024-07-22] MEDS: NORCO 5/325 MG TAB PO PRN (13:20)
[2024-07-22 15:34] VITALS: BMI 43.7
--- NOTE | 2024-07-22 16:18 | PT/OTEVAL ---
PT/OT OBJECTIVES - HISTORY Prescription: PT Consult Diagnosis: Deconditioning s/p L TKR Precautions: Fall Risk PMH: HTN, NH, Sick Sinus, Appendectomy, Cholecystectomy, Tonsillectomy, Ortho Sx, Joint Replacement Other: Per patient report (and later confirmed by family)- Pt resides at home with in a single story home with 3 steps to enter (no HR). Pt underwent L TKR at end of May and due to complications with surgical incision pt was made NWB x 4 weeks. Pt required mechanical lift at home during that time. Over 1-2 weeks, pt reports she has been able to start bearing weight through LLE and began home health services. States that she was starting to transfer; however, was also "blacking out" often causing decrease in her mobility. DME: FWW, Ewelina Lift, Wheelchair, Walk in Shower with Seat History of Present Illness: Pt is 73 year old female who was admitted to [facility] on 07/16/2024 with failure to thrive, hypomagnesia and hypokalema. Pt underwent elective L TKR on 06/12/[address] Smith in [place] and due to complications with incision and healing pt was made NWB x 4 weeks and discharged home with family from hospital. Pt was using mechanical lift with family and when she regained WB status home health services started and pt began to participate; however, pt reports that she began blacking out each time she got up and finally came to the ER for further assessment where she was subsequently admitted and due to decrease in mobility has been transitioned to swing bed program for participation in rehab services to facilitate highest level of function and safe discharge planning. - COGNITION Mental Status: Alert, Oriented, Name, Date, Place Communication Status: Verbal Ability to Follow Directions: 2 Step Affect: Appropriate - PAIN Left Foot Pain Scale: Severe Comments: Pain noted when WB on LLE; in WB pt reports pain is severe. Left Knee Pain Scale: Moderate Comments: At end range of available motion - BED MOBILITY Rolling: Minimal - TRANSFERS Supine to Sit: Moderate Sit to Stand: Moderate Sit to Stand Comment: Decreased WB through LLE due to heel pain Sit or Stand Pivot: Moderate Sit or Stand Pivot Comment: Decreased WB through LLE due to heel pain Toileting: Moderate Safety (requires cues for:): Hand Placement Precaution - BALANCE Static Sitting: Good Standing: Fair Balance Comment: Fair- Dynamic Sitting: Good Standing: Poor - NEUROMOTOR/SENSATION Jarrod. Lower Ext Sensation: WFL Coordination: WFL Proprioception: WFL - ROM Right LE ROM: WFL Muscle Tone: WFL Left Hip ROM: WFL Muscle Tone: WFL Left Knee ROM: Impaired Muscle Tone: WFL Comment: L Knee ROM: Flexion: 90 degrees, Extension: -5 degrees Left Ankle ROM: WFL Muscle Tone: WFL - STRENGTH Right LE Strength Number: 4 Left Hip Strength Number: 3 Other comment: 3+/5 Left Knee Strength Number: 3 Other comment: 10/16 Left Ankle Strength Number: 3 Other comment: 10/16 - GAIT Comments: Deferred ambulation d/t increased pain to L heel during WB - TREATMENT Date: 07/22/24 Time: 13:45 Treatment Type: Evaluation Treatment Provided: Therapeutic Activities, Therapeutic Excersises - TOTAL TREATMENT TIME Total Time: 75 - POST ASSESSMENT Post Assessment Comment: Pt was found supine in bed in room- agreeable to participation in PT but reports significant pain to L heel region and much worse in WB positions. Pt min assist for rolling R and L in bed with use of siderail. Pt mod assist for transition from supine to sitting EOB. Once at EOB, able to maintain balance. Mod assist for transfers; however, with decreased WB noted through LLE due to pain in L heel. Pt back to supine position with mod assist. Performed LLE exercises including: Ankle PF/DF, Heel Slides, SLR and Hip Abduction and Adduction- pain at end range of L knee flexion. Pt fatigued and required increased rest breaks. At end of session, radiology into room for L foot/ankle xray. Pt would benefit from continued participation in PT services to address remaining deficits and facilitate highest level of function and safe discharge planning. - EXIT DISPOSITION Exit Position: BED Call light in reach: Yes Comments: present in room PT/OT ASSESSMENT - PT Problem List: Decreased Bed Mobility, Decreased Transfers, Decreased Gait, Decreased Balance, Decreased Safety, Decreased LE Strength, Other - OT Problem List: Other - PT GOALS Short Term Goals Days: 10 Mobility: Pt will perform bed mobility tasks with touch assist Transfers: Pt will perform functional transfers with touch assist Gait: Pt will ambulate 75ft with FWW and touch assist Balance: Pt will increase static standing balance to good ROM/Strength: Pt will increase R knee ROM to 0 degrees extension and 100 degrees flexion Residential Goals Days: 20 Mobility: Pt will perform bed mobility tasks with mod I Transfers: Pt will perform functional transfers with mod I Gait: Pt will ambulate 150ft with FWW and mod I Balance: Pt will increase dynamic standing balance to fair+/good- ROM/Strength: Pt will increase BLE strength to 5/5 Others: Pt will ascend/descend 2 steps with HR and SBA - PATIENT GOALS Patient/Family Goals: "I want to get better so I can go home and move around" Goals Discussed with Patient/Family: Yes Rehabilitation Potential: Good to meet stated goals Justification for Potential: Facilitate highest level of function and safe discharge planning Weakness and Barriers: Pain If yes, explain: L heel and L knee - PLAN Suggested Treatment Plan: Bed Mobility Training, Therapeutic Activity, Gait Training, Neuro Re-education, Therapeutic Ex with HEP, Patient Education, Other Other comment: Manual Therapy - FREQUENCY AND DURATION PT: 5-6x per week x 20 days Expected Continuation of Care at Discharge: Outpatient Therapy, Home Health
--- NOTE | 2024-07-22 17:02 | PT/OTEVAL ---
PT/OT OBJECTIVES - HISTORY Prescription: OT Consult Diagnosis: Decondtioning s/p total knee replacement Precautions: Fall risk, L knee replacement PMH: Hypertension and DC, L knee replacement Other: Per pt report, pt lives with her in a 1 story home with 3 steps no HR. Pt underwent a L TKR at the end of May. and due to complications she was NWB for 4 weeks. Pt used a mechanical lift at home. Pt just started to bear weight on LLE and starting to transfer, however she was "blacking out". DME includes raoul lift, RW, w/c, walking shower with a seat. History of Present Illness: Pt is a 73 year olf female who was admitted to [facility] for FTT, hypomagnesia and hypokalema. She underwent elective L TKR in [place]. Complications with incision and healing pt was NWB x4 weeks and d/cd home. Pt used a raoul at home. She started to transfer with and starting to have black out episodes. She was admitted to [facility] for further assessment, and due to decrease in (I) pt was transitioned to swing bed program to address ADL deficits and faciliate highest level of ADL function needed for safe d/c planning. - COGNITION Mental Status: Alert Communication Status: Verbal Ability to Follow Directions: 2 Step Affect: Calm - PAIN Left Foot Pain Scale: Severe Comments: Swelling noted No signs of pain Pain Scale: No Pain Comments: No reports of pain at time of evaluation. Left Knee Pain Scale: Moderate Comments: At end range of available motion - BED MOBILITY Rolling: Moderate Scooting: Moderate - TRANSFERS Supine to Sit: Moderate Sit to Stand: Moderate Sit to Stand Comment: Pain in L heel limiting ability Toileting: Moderate Safety (requires cues for:): Hand Placement Precaution - ADL'S Feeding: Setup Grooming: Setup Upper Body ADL: Minimum Lower Body ADL: Maximum Toileting: Maximum Bathing: Maximum - BALANCE Static Sitting: Good Standing: Fair Dynamic Sitting: Good Standing: Poor - NEUROMOTOR/SENSATION Jarrod. Lower Ext Sensation: WFL Coordination: WFL Jarrod. Upper Ext Sensation: Impaired Coordination: WFL - HAND DOMINANCE Extremity Function: Hand Dominance: Right - STRENGTH Left Hip Strength Number: 3 Other comment: 3+/5 Left Knee Strength Number: 3 Other comment: 3/5 Left Ankle Strength Number: 3 Other comment: 3+/5 Left UE Strength Number: 3 Right UE Strength Number: 2 Right LE Strength Number: 4 - TREATMENT Date: 07/22/24 Time: 13:45 Treatment Type: Evaluation Treatment Provided: Therapeutic Activities, Other - TOTAL TREATMENT TIME Total Time: 75 - POST ASSESSMENT Post Assessment Comment: Pt was seen for skilled OT to assess CLOF. Pt agreeable to participate with skilled OT however reports significant pain to the L heel and states that the pain gets worse with weight bearing. Pt mod A for supine to sit. Max A for LB dressing and min A for UB dressing. Pt requires extra time for all ADL tasks due to pain and fatigue. Fatigues easily. All needs met and call light within reach. Xray came in at end of session to xray L heel. Pt demonstrate deficits with ADLs and ADL functional mobility. Pt would benefit from skilled OT services to address ADL deficits to facilitate highest level of ADL function needed for safe d/c planning. - EXIT DISPOSITION Exit Position: BED Call light in reach: Yes PT/OT ASSESSMENT - OT Problem List: Decreased Mobility ADL's, Decreased Safety Aware, Decreased Dressing, Decreased Bathing, Decreased Grooming, Decreased UE Strength - PT GOALS Short Term Goals Days: 10 Mobility: Pt will perform bed mobility tasks with touch assist Transfers: Pt will perform functional transfers with touch assist Gait: Pt will ambulate 75ft with FWW and touch assist Balance: Pt will increase static standing balance to good ROM/Strength: Pt will increase R knee ROM to 0 degrees extension and 100 degrees flexion [employer] Goals Days: 20 Mobility: Pt will perform bed mobility tasks with mod I Transfers: Pt will perform functional transfers with mod I Gait: Pt will ambulate 150ft with FWW and mod I Balance: Pt will increase dynamic standing balance to fair+/good- ROM/Strength: Pt will increase BLE strength to 5/5 Others: Pt will ascend/descend 2 steps with HR and SBA - OT GOALS Snf Goals Days: 20 Mobility for ADL's: Pt to improve functional ADL transfers with LRAD and set up A Safety Awareness: Pt to improve safety to G Dressing: Pt to improve LB dressing to supv A Bathing: Pt to improve bathing to supv A Upper Ext. Strength/Use: Pt to improve MMT in BUE by 1 grade Short Term Goals Mobility for ADL's: Pt to improve functional ADL transfers with LRAD and supv A Safety Awareness: Pt to improve safety to F+ Dressing: Pt to improve LB dressing to min A Bathing: Pt to improve bathing to min A Other: Pt to improve FAT to G - PATIENT GOALS Patient/Family Goals: Im ready to go home Rehabilitation Potential: Good to meet stated goals. Justification for Potential: To facilitate highest level of ADL function needed for safe d/c planning - PLAN Suggested Treatment Plan: Therapeutic Activity, Self Care Training, Neuro Re- education, Therapeutic Ex with HEP, Patient Education, Family Education - FREQUENCY AND DURATION OT: 5x a week x 20 days Expected Continuation of Care at Discharge: Determined on Progress
[2024-07-22] MEDS ORDERED: DETROL LA 2 MG CAP EXT REL PO SCH (21:00)
[2024-07-22] MEDS: LOPRESSOR TAB 25 MG PO SCH (21:03)
[2024-07-22] MEDS: MAG-OX TAB PO SCH (21:03)
[2024-07-22] MEDS: K-DUR TAB 20 MEQ PO SCH (21:03)
[2024-07-22] MEDS: NEOSPORIN OINT TOP SCH (21:03)
[2024-07-22] MEDS: LIPITOR TAB 40 MG PO SCH (21:03)
[2024-07-22] MEDS: DETROL LA 2 MG CAP EXT REL PO SCH (21:04)
[2024-07-22] MEDS: TRICOR TAB 160 MG PO SCH (21:04)
[2024-07-22] MEDS: RESTORIL CAP 15 MG PO PRN (22:22)
--- NOTE | 2024-07-23 05:08 | RAD ---
EXAM: FOOT, LEFT three-view HISTORY: PAIN, UNABLE TO WEIGHTBEAR; COMPARISON: 04/21/2021 FINDINGS: 5th proximal phalangeal base fracture. The remaining visualized osseous structures appear intact. N o acute soft tissue abnormality. Calcaneal enthesophyte(s). Scattered vascular calcifications. IMPRESSION: 5th proximal phalangeal base fracture. THIS IS AN ELECTRONICALLY VERIFIED FINAL REPORT 07/23/2024 5:04 AM - Electronically signed by Yobany Landry MD
[2024-07-23] MEDS ORDERED: OXYBUTYNIN CHLORIDE ER PO SCH (09:00)
[2024-07-23] MEDS: LOVENOX INJ 40 MG SYR SC SCH (09:18)
[2024-07-23] MEDS: ZESTRIL TAB 40 MG PO SCH (09:20)
[2024-07-23] MEDS: ULTRAM PO PRN (18:18)
[2024-07-23] MEDS: ROBITUSSIN DM PO PRN (18:18)
[2024-07-24] MEDS: VISTARIL PO PRN (03:05)
[2024-07-24 06:07] LABS: BASOPHILS # (AUTO) 0.1 X10^3/uL (0.0-0.1); BASOPHILS % (AUTO) 1.2 % (0.2-1.0); EOSINOPHILS # (AUTO) 0.3 x10^3/uL (0.0-0.2); HEMATOCRIT 30.4 % (36.0-47.0); HEMOGLOBIN 10.4 g/dL (12.0-16.0); LYMPHOCYTES # (AUTO) 3.7 X10^3/uL (1.3-2.9); LYMPHOCYTES % (AUTO) 48.1 % (21.0-51.0); MEAN CORPUSCULAR HEMOGLOBIN 32.2 pg (27.0-34.0); MEAN CORPUSCULAR HGB CONC 34.1 g/dL (33.0-35.0); MEAN CORPUSCULAR VOLUME 94.5 fL (80.0-100.0); MEAN PLATELET VOLUME 11.2 fL (7.4-11.0); MONOCYTES # (AUTO) 0.8 x10^3/uL (0.3-0.8); MONOCYTES % (AUTO) 9.9 % (0.0-13.0); NEUTROPHILS # (AUTO) 2.8 x10^3/uL (2.2-4.8); NEUTROPHILS % (AUTO) 36.8 % (42.0-75.0); PLATELET COUNT 174 X10^3/uL (150.0-450.0); RED BLOOD COUNT 3.21 X10^6/uL (3.5-5.4); RED CELL DISTRIBUTION WIDTH 14.7 % (11.6-16.5); WHITE BLOOD COUNT 7.6 X10^3/uL (3.6-10.0)
[2024-07-24 06:22] LABS: ALANINE AMINOTRANSFERASE 16 Units/L (12-78); ALKALINE PHOSPHATASE 76 Units/L (46-116); ASPARTATE AMINO TRANSFERASE 18 Units/L (15-37); BLOOD UREA NITROGEN 15 mg/dL (7-18); CALCIUM 8.8 mg/dL (8.5-10.1); CARBON DIOXIDE 22.7 mmol/L (21-32); CHLORIDE 111 mmol/L (98-107); COR CA(FOR HYPOALB) 10.4 mg/dL (8.5-10.1); COR NA(FOR HYPERGLY) 141 mmol/L (136-145); CREATININE 0.81 mg/dL (0.55-1.02); GLUCOSE 112 mg/dL (65-99); MAGNESIUM 1.5 mg/dL (2.0-2.9); POTASSIUM 3.8 mmol/L (3.5-5.1); SODIUM 141 mmol/L (136-145); TOTAL PROTEIN 4.5 g/dL (6.4-8.2); eGFR NON BLACK RACES > 60 (>60)
[2024-07-24] MEDS ORDERED: CONSULT PHARMACY - POTASSIUM & MAGNESIUM XX SCH (07:00)
[2024-07-24] MEDS: MAG-OX TAB PO SCH (07:12)
--- NOTE | 2024-07-24 15:25 | DR.CONSULT ---
CONSULT Consultation for Day of: Date: 07/24/24 Chief Complaint Chief Complaint: Left foot pain Allergies Allergies Allergy/AdvReac Type Severity Reaction Status Date / Time duloxetine [From Cymbalta] AdvReac Verified 05/27/22 14:18 latex AdvReac Verified 07/16/24 12:09 History of Present Illness History of Present Illness: Patient presented to hospital for rehab due to a recent knee arthroplasty to the left side. She had a serious "skin tear" on the dorsal aspect of the left knee. She had to be Non weight bearing while it healed. She was doing therapy and had pain in the left foot. A Xray was obtained which showed a fracture of the proximal phalanx of the left foot. PT wanted recommendations from Podiatry. Past Medical History Past Medical History: Hypertension and ID Past Surgical History Surgical History: Appendectomy, Cholecystectomy, Joint Replacement, Ortho Surgery and Tonsillectomy Family History Family Medical History: Cancer, ID and Coronary Artery Disease Medications Home Medications: duloxetine [From Cymbalta] Adverse Reaction (Verified 05/27/22 14:18) latex Adverse Reaction (Verified 07/16/24 12:09) Review of Systems Musculoskeletal: Foot Pain (Left) Physical Exam Vital Signs: Vital Signs Respiratory Rate 20 Oriented: Normal, Time and Person Cardiovascular: Other (DP and PT pulses intact. CFT WNL to all digits. Epicritic sensation intact. ) Skin: Other (No open wounds, soft tissue masses, or preulcerative lesions. ) Musculoskeletal: Left and Foot (Tender to plantar aspect of fifth metatarsal. No pain on fifth digit ROM. No pain at site of fracture. No pain on eversion, inversion, dorsiflexion, or plantarflexion. MSK is 5/5 to all groups. ) Plan (1) Fracture of proximal phalanx of lesser toe of left foot: Status: Acute Plan: - WBAT to LLE can be in regular shoe gear or post-op shoe. - Dispense post-op shoe. - Reviewed radiographs, show fracture proximal phalanx of fifth digit. Appears unicortical and alignment is overall well. - No signs of stress fracture or other fracture. - No limits with PT. - No need for surgery. - Okay for discharge from Podiatry. - Patient should follow-up with myself or Dr. Johnson in 1 month.
[2024-07-26 06:30] LABS: BASOPHILS # (AUTO) 0.1 X10^3/uL (0.0-0.1); BASOPHILS % (AUTO) 1.3 % (0.2-1.0); EOSINOPHILS # (AUTO) 0.3 x10^3/uL (0.0-0.2); EOSINOPHILS % (AUTO) 3.7 % (0.9-2.9); HEMATOCRIT 32.2 % (36.0-47.0); LYMPHOCYTES # (AUTO) 3.7 X10^3/uL (1.3-2.9); LYMPHOCYTES % (AUTO) 48.2 % (21.0-51.0); MEAN CORPUSCULAR HEMOGLOBIN 32.5 pg (27.0-34.0); MEAN CORPUSCULAR HGB CONC 34.2 g/dL (33.0-35.0); MEAN PLATELET VOLUME 11.1 fL (7.4-11.0); MONOCYTES # (AUTO) 0.7 x10^3/uL (0.3-0.8); MONOCYTES % (AUTO) 8.8 % (0.0-13.0); NEUTROPHILS # (AUTO) 2.9 x10^3/uL (2.2-4.8); PLATELET COUNT 186 X10^3/uL (150.0-450.0); RED BLOOD COUNT 3.39 X10^6/uL (3.5-5.4); RED CELL DISTRIBUTION WIDTH 14.9 % (11.6-16.5); WHITE BLOOD COUNT 7.7 X10^3/uL (3.6-10.0)
[2024-07-26 06:38] LABS: ALANINE AMINOTRANSFERASE 18 Units/L (12-78); ALBUMIN 2.2 g/dL (3.4-5.0); ALKALINE PHOSPHATASE 65 Units/L (46-116); ASPARTATE AMINO TRANSFERASE 20 Units/L (15-37); BLOOD UREA NITROGEN 19 mg/dL (7-18); CALCIUM 9.3 mg/dL (8.5-10.1); CARBON DIOXIDE 23.7 mmol/L (21-32); CHLORIDE 108 mmol/L (98-107); COR CA(FOR HYPOALB) 10.7 mg/dL (8.5-10.1); CREATININE 0.85 mg/dL (0.55-1.02); GLUCOSE 103 mg/dL (65-99); MAGNESIUM 1.9 mg/dL (2.0-2.9); POTASSIUM 3.8 mmol/L (3.5-5.1); SODIUM 139 mmol/L (136-145); TOTAL PROTEIN 4.9 g/dL (6.4-8.2); eGFR NON BLACK RACES > 60 (>60)
--- NOTE | 2024-07-26 19:56 | PCM.PROG ---
Progress Note Progress Note for Day of Date of Exam: 07/25/24 Subjective Subjective: Swing bed admission day 3 The patient is recovering from a procedure and has been working on exercises with a resistance band. She previously had difficulty walking but reports some improvement. A clinic physician, Dr. Earl, had recommended a post-op shoe for the patient, but the patient refused. I offered her an Unna boot the day before, but she refused because of a skin tear on the left anterior cifuentes. She thought the boot might make the pain worse and also make the skin tear worse, so she declined. She has no other complaints now and states that physical therapy is going well, and her appetite is improving. Past Medical Family Social History Past Med/Fam/Surg Hx: No changes since H&P Allergies: Allergies duloxetine [From Cymbalta] Adverse Reaction (Verified 05/27/22 14:18) latex Adverse Reaction (Verified 07/16/24 12:09) Review of Systems ROS: No change since H&P Vital Signs and I&O's Vital Signs: Clinical Observations * Patient reports feeling stronger and notes walking is "a little better." * Patient successfully walked to the bathroom yesterday. * Vital signs: * Blood pressure: 134/63 * Pulse: 62 * Respiratory rate: 22 * Temperature: Afebrile * Oxygen saturation: 99% on room air * Lungs are clear on auscultation. * Patient reports good appetite. * Patient attempted to use a post-op shoe (men's large) but it did not fit prope rly. * Patient demonstrates positive attitude towards recovery, acknowledging progress while recognizing there is still improvement to be made. Intake and Output: Intake & Output 07/24/24 07/25/24 07/26/24 07/27/24 11:59 11:59 11:59 11:59 Intake Total 1961 400 / 400 0 / 0 480 / 480 Balance 1961 400 / 400 0 / 0 480 / 480 Physical Exam Oriented: Normal, Time and Person Eyes: Normal Nose: Normal Respiratory: Normal; negative Diminished, Wheezes, Rales or Rhonchi Cardiovascular: Other (DP and PT pulses intact. CFT WNL to all digits. Epicritic sensation intact. ) Tenderness: Normal Skin: Other (No open wounds, soft tissue masses, or preulcerative lesions. ) Musculoskeletal: Left and Foot (Tender to plantar aspect of fifth metatarsal. No pain on fifth digit ROM. No pain at site of fracture. No pain on eversion, inversion, dorsiflexion, or plantarflexion. MSK is 5/5 to all groups. ) Psychiatric: Normal Mood Description: Calm Speech Pattern: Clear and Appropriate Laboratory and Diagnostics 07/26/24 05:55 07/26/24 05:55 Labs: Laboratory WBC 7.7 X10^3/uL (3.6-10.0) 07/26/24 05:55 RBC 3.39 X10^6/uL (3.5-5.4) L 07/26/24 05:55 Hgb 11.0 g/dL (12.0-16.0) L 07/26/24 05:55 Hct 32.2 % (36.0-47.0) L 07/26/24 05:55 MCV 95.0 fL (80.0-100.0) 07/26/24 05:55 MCH 32.5 pg (27.0-34.0) 07/26/24 05:55 MCHC 34.2 g/dL (33.0-35.0) 07/26/24 05:55 RDW 14.9 % (11.6-16.5) 07/26/24 05:55 Plt Count 186 X10^3/uL (150.0-450.0) 07/26/24 05:55 MPV 11.1 fL (7.4-11.0) H 07/26/24 05:55 Neut % (Auto) 38.0 % (42.0-75.0) L 07/26/24 05:55 Lymph % (Auto) 48.2 % (21.0-51.0) 07/26/24 05:55 [place] % (Auto) 8.8 % (0.0-13.0) 07/26/24 05:55 Eos % (Auto) 3.7 % (0.9-2.9) H 07/26/24 05:55 Baso % (Auto) 1.3 % (0.2-1.0) H 07/26/24 05:55 Neut # (Auto) 2.9 x10^3/uL (2.2-4.8) 07/26/24 05:55 Lymph # (Auto) 3.7 X10^3/uL (1.3-2.9) H 07/26/24 05:55 [place] # (Auto) 0.7 x10^3/uL (0.3-0.8) 07/26/24 05:55 Eos # (Auto) 0.3 x10^3/uL (0.0-0.2) H 07/26/24 05:55 Baso # (Auto) 0.1 X10^3/uL (0.0-0.1) 07/26/24 05:55 Absolute Nucleated RBC 0.0 /100WBC 07/26/24 05:55 Sodium 139 mmol/L (136-145) 07/26/24 05:55 Corrected Sodium TNP 07/26/24 05:55 Potassium 3.8 mmol/L (3.5-5.1) 07/26/24 05:55 Chloride 108 mmol/L (98-107) H 07/26/24 05:55 Carbon Dioxide 23.7 mmol/L (21-32) 07/26/24 05:55 BUN 19 mg/dL (7-18) H 07/26/24 05:55 Creatinine 0.85 mg/dL (0.55-1.02) 07/26/24 05:55 Est GFR (MDRD) Af Amer > 60 (>60) 07/26/24 05:55 Est GFR (MDRD) Non-Af > 60 (>60) 07/26/24 05:55 Glucose 103 mg/dL (65-99) H 07/26/24 05:55 Calcium 9.3 mg/dL (8.5-10.1) 07/26/24 05:55 Corrected Calcium 10.7 mg/dL (8.5-10.1) H 07/26/24 05:55 Magnesium 1.9 mg/dL (2.0-2.9) L 07/26/24 05:55 Total Bilirubin 0.40 mg/dL (0.2-1.0) 07/26/24 05:55 AST 20 Units/L (15-37) 07/26/24 05:55 ALT 18 Units/L (12-78) 07/26/24 05:55 Alkaline Phosphatase 65 Units/L (46-116) 07/26/24 05:55 Total Protein 4.9 g/dL (6.4-8.2) L 07/26/24 05:55 Albumin 2.2 g/dL (3.4-5.0) L 07/26/24 05:55 Globulin 2.7 g/dL (2.5-4.5) 07/26/24 05:55 Albumin/Globulin Ratio 0.8 Ratio (1.1-2.1) L 07/26/24 05:55 Radiology Reviewed: Yes Plan (1) Fracture of proximal phalanx of lesser toe of left foot: Status: Acute Plan: I offered the patient a Unna boot but she declined. Therefore I will put in a consult for podiatry to see what they could offer and recommend. I offered her a postop boot but she also declined this as well. (2) Excessive somnolence disorder: Status: Resolved Narrative Support Text: Improved since stopping Ambien along with 2 other medications used to treat insomnia. (3) Chronic knee pain after total replacement of left knee joint: Status: Acute Plan: Pain control and continue physical therapy. (4) Poor motivation: Status: Resolved Plan: Encouraged patient to get more active in order to ambulate on her own again without assistance. (5) Difficulty in walking involving joint: Status: Acute (6) Hypertension: Status: Chronic Qualifiers: Hypertension type: primary hypertension Qualified Code(s): I10 - Essential (primary) hypertension Narrative Support Text: Stable. (7) Physical deconditioning: Status: Acute Plan: 1. Continue using the resistance band to improve strength with the current exercise regimen. 2. Check for the availability of a properly fitting post-op shoe in size 9. 3. Encourage continued daily activities to improve mobility and strength. 4. Monitor progress with walking and activities of daily living. 5. Continue physical therapy and swing bed admission at this time.
[2024-07-26] MEDS: NYSTATIN POWDER TOP SCH (21:54)
[2024-07-28 06:22] LABS: MAGNESIUM 1.9 mg/dL (2.0-2.9); POTASSIUM 4.1 mmol/L (3.5-5.1)
[2024-07-29 06:18] LABS: BASOPHILS # (AUTO) 0.1 X10^3/uL (0.0-0.1); BASOPHILS % (AUTO) 1.4 % (0.2-1.0); EOSINOPHILS # (AUTO) 0.3 x10^3/uL (0.0-0.2); EOSINOPHILS % (AUTO) 3.8 % (0.9-2.9); HEMATOCRIT 31.1 % (36.0-47.0); HEMOGLOBIN 10.6 g/dL (12.0-16.0); LYMPHOCYTES % (AUTO) 52.1 % (21.0-51.0); MEAN CORPUSCULAR HEMOGLOBIN 32.2 pg (27.0-34.0); MEAN CORPUSCULAR HGB CONC 34.1 g/dL (33.0-35.0); MEAN CORPUSCULAR VOLUME 94.2 fL (80.0-100.0); MEAN PLATELET VOLUME 10.4 fL (7.4-11.0); MONOCYTES # (AUTO) 0.6 x10^3/uL (0.3-0.8); MONOCYTES % (AUTO) 8.2 % (0.0-13.0); NEUTROPHILS # (AUTO) 2.6 x10^3/uL (2.2-4.8); NEUTROPHILS % (AUTO) 34.5 % (42.0-75.0); PLATELET COUNT 209 X10^3/uL (150.0-450.0); RED CELL DISTRIBUTION WIDTH 14.7 % (11.6-16.5); WHITE BLOOD COUNT 7.7 X10^3/uL (3.6-10.0)
[2024-07-29 06:45] LABS: ALANINE AMINOTRANSFERASE 15 Units/L (12-78); ALBUMIN 2.3 g/dL (3.4-5.0); ALKALINE PHOSPHATASE 70 Units/L (46-116); ASPARTATE AMINO TRANSFERASE 16 Units/L (15-37); BLOOD UREA NITROGEN 18 mg/dL (7-18); CARBON DIOXIDE 22.3 mmol/L (21-32); CHLORIDE 109 mmol/L (98-107); COR CA(FOR HYPOALB) 10.4 mg/dL (8.5-10.1); CREATININE 0.82 mg/dL (0.55-1.02); GLUCOSE 103 mg/dL (65-99); POTASSIUM 3.8 mmol/L (3.5-5.1); SODIUM 141 mmol/L (136-145); TOTAL PROTEIN 4.9 g/dL (6.4-8.2); eGFR NON BLACK RACES > 60 (>60)
[2024-07-29] MEDS: K-DUR TAB 20 MEQ PO SCH (09:55)
[2024-07-29] MEDS: CONSULT PHARMACY - POTASSIUM & MAGNESIUM XX SCH (20:09)
[2024-07-30 06:05] LABS: BASOPHILS % (AUTO) 0.2 % (0.2-1.0); EOSINOPHILS # (AUTO) 0.4 x10^3/uL (0.0-0.2); EOSINOPHILS % (AUTO) 4.8 % (0.9-2.9); HEMATOCRIT 31.8 % (36.0-47.0); HEMOGLOBIN 10.7 g/dL (12.0-16.0); LYMPHOCYTES # (AUTO) 4.2 X10^3/uL (1.3-2.9); LYMPHOCYTES % (AUTO) 56.7 % (21.0-51.0); MEAN CORPUSCULAR HGB CONC 33.6 g/dL (33.0-35.0); MEAN CORPUSCULAR VOLUME 95.3 fL (80.0-100.0); MEAN PLATELET VOLUME 10.6 fL (7.4-11.0); MONOCYTES # (AUTO) 0.5 x10^3/uL (0.3-0.8); MONOCYTES % (AUTO) 7.4 % (0.0-13.0); NEUTROPHILS # (AUTO) 2.3 x10^3/uL (2.2-4.8); NEUTROPHILS % (AUTO) 30.9 % (42.0-75.0); PLATELET COUNT 213 X10^3/uL (150.0-450.0); RED BLOOD COUNT 3.33 X10^6/uL (3.5-5.4); RED CELL DISTRIBUTION WIDTH 14.9 % (11.6-16.5); WHITE BLOOD COUNT 7.3 X10^3/uL (3.6-10.0)
[2024-07-30 06:21] LABS: ALANINE AMINOTRANSFERASE 14 Units/L (12-78); ALBUMIN 2.2 g/dL (3.4-5.0); ALKALINE PHOSPHATASE 73 Units/L (46-116); ASPARTATE AMINO TRANSFERASE 16 Units/L (15-37); BLOOD UREA NITROGEN 18 mg/dL (7-18); CALCIUM 8.8 mg/dL (8.5-10.1); CARBON DIOXIDE 22.5 mmol/L (21-32); CHLORIDE 110 mmol/L (98-107); COR CA(FOR HYPOALB) 10.2 mg/dL (8.5-10.1); CREATININE 0.95 mg/dL (0.55-1.02); GLUCOSE 105 mg/dL (65-99); MAGNESIUM 1.7 mg/dL (2.0-2.9); POTASSIUM 3.8 mmol/L (3.5-5.1); SODIUM 141 mmol/L (136-145); TOTAL PROTEIN 4.9 g/dL (6.4-8.2); eGFR NON BLACK RACES > 60 (>60)
[2024-07-30] MEDS ORDERED: CONSULT PHARMACY - POTASSIUM & MAGNESIUM XX SCH (07:00)
[2024-07-30] MEDS ORDERED: HALLS COUGH DROPS MT PRN (09:15)
[2024-07-30] MEDS: MAG-OX TAB PO SCH (09:36)
[2024-07-30] MEDS: K-DUR TAB 20 MEQ PO SCH (09:37)
--- NOTE | 2024-07-30 16:19 | RAD ---
EXAM:CHEST, 1 VIEWHISTORY:COUGH, CONGESTION ;COMPARISON:Chest x-ray dated May 30, 2022FINDINGS:The trachea is midline. The cardiac silhouette is enlarged. Central peribronchial wall thickening and interstitial opacities are seen which would imply a bronchiolitis/bronchitis.The remaining lungs are clear without focal infiltrate or effusion. No pneumothorax is identified.There is no evidence for CHF or pulmonary edema. Overall, the examination is stable compared to the prior study.The bony thorax is unremarkable. There is an unchanged left-sided cardiac pacing device and pacing leads.IMPRESSION:Chest findings suggesting a respiratory bronchiolitis/bronchitis without evidence for lobar infiltrates or effusions.Persistent cardiomegaly with unchanged left-sided cardiac pacing device and pacing leads. No evidence for CHF.THIS IS AN ELECTRONICALLY VERIFIED FINAL [id number]/2024 4:15 PM - Electronically signed by Bert Quintana MD
[2024-07-31 05:52] LABS: BASOPHILS # (AUTO) 0.1 X10^3/uL (0.0-0.1); BASOPHILS % (AUTO) 1.4 % (0.2-1.0); EOSINOPHILS # (AUTO) 0.4 x10^3/uL (0.0-0.2); HEMATOCRIT 32.1 % (36.0-47.0); HEMOGLOBIN 10.9 g/dL (12.0-16.0); LYMPHOCYTES % (AUTO) 51.2 % (21.0-51.0); MEAN CORPUSCULAR HEMOGLOBIN 32.3 pg (27.0-34.0); MEAN CORPUSCULAR HGB CONC 33.9 g/dL (33.0-35.0); MEAN CORPUSCULAR VOLUME 95.3 fL (80.0-100.0); MEAN PLATELET VOLUME 10.4 fL (7.4-11.0); MONOCYTES # (AUTO) 0.6 x10^3/uL (0.3-0.8); MONOCYTES % (AUTO) 8.2 % (0.0-13.0); NEUTROPHILS # (AUTO) 2.7 x10^3/uL (2.2-4.8); NEUTROPHILS % (AUTO) 34.2 % (42.0-75.0); PLATELET COUNT 208 X10^3/uL (150.0-450.0); RED BLOOD COUNT 3.37 X10^6/uL (3.5-5.4); WHITE BLOOD COUNT 7.8 X10^3/uL (3.6-10.0)
[2024-07-31 06:24] LABS: ALANINE AMINOTRANSFERASE 15 Units/L (12-78); ALBUMIN 2.3 g/dL (3.4-5.0); ALKALINE PHOSPHATASE 78 Units/L (46-116); ASPARTATE AMINO TRANSFERASE 14 Units/L (15-37); BLOOD UREA NITROGEN 18 mg/dL (7-18); CARBON DIOXIDE 23.1 mmol/L (21-32); CHLORIDE 110 mmol/L (98-107); COR CA(FOR HYPOALB) 10.4 mg/dL (8.5-10.1); COR NA(FOR HYPERGLY) 141 mmol/L (136-145); CREATININE 0.89 mg/dL (0.55-1.02); GLUCOSE 113 mg/dL (65-99); MAGNESIUM 1.7 mg/dL (2.0-2.9); SODIUM 141 mmol/L (136-145); TOTAL PROTEIN 4.9 g/dL (6.4-8.2); eGFR NON BLACK RACES > 60 (>60)
[2024-07-31] MEDS ORDERED: CONSULT PHARMACY - POTASSIUM & MAGNESIUM XX SCH (07:00)
[2024-07-31] MEDS: MAG-OX TAB PO SCH (10:17)
[2024-08-01] MEDS ORDERED: CONSULT PHARMACY - POTASSIUM & MAGNESIUM XX SCH (07:00)
[2024-08-01 07:58] VITALS: BP 137/68; PULSE 70; RESP 19; TEMP 97.8; O2SAT 95
--- NOTE | 2024-08-01 08:23 | PCM.PROG ---
Progress Note Progress Note for Day of Date of Exam: 07/30/24 Subjective Subjective: Azucena has some swelling on her left side, which appears to be fluid accumulation. I observed striae (stretch bae) in the area. Her protein and albumin levels are low. She reports being able to get up and move around, albeit slowly. She can use the bathroom independently and is able to shower at this time. Her energy level is reported as "a little better" and she's sleeping better at night. Yesterday, she was up all day, lying down around 5 PM and getting up around 8 PM. Azucena reports having a cough. Upon examination, her lungs sound more coarse. She hasn't observed any yellow or green mucus. She appears to be improving in terms of staying out of bed during the day. Past Medical Family Social History Past Med/Fam/Surg Hx: No changes since H&P Allergies: Allergies duloxetine [From Cymbalta] Adverse Reaction (Verified 05/27/22 14:18) latex Adverse Reaction (Verified 07/16/24 12:09) Review of Systems ROS: No change since H&P Vital Signs and I&O's Vital Signs: Vital Signs Temperature 97.8 F Pulse Rate [Radial] 70 Respiratory Rate 19 Blood Pressure [Left Arm] 137/68 O2 Sat by Pulse Oximetry 95 Intake and Output: Intake & Output 07/29/24 07/30/24 07/31/24 08/01/24 11:59 11:59 11:59 11:59 Intake Total 840 / 840 1530 / 1530 1264 / 1264 2240 / 2240 Balance 840 / 840 1530 / 1530 1264 / 1264 2240 / 2240 Physical Exam Oriented: Normal, Time and Person Eyes: Normal Nose: Normal Respiratory: Normal; negative Diminished, Wheezes, Rales or Rhonchi Cardiovascular: Other (DP and PT pulses intact. CFT WNL to all digits. Epicritic sensation intact. ) Tenderness: Normal Skin: Other (No open wounds, soft tissue masses, or preulcerative lesions. ) Musculoskeletal: Left and Foot (Tender to plantar aspect of fifth metatarsal. No pain on fifth digit ROM. No pain at site of fracture. No pain on eversion, inversion, dorsiflexion, or plantarflexion. MSK is 5/5 to all groups. ) Psychiatric: Normal Mood Description: Calm Speech Pattern: Clear and Appropriate Laboratory and Diagnostics 07/31/24 05:39 07/31/24 05:39 Labs: Laboratory WBC 7.8 X10^3/uL (3.6-10.0) 07/31/24 05:39 RBC 3.37 X10^6/uL (3.5-5.4) L 07/31/24 05:39 Hgb 10.9 g/dL (12.0-16.0) L 07/31/24 05:39 Hct 32.1 % (36.0-47.0) L 07/31/24 05:39 MCV 95.3 fL (80.0-100.0) 07/31/24 05:39 MCH 32.3 pg (27.0-34.0) 07/31/24 05:39 MCHC 33.9 g/dL (33.0-35.0) 07/31/24 05:39 RDW 15.0 % (11.6-16.5) 07/31/24 05:39 Plt Count 208 X10^3/uL (150.0-450.0) 07/31/24 05:39 MPV 10.4 fL (7.4-11.0) 07/31/24 05:39 Neut % (Auto) 34.2 % (42.0-75.0) L 07/31/24 05:39 Lymph % (Auto) 51.2 % (21.0-51.0) H 07/31/24 05:39 Knott % (Auto) 8.2 % (0.0-13.0) 07/31/24 05:39 Eos % (Auto) 5.0 % (0.9-2.9) H 07/31/24 05:39 Baso % (Auto) 1.4 % (0.2-1.0) H 07/31/24 05:39 Neut # (Auto) 2.7 x10^3/uL (2.2-4.8) 07/31/24 05:39 Lymph # (Auto) 4.0 X10^3/uL (1.3-2.9) H 07/31/24 05:39 Knott # (Auto) 0.6 x10^3/uL (0.3-0.8) 07/31/24 05:39 Eos # (Auto) 0.4 x10^3/uL (0.0-0.2) H 07/31/24 05:39 Baso # (Auto) 0.1 X10^3/uL (0.0-0.1) 07/31/24 05:39 Absolute Nucleated RBC 0.0 /100WBC 07/31/24 05:39 Sodium 141 mmol/L (136-145) 07/31/24 05:39 Corrected Sodium 141 mmol/L (136-145) 07/31/24 05:39 Potassium 4.0 mmol/L (3.5-5.1) 07/31/24 05:39 Chloride 110 mmol/L (98-107) H 07/31/24 05:39 Carbon Dioxide 23.1 mmol/L (21-32) 07/31/24 05:39 BUN 18 mg/dL (7-18) 07/31/24 05:39 Creatinine 0.89 mg/dL (0.55-1.02) 07/31/24 05:39 Est GFR (MDRD) Af Amer > 60 (>60) 07/31/24 05:39 Est GFR (MDRD) Non-Af > 60 (>60) 07/31/24 05:39 Glucose 113 mg/dL (65-99) H 07/31/24 05:39 Calcium 9.0 mg/dL (8.5-10.1) 07/31/24 05:39 Corrected Calcium 10.4 mg/dL (8.5-10.1) H 07/31/24 05:39 Magnesium 1.7 mg/dL (2.0-2.9) L 08/01/24 05:30 Total Bilirubin 0.20 mg/dL (0.2-1.0) 07/31/24 05:39 AST 14 Units/L (15-37) L 07/31/24 05:39 ALT 15 Units/L (12-78) 07/31/24 05:39 Alkaline Phosphatase 78 Units/L (46-116) 07/31/24 05:39 Total Protein 4.9 g/dL (6.4-8.2) L 07/31/24 05:39 Albumin 2.3 g/dL (3.4-5.0) L 07/31/24 05:39 Globulin 2.6 g/dL (2.5-4.5) 07/31/24 05:39 Albumin/Globulin Ratio 0.9 Ratio (1.1-2.1) L 07/31/24 05:39 SARS-CoV-2 (PCR) Negative (NEGATIVE) 07/30/24 21:40 Influenza Type A (PCR) Negative (NEGATIVE) 07/30/24 21:40 Influenza Type B (PCR) Negative (NEGATIVE) 07/30/24 21:40 RSV (PCR) Negative (NEGATIVE) 07/30/24 21:40 Plan (1) Fracture of proximal phalanx of lesser toe of left foot: Status: Acute Plan: I offered the patient a Unna boot but she declined. Therefore I will put in a consult for podiatry to see what they could offer and recommend. I offered her a postop boot but she also declined this as well. (2) Excessive somnolence disorder: Status: Resolved (3) Chronic knee pain after total replacement of left knee joint: Status: Acute Plan: Pain control and continue physical therapy. (4) Poor motivation: Status: Resolved Plan: Encouraged patient to get more active in order to ambulate on her own again without assistance. (5) Difficulty in walking involving joint: Status: Acute (6) Hypertension: Status: Chronic Qualifiers: Hypertension type: primary hypertension Qualified Code(s): I10 - Essential (primary) hypertension (7) Physical deconditioning: Status: Acute Plan: I will order home health care for Azucena. We will start working on discharge planning for Jul 2024. I've ordered a chest X-ray to check for any potential respiratory issues. I've recommended that Azucena work hard with the physical therapist today. We will aim to get her home before Lasara. I will have maintenance check the shower temperature in her room.
[2024-08-01] MEDS: MAG-OX TAB PO SCH (10:51)
== END 2024-08-01 12:45 | disposition home health service (06) | DRG 563 ==
LOC: MED/SURG 11:45
PROVIDERS: ADMIT Family Medicine; ATTEND Family Medicine
DX: M25.562 Pain in left knee; R26.2 Difficulty in walking, not elsewhere classified; S92.512A Displaced fracture of proximal phalanx of left lesser toe(s), initial encounter for closed fracture; G89.29 Other chronic pain; Z96.652 Presence of left artificial knee joint; Z03.818 Encounter for observation for suspected exposure to other biological agents ruled out; W18.39XA Other fall on same level, initial encounter; E83.42 Hypomagnesemia; I10 Essential (primary) hypertension; G47.10 Hypersomnia, unspecified; R53.81 Other malaise; Z51.89 Encounter for other specified aftercare